=== PATIENT | female | born 2005 | race Caucasian/White ===

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

== ENCOUNTER 2025-04-26 08:13 | Emergency (ER) | payer OTHER, SELFPAY ==
--- OUTSIDE RECORDS SUMMARY | 2025-04-26 08:13 | XMS_ITS | Encounter Summary ---
Author Organization [facility] Address [address] [place] [address] Phone Care Team Providers Care Double End Tenoner Setter Name Role Phone Geena Ravi MD Primary Care Provider [phone] Reason for Visit * Reason Comments ED Admission Encounter Details Date Type Department Care Team (Late st Contact Info) Description 04/26/2025 8:13 AM EDT - Present Emergency [facility] - Patient Ping Social History Tobacco Use Types Packs/Day Years Used Date Smoking Tobacco: Never Assessed Alcohol Use Standard Drinks/Week Comments Never 0 (1 standard drink = 0.6 oz pur e alcohol) Hunger/Food Answer Date Recorded In the last 12 months, did y ou or your family ever eat less than you felt you should because there wasn't enough money for food? No 02/14/2024 Stable Housing Answer Date Recorded Are you worried that in the next 2 months you may not have stable housing? No 02/14/2024 Transportation Concerns Answer Date Rec orded In the last 12 months, have you or your family ever had to go without healthcare because you didn't have a way to get there? No 02/14/2024 Hazards in Home Answer Date Recorded Think about the place you li ve. Do you have problems with any of the following? Pests (mice or roaches), mold, no/not working smoke detectors, water leaks, no window guards. No 2023 Financing Utilities Answer Date Recorde d In the last 12 months, has t he electric, gas, oil, or water company threatened to shut off your services in your home? No 02/14/2024 Safety at Home Answer Date Recorded Are you or your family worried about feeling saf e in your home? No 02/14/2024 Outside Support Answer Date Recorded Do you feel that you need mo re support from other people or programs to help you care for yourself or your family? No 02/14/2024 Understanding Health Concerns Answer Da te Recorded Do you need help understandi ng your or your child's healthcare needs (diagnosis, medications, plan, etc.)? No 02/14/2024 Financing Health Concerns Answer Date R ecorded In the last 12 months, was t here a time when your child needed to see a doctor or get medications or supplies but could not because of cost? No 02/14/2024 Missing School or Work Answer Date Víctor rded Did you or your child miss s chool or work because of a health problem that could have been avoided? No 02/14/2024 Child Education Answer Date Recorded Do you have concerns about y our/your child's learning or behavior in school, preschool, or daycare? No 02/14/2024 Comments No Sex and Gender Information Value Date Recorded Sex Assigned at Female 02/14/2024 9:20 AM EDT Legal Sex Female 4:20 PM EDT Gender Identity Female 02/14/2024 9:20 AM EDT Sexual Orientation Straight 02/14/2024 9: 20 AM EDT documented as of this encounter Plan of Treatment Not on file documented as of this encounter Visit Diagnoses Not on filedocumented in this encounter Care Teams Double End Tenoner Setter Relationship Specialty [place] [address] [place], [place] [address] [address] PCP - General Pediatrics 07/19/22 documented as of this encounter
[2025-04-26 08:20] VITALS: BP 105/55; PULSE 80; RESP 18; TEMP 36.8; O2SAT 99; BMI 27.4
--- OUTSIDE RECORDS SUMMARY | 2025-04-26 08:43 | XMS_ITS | Clinical Summary ---
Author Organization [facility] Address [address] [place] [address] Phone Care Team Providers Care Aircraft Maintenance Instructor Name Role Phone Physician, Pcp Unknown Primary Care Provider Lyssa vailable Allergies Active Allergy Reactions Criticality Noted Date Comments Latex 02/21/2025 Other Reaction(s): Swelling of labia Encounters Date Type Department Care Team Description 02/21/2025 5:16 PM EDT - 02/21/2025 7:44 PM EDT Emergency [facility] [address] [place] [address] Lymphadenopathy (Primary Dx); Acute pharyngitis due to other specified organisms Discharge Disposition: Home or Self Care from Last 3 Months Social History Tobacco Use Types Packs/Day Years Used Date Smoking Tobacco: Never Assessed Comments Unknown Sex and Gender Information Value Date Recorded Sex Assigned at Not on file Legal Sex Female 7:05 AM EST Gender Identity Not on file Sexual Orientation Not on file Obstetrics History Growth Chart Information Age Height Weight Hdylns-[id number] th Percentile BMI Percentile Head Circum Head Circum Percentile Date 19 years 157.5 cm (5' 2 ) 63.5 kg (140 lb) 82.54%* 2024 * [facility] (Girls, 2-20 Years) Last Filed Vital Signs Vital Sign Reading Time Taken Comments Blood Pressure 123/81 02/21/2025 7:30 PM EDT Pulse 62 02/21/2025 7:30 PM EDT Temperature 36.8 C (98.2 F) 02/21/2025 7:30 PM EDT Respiratory Rate 18 02/21/2025 7:30 PM EDT Oxygen Saturation 100% 02/21/2025 7:30 PM EDT Inhaled Oxygen Concentration - - Weight 63.5 kg (140 lb) 02/21/2025 5:10 PM EDT Height 157.5 cm (5' 2 ) 02/21/2025 5:10 PM EDT Body Mass Index 25.61 02/21/2025 5:10 PM EDT Plan of Treatment Health Maintenance Due Date Last Done Comments Gonorrhea/Chlamydia Screening 2005 HIV Screening 09/05/2022 Hepatitis C Screening 09/05/2022 Social Influencers of Health Screening 09/05/2022 COVID-19 Vaccine ( season) 2024 03/23/2021, 02/27/2021 Depression Screening 10/03/2024 Annual Well Child Visit (3-21 years old) 02/13/2025 02/14/2024, 12/21/2022 Influenza Vaccine (#1) 2025 , 07/29/2022, 07/21/2021, Additional history exists DTaP,Tdap,and Td Vaccines (7 - Td or Tdap) 12/21/2027 12/20/2017, 11/14/2009, 03/13/2008, Additional history exists Hepatitis B Vaccines Completed 07/26/2006, 2005, 2005, Additional history exists HIB Vaccines Completed 11/14/2009, 12/02, 07/26/2006, Additional history exists IPV Vaccines Completed 11/14/2009, 03/2007, 04/25/2006, Additional history exists MMR Vaccines Completed 06/25/2011, 12/22/2006 Varicella Vaccines Completed 06/25/2011, 11/22/2006 Hepatitis A Vaccines Completed 12/20/2017, 11/29/19 08 HPV Vaccines Completed 07/21/2018, 07/04, 09/19/2015 Meningococcal ACWY Vaccine Completed 07/29/2022, Meningococcal B Vaccine Completed 02/14/2024, 12/21 Pneumococcal Vaccine: Pediatrics (0 to 5 Years) and At-Risk Patients (6 to 49 Years) Aged Out No longer eligible based on patient's age to complete this topic RSV Immunization Patients Under 20 months Aged Out No longer eligible based on patient's age to complete this topic Care Teams Aircraft Maintenance Instructor Relationship Specialty Start Date End Date Physician, Pcp Unknown PCP - General 02/21/25
--- OUTSIDE RECORDS SUMMARY | 2025-04-26 08:43 | XMS_ITS | Encounter Summary ---
Author Organization [facility] Address [address] [facility] [address] [place] [address] Care Team Providers Care Probation Counselor Name Role Phone Unavailable Primary Care Provider Unavailabl e Reason for Visit * Reason Onset Date Comments insurance posting 03/01/2024 Encounter Details Date Type Department Care Team (Late st Contact Info) Description 03/01/[address] [facility] [address], [place] [phone] Jessica Ramos DDS [address], [place] [phone] insurance posting Social History Tobacco Use Types Packs/Day Years Used Date Smoking Tobacco: Never Smokeless Tobacco: Never Alcohol Use Standard Drinks/Week Comments Defer 0 (1 standard drink = 0.6 oz pur e alcohol) Comments Unknown Sex and Gender Information Value Date Recorded Sex Assigned at Female 03/01/2024 9:55 AM EDT Legal Sex Female 9:52 AM EDT Gender Identity Female 03/01/2024 9:55 AM EDT Sexual Orientation Choose not to disclose 2023 9:55 AM EDT documented as of this encounter Miscellaneous Notes * Telephone Encounter - Nida Clark - 03/01/2024 9:58 AM EDT Unable to post insurance due to website not working to view history. Confirmation of elibility posted DR documented in this encounter Plan of Treatment Not on file documented as of this encounter Visit Diagnoses Not on filedocumented in this encounter
--- OUTSIDE RECORDS SUMMARY | 2025-04-26 08:43 | XMS_ITS | Data Portability ---
Author Organization [place] - [facility], Allergy Address [address] [facility] [address] [place] [address] Care Team Providers Care Process Artist Name Role Phone MEEKRISH Referring Provider WILMAR SORIANO Primary Care Provider Assessment Encounter Date Assessment Date Assessment LastModified by Organization Details LastModified Time 12/20/2024 12/20/2024 19yo female with history of epistaxis presents for evaluation of right epistaxis. Nasal examination today identified a prominent bleeding source on the anterior right septum. This site was cauterized with silver nitrate. Basic epistaxis precautions were discussed including avoidance of nose blowing, nose picking, straining, bending forward, exertion, heavy lifting, steamy showers, and sneezing with the mouth open for two weeks. Recommend local wound care with saline nasal spray 4-6 times daily, nasal saline gel at night, Afrin with episodes of bleeding and packing the nose with Bleed Cease (available OTC) if any additional bleeding. May use Ponaris Nasal Emollient 1/2 dropper twice daily as needed with dryness. Patient will return in 4 to 6 weeks for reevaluation. [email or web address] Not available 12/20/2024 17:28:32 Plan of Treatment Reminders Order Date Submit Date Provider Last Modified By Organization Details Last Modified Time Details Appointments None recorded . Lab None recorded . Referral None recorded . Procedures None recorded . Surgeries None recorded . Imaging None recorded . Medication Orders Mchenry Saline Gel nasal spray 025 12/21/19 [facility]/Pharmacy #[id number], [address] [facility], [place], [address], 03/20/202 5 13:13:20 Mchenry Saline nasal gel 025 12/21/19 25 [facility]/Pharmacy #[id number], [address] [place], [address], 5 13:13:20 Patient TargetsNo targets recorded. Patient InstructionsNo instructions recorded. Reason for Referral None Reported. Problems Name Problem SNOMED Code Status Onset Date Resolution Date Notes Provider Name and Address Organization Details Recorded Time Headache 89627628 Active 2019 Headache; Note: Date Diagnosed : 03/14/2020 8:45 AM (R51) Not Available [facility] 4 02:18:51 Palpitati ons 50717182 Active 2019 Palpitati ons; Note: Date Diagnosed : 03/14/2020 8:45 AM (R00.2) Not Available [facility] 4 02:18:51 Abnormal auditory perceptio n 27181636 Active 2019 Other abnormal auditory perceptio ns, bilateral ; Note: Date Diagnosed : 03/14/2020 8:45 AM (H93.293) Not Available [facility] 4 02:18:39 Dizziness and giddiness 488738388 Active 2019 Dizziness and giddiness ; Note: Date Diagnosed : 03/14/2020 8:45 AM (R42) Not Available [facility] 4 02:19:04 Bilateral temporoma ndibular joint pain 38923147290 869710 Active 2021 Arthralgi a of bilateral temporoma ndibular joint; Note: Date Diagnosed : 01/18/2022 1:49 PM (M26.623) Not Available [facility] 4 02:18:16 Bilateral earache 668179237 Active 2021 Otalgia, bilateral ; Note: Date Diagnosed : 01/18/2022 1:49 PM (H92.03) Not Available [facility] 4 02:18:36 Referred otalgia 72340729 Active 2021 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 - [facility] 09:16:23 Problem Notes None recorded. Procedures Surgical History Date Name Laterality Status Provider Name and Address Organization Details Recorded Time Epistaxis Simple Nasal Cautery Right completed JOSR OLIVEIRA PA-C [address] [facility],[place] [address], [place], [address], [facility] - [facility] 12/20/2024 17:27:53 Imaging Results None recorded. Procedure Notes None recorded. Medical Equipment None Reported. Allergies No known drug allergies Medications Name Sig Start Date Stop Date Status Note LastModified by Organization Details LastModified Time metronidazo le 500 mg tablet TAKE 1 TABLET BY MOUTH EVERY 12 HOURS FOR 7 DAYS 12/20 completed Not Available Not Available Not Available acetaminoph en 500 mg tablet TAKE 1 TABLET BY MOUTH EVERY 4 TO 6 HOURS NEEDED 12/20 completed Not Available Not Available Not Available amoxicillin 875 mg tablet TAKE 1 TABLET BY MOUTH TWICE A DAY 12/20 completed Not Available Not Available Not Available Mchenry Saline nasal gel Take 1 applicati on every day by nasal route at bedtime for 42 days, for nasal hydration . 2024 active Not Available Not Available Not Avai lable ibuprofen 600 mg tablet TAKE 1 TABLET BY MOUTH EVERY 6 TO 8 HOURS NEEDED 12/20 completed Not Available Not Available Not Available methylpredn isolone 4 mg tablets in a dose pack TAKE 6 TABLETS ON DAY 1 DIRECTED ON PACKAGE AND DECREASE BY 1 TAB EACH DAY FOR A TOTAL OF 6 DAYS 12/20 completed Not Available Not Available Not Available amoxicillin 875 mg-potassiu m clavulanate 125 mg tablet TAKE 1 TABLET BY MOUTH EVERY 12 HOURS 12/20 completed Not Available Not Available Not Available oxycodone 5 mg tablet TAKE 1 TABLET EVERY 6 HOURS NEEDED FOR BREAKTHRO UGH PAIN. 12/20 completed Not Available Not Available Not Available Mchenry Saline Gel nasal spray Take 2 sprays every 4-6 hours by nasal route for 42 days, for nasal hydration . 2024 active Not Available Not Available Not Avai lable chlorhexidi ne gluconate 0.12 % mouthwash RINSE MOUTH WITH 15ML (1 CAPFUL) FOR 30 SECONDS IN MORNING AND EVENING AFTER BRUSHING, THEN SPIT 12/20 completed Not Available Not Available Not Available Nexplanon 68 mg subdermal implant active Not Available Not Available Not Available Vitals Date Recorded Body height Body mass index (BMI) Body mass index (BMI) [Percentile] Per age and sex Body weight Provider Name and Address Organization Details Last Updated DateTime 12/20/2024 157.48 cm 24.7 kg/m2 78 % 44497.97 g Monique Rogers [place] - [facility] 12/20/2024 09:16:59 Social History None recorded. Functional Status None recorded. Mental Status None recorded. Family History Nothing Reported. Medical History No medical history recorded. Gynecological HistoryNo gynecological history recorded. Obstetrics History GPAL:G 0 P 0 0 0 0 Past Encounters Encounter ID Performer Location Encounter Start Date Encounter Closed Date Diagnosis/Indication Diagnosis SNOMED-CT Code Diagnosis ICD10 Code Diagnosis Note [id number] JOSR OLIVEIRA PA-C [facility] [address] [address] 12/20/2024 09:11:55 12/20/2024 09:57:22 Anterior epistaxis 831236732 R04.0 Health Concerns Section Related Observation LastModified by Organization Detai ls LastModified Time None Recorded Concern Status LastModified by Organization Details LastModified Time None Recorded Advance Directives Directive None Recorded Payers Insurance Date Sequence Insurance Name Policy Number Policy Nava Covered Member ID Nava Member ID Guarantor Name 12/20/2024 1 [facility] (MEDICAID REPLACEMENT - HMO) [employer] [id number] [employer] Notes Date Note Type Note Provider Name and Address Organization Details Recorded Time 12/20/2024 text/html ROS as noted in the HPI 19yo female presents for evaluation of right recurrent nosebleeds. This occurs 3-4 times daily. This restarted two months ago but occurs throughout the year. She pinches the nose to manage the bleeding. Episodes last 20 minutes. Starts spontaneously. Left cautery in 2021, beneficial. Associated dizziness after the nosebleed. Denies blood thinner or family history of bleeding disorder. VIVIAN LATANYA, MD [address] [place] [address], [phone], [place] - [facility] 12/25/2024 12:58:36 OBGyn Episode No OBEpisode recorded.
[2025-04-26 08:55] LABS: MANUAL DIFF FLAG NO
--- NOTE | 2025-04-26 08:55 | PC.NURSE ---
c/o intermittent upper abd pain/fullness after eating. feels better after vomiting. does not self-induce vomiting. no active vomiting in room. NAD.
[2025-04-26 08:56] LABS: Hematocrit 36.0 % (37.0-47.0); Hemoglobin 11.7 g/dl (12.0-16.0); Imm Gran Abs Auto 0.02 X10*3/uL (0.00-0.03); Imm Gran Pct Auto 0.3 % (0.0-0.4); Lymphocytes Absolute Auto 1.7 X10*3/uL (1.2-4.9); Mean Corpuscular HGB Conc 32.5 g/dl (31.0-35.0); Mean Corpuscular Hemoglobin 25.7 pg (27.0-33.0); Mean Corpuscular Volume 78.9 fL (80.0-98.0); NRBC Abs Auto 0.000 X10*3/uL (0.0-0.012); NRBC Pct Auto 0.0 /100WBC (0.0-0.2); Platelet Count 324 X10*3/uL (160-400); Red Blood Count 4.56 X10*6/uL (4.20-5.50); White Blood Count 7.1 X10*3/uL (4.8-10.8)
[2025-04-26 09:17] LABS: Alanine Aminotransferase 36 U/L (0-31); Albumin Level 4.4 g/dL (3.5-5.0); Alkaline Phosphatase 91 U/L (39-117); Anion Gap 12 (12-20); Aspartate Amino Transferase 33 U/L (5-31); Blood Urea Nitrogen 13 mg/dL (9-16); Calcium 8.9 mg/dL (8.4-10.2); Carbon Dioxide 23 mmol/L (22-29); Chloride 110 mmol/L (96-108); Creatinine Clr Calc Pharmacy 109.1; Estimated Glomerular Filt Rate > 60; Lipase 21 U/L (8-78); Potassium 4.1 mmol/L (3.3-5.1); Sodium 141 mmol/L (135-145); Total Protein 7.2 g/dL (6.5-8.0)
[2025-04-26 09:49] VITALS: BP 113/52; PULSE 65; RESP 16; TEMP 36.8; O2SAT 99
[2025-04-26 09:50] LABS: Appearance Urine Clear; Glucose Urine UA Negative (Negative); PH 7.0 (5.0-9.0); Specific Gravity - Urine 1.025 (1.005-1.025); UMIC TRIGGER UACC YES; UPreg QC Valid YES
--- NOTE | 2025-04-26 10:19 | ED.ABDPAIN ---
HPI - Abdominal Pain General Chief Complaint: Abdominal Pain Stated Complaint: Nausea Stomach Pain Time Seen by Provider: 04/26/25 09:03 Source: patient Mode of arrival: ambulatory Limitations: no limitations History of Present Illness ED Provider: bert cotto down filler HPI narrative: Patient is a 19-year-old female who presents emergency department for evaluation. She reports over the past month she has been experiencing pain in her epigastric region that typically worsens after eating. It has been intermittent in nature. Initially her mother had provided her with some constipation medication though she was not constipated. This did not alleviate her symptoms. She has taken Tums on occasion is unclear whether it has really been of benefit for her. She comes into emergency department today because her pain last night was more severe, she only took Tylenol yesterday which did not alleviate her symptoms. She has not yet seen her primary care provider for this. Denies fevers, chills, chest pain, nausea, vomiting, hematemesis, diarrhea, constipation, hematochezia, melena, dysuria, urinary frequency, urinary urgency, urinary hesitancy, hematuria. Related Data Previous Rx's ?Medication ?Instructions ?Recorded amoxicillin 875 mg-potassium 1 tab PO Q12H 7 days #14 tabs 07/03/21 clavulanate 125 mg tablet (Augmentin) ondansetron HCl 4 mg tablet 4 mg PO Q8H PRN nausea and 07/03/21 (Zofran) vomiting #7 tabs nitrofurantoin 100 mg PO Q12H 7 days #14 caps 06/11/23 monohydrate/macrocrystals 100 mg capsule (Macrobid) omeprazole 20 mg capsule,delayed 20 mg PO DAILY #14 caps 04/26/25 release sucralfate 1 gram tablet 1 g PO BID #30 tabs 04/26/25 Allergies Allergy/AdvReac Type Severity Reaction Status Date / Time guinea pigs Allergy Swelling Uncoded 04/26/25 08:22 Review of Systems Review of Systems Yes all other systems are reviewed and are negative PMFSH Past Medical History Attestation statement: The following information was validated with the patient. Source: old records reviewed Medical History Scoliosis No known health problems No known health problems Social History Social History Advance Directives: No Advance Directives Information Provided: Yes Do you have a plan to hurt others: No Plan Physical Exam ED Vital Signs: Vital Signs - 24 hr 04/26/25 08:20 04/26/25 09:49 Temperature 98.3 F 98.3 F Pulse Rate 80 65 Respiratory Rate 18 16 Blood Pressure 105/55 L 113/52 L Pulse Oximetry 99 99 Oxygen Delivery Method Room Air BMI result Body Mass Index 27.4 Appearance: Alert.?Oriented to person, place and time. No acute distress.?Normal affect.?? Neck: Normal inspection.? Neck supple.?? CVS: Heart sounds normal. Normal heart rate and rhythm.? Pulses normal.?? Respiratory: No respiratory distress.? Lung sounds clear to auscultation bilaterally?? Abdomen: Soft and non-tender. No rebound tenderness at McBurney's point. Negative psoas sign. Negative Rovsing sign. Negative Manjarrez sign. No CVAT. Normoactive bowel sounds. No pulsatile mass.?? Skin: Skin warm and dry.? Normal skin color.? Extremities: No lower extremity edema.? Neuro: Moves all extremities spontaneously. Sensation intact bilaterally. Ambulates with normal steady gait. Medical Decision Making Medical Decision Making MDM Narrative: Patient is a 19-year-old female with no reported past medical history who presents emergency department for evaluation of epigastric abdominal pain intermittent over the past month but worse as of last night as per HPI. Overall she is well-appearing, nontoxic, afebrile. She has a benign examination, no signs of systemic toxicity. Examination is not consistent has been as she has no peritoneal signs. She has no associated chest pain shortness of breath to suggest respiratory pathology such as. No clinical evidence of DVT or history of VTE/malignancy that would suggest pulmonary embolism. No risk factors for ACS and no associated chest pain. Her abdominal examination is benign I have a lower suspicion for acute abdominal etiology such as acute cholecystitis, choledocholithiasis and certainly is without fever jaundice that would suggest acute cholangitis. Possible she may have biliary colic secondary to cholelithiasis they her LFTs and lipase are unremarkable. Symptoms most concerning for GERD/gastritis, no recent hematemesis that would favor PUD. Denies excessive alcohol consumption or history of diabetes that would favor pancreatitis. Will trial GI cocktail department pending re-evaluation. CBC is without leukocytosis, mild microcytic anemia not meeting transfusion criteria, no thrombocytopenia. No significant electrolyte derangement, no JAMES. Minimally elevated AST/ALT at 33/36 with normal lipase. HCG is negative. Urinalysis without evidence of infection. Symptomatic improvement after receiving GI cocktail, feel she is stable for discharge home outpatient follow-up with primary care provider given strict return precautions. All questions answered. Differential Diagnosis Differential Diagnoses: The differential diagnosis associated with the presentation includes (See narrative above) Admission/Observation Consideration of admission/observation: Escalation of care including admission/observation considered (See narrative above ) Lab Data MDM Lab Attestation statement: I reviewed the patient's lab results. 04/26/25 08:46 04/26/25 08:46 Labs: Lab Results 04/26/25 04/26/25 Range/Units 08:46 09:39 WBC 7.1 (4.8-10.8) X10*3/uL RBC 4.56 (4.20-5.50) X10*6/uL Hgb 11.7 L (12.0-16.0) g/dl Hct 36.0 L (37.0-47.0) % MCV 78.9 L (80.0-98.0) fL MCH 25.7 L (27.0-33.0) pg MCHC 32.5 (31.0-35.0) g/dl RDW 15.4 (11.0-16.0) % Plt Count 324 (160-400) X10*3/uL MPV 10.0 (9.4-12.3) fL Immature Gran % (Auto) 0.3 (0.0-0.4) % Neut % (Auto) 62.2 (45-73) % Lymph % (Auto) 23.4 (20-40) % [place] % (Auto) 8.2 (2-11) % Eos % (Auto) 4.9 H (0-4) % Baso % (Auto) 1.0 (0-2) % Lymph # (Auto) 1.7 (1.2-4.9) X10*3/uL [place] # (Auto) 0.6 (0.1-1.2) X10*3/uL Eos # (Auto) 0.4 (0.0-0.4) X10*3/uL Baso # (Auto) 0.1 (0.0-0.2) X10*3/uL Abs Immat Gran (auto) 0.02 (0.00-0.03) X10*3/uL Absolute Neuts (auto) 4.4 (2.0-8.3) x10*3/uL Absolute Nucleated RBC 0.000 (0.0-0.012) X10*3/uL Nucleated RBC % (auto) 0.0 (0.0-0.2) /100WBC Sodium 141 (135-145) mmol/L Potassium 4.1 (3.3-5.1) mmol/L Chloride 110 H (96-108) mmol/L Carbon Dioxide 23 (22-29) mmol/L Anion Gap 12 (12-20) BUN 13 (9-16) mg/dL Creatinine 0.75 (0.5-1.4) mg/dL Estim Creat Clear Calc 109.1 Estimated GFR > 60 Random Glucose 88 (60-115) mg/dL Calcium 8.9 D (8.4-10.2) mg/dL Total Bilirubin 0.3 (0.0-1.0) mg/dL Direct Bilirubin 0.2 (0.0-0.5) mg/dL AST 33 H (5-31) U/L ALT 36 H (0-31) U/L Alkaline Phosphatase 91 (39-117) U/L Total Protein 7.2 (6.5-8.0) g/dL Albumin 4.4 (3.5-5.0) g/dL Lipase 21 (8-78) U/L Beta HCG, Quant < 2 mIU/mL Urine Color Yellow Urine Appearance Clear Urine pH 7.0 (5.0-9.0) Ur Specific [place] 1.025 (1.005-1.025) Urine Protein Negative (Neg-Trace) mg/dL Urine Glucose (UA) Negative (Negative) mg/dL Urine Ketones Negative (Negative) mg/dL Urine Blood Small (1+) H (Negative) Urine Nitrite Negative (Negative) Ur Leukocyte Esterase Negative (Negative) Urine RBC 0-2 (0-2) /HPF Urine WBC 0-5 (0-5) /HPF Ur Squamous Epith Cells 3-5 (0-2) /HPF Urine Bacteria None Seen (None Seen) Hyaline Casts 0-2 (0-2) /LPF Urine Test NEGATIVE (NEGATIVE) Independent Historian Clinical information obtained from an independent historian. History obtained from or confirmed by: Parent External Record Review External record reviewed: Outpatient record Prescription Management I considered prescription management with: Other (See narrative above) Medications Administered Discontinued Medications Generic Name Dose Route Start Last Admin Trade Name Freq PRN Reason Stop Dose Admin Al Hydroxide/Mg Hydroxide 30 ml 04/26/25 10:18 04/26/25 11:06 Magnesium Hydrox/Alum Hydrox 30 Ml Oral.Susp PO 04/26/25 10:19 30 ml ONCE ONE Administration Famotidine 20 mg 04/26/25 10:18 04/26/25 11:06 Famotidine 20 Mg Tablet PO 04/26/25 10:19 20 mg ONCE ONE Administration Lidocaine HCl 15 ml 04/26/25 10:18 04/26/25 11:06 Lidocaine Hcl Viscous 2 % 15 Ml Solution MUCOUS MEM 04/26/25 10:19 15 ml ONCE ONE Administration Discharge Plan Discharge Clinical Impression: Gastritis Patient Disposition: Home, Self-Care Instructions: Gastritis (ED) Additional Instructions: Avoid triggers such as fatty foods, spicy foods, tomatoes, onions, coffee, tea, chocolate, and alcohol. Remaining upright after meals for 1-2 hours. Avoid eating at least 3 hours before bedtime. Try sleeping on an incline if possible. Follow-up with your primary care doctor. Return back to emergency department any new or worsening symptoms or concerns Prescriptions: New omeprazole 20 mg capsule,delayed release(DR/EC) 20 mg PO DAILY Qty: 14 0RF sucralfate 1 gram tablet 1 g PO BID Qty: 30 0RF No Action amoxicillin-pot clavulanate [Augmentin] 875-125 mg tablet 1 tab PO Q12H 7 Days Qty: 14 0RF ondansetron HCl [Zofran] 4 mg tablet 4 mg PO Q8H PRN (Reason: nausea and vomiting) Qty: 7 0RF nitrofurantoin monohyd/m-cryst [Macrobid] 100 mg capsule 100 mg PO Q12H 7 Days Qty: 14 0RF Rx Instructions: must administer with a meal/food Referrals: Physician,None [Primary Care Provider, Medical] Print Language: Libyan
[2025-04-26] MEDS: Magnesium Hydrox/Alum Hydrox 30 ML ORAL.SUSP PO (11:06)
[2025-04-26] MEDS: Lidocaine HCl Viscous 2 % 15 ML SOLUTION MUCOUS MEM (11:06)
[2025-04-26 12:00] VITALS: BP 103/67; PULSE 78; RESP 15; TEMP 37.1; O2SAT 99
--- NOTE | 2025-04-26 12:12 | PC.NURSE ---
reports feeling a little better.
[2025-04-26 12:45] VITALS: BP 103/67; PULSE 78; RESP 15; TEMP 37.1; O2SAT 99
== END 2025-04-26 12:46 | disposition home or self-care (01) ==
PROVIDERS: Nurse Practitioner Family; Emergency Provider Emergency Medicine Emergency Medical Services
DX: K29.70 Gastritis, unspecified, without bleeding (principal); R10.9 Unspecified abdominal pain; R10.13 Epigastric pain
CPT/HCPCS: 36415; 80048; 80076; 81001; 81025; 83690; 84702; 85025; 99283

== ENCOUNTER 2025-05-07 11:27 | Outpatient (REF) | payer OTHER, SELFPAY ==
--- OUTSIDE RECORDS SUMMARY | 2025-05-08 12:12 | XMS_ITS | Encounter Summary ---
Author Organization [facility] Address [address] [place] [address] Phone Care Team Providers Care Lei Seller Name Role Phone Geena Ravi MD Primary Care Provider [phone] Reason for Visit * Reason Onset Date Comments ED Visits 05/02/2025 Encounter Details Date Type Department Care Team (Late st Contact Info) Description 05/02/2025 Telephone Pediatric [facility] Ad[facility] Medicine - [address] [place] [address] Myranda Lemus LPN [address] [facility] [address] [place] [address] ED Visits Social History Tobacco Use Types Packs/Day Years [...] encounter Miscellaneous Notes * Telephone Encounter - Lindsay Garcia RN - 05/02/2025 4:04 PM EDT No call back so called to preferred #, was Alex. Informed her per message from Dr Bradshaw She was not able to come in tomorrow as she works until 4 pm and we have no late appts. She is also still working on getting insurance reinstated. She told me that she just wants the Nexplanon out and will pay out of pocket for a visit if she hasto. I checked with Daylin in billing and she did not have an expected cost for the visit if Alex pays out of pocket. We booked an appt with for 05/06/25, later in the afternoon. Alex will continue to try and get her insurance back by then. I also informed her that I will forward a message to [facility] for any additional info prior to the appt. Alex asked for call to her mom 05/03 as she will be at work. Mom's cell, . Advised Alex that she is go back to the ER for any sxs prior to appt. * Telephone Encounter - Myranda Lemus LPN - 05/02/2025 1:21 PM EDT Call to mom No answer Left message for a return call * Telephone Encounter - Nedra Bradshaw MD - 05/02/2025 1:02 PM EDT I'm sorry to hear Alex is going through all this. I am not quite sure what to make of her symptoms. It looks like she has seen SM for the majority of her visits over the last couple years. I would recommend scheduling a consult visit with SM tomorrow and review ED precautions if symptoms recurin the interim. * Telephone Encounter - Myranda Lemus LPN - 05/02/2025 12:11 PM EDT To KAYLEIGH as SM out Patient has been seen in the ED x 3 Patient was dizzy, speech issues confusions numbness and tingling on left leg, migraine like headache, nausea vomiting and abdominal pain. ED did testing and labs and she was told everything was normal Patient did have the Nexplanon implant inserted on 12/21/24 by Many of these symptoms are listed for Nexplanon and some are under rare and report them to a provider Mom concerned for stroke Patient insurance has lasped and she is calling this afternoon to have it re- instated Mom to call billing office as well to see if she can be seen SM out of building sending to JK Please advise documented in this encounter Plan of Treatment Not on file documented as of this encounter Visit Diagnoses Not on filedocumented in this encounter Care Teams Lei Seller Relationship Specialty Start Date End Date Geena Ravi MD [address] [facility] [place] [address] PCP - General Pediatrics 07/19/22 documented as of this encounter
--- OUTSIDE RECORDS SUMMARY | 2025-05-08 12:13 | XMS_ITS | Encounter Summary ---
Author Organization [employer] Address [address] [facility] [address] [place] [address] Care Team Providers Care Technical Spec Name Role Phone Unavailable Primary Care Provider Unavailabl e Reason for Visit * Reason Onset Date Comments Appointment Request 05/07/2025 Patient need s a new patient appointment Encounter Details Date Type Department Care Team (Late st Contact Info) Description 05/07/2025 Telephone [facility] [address] [place], [place] [phone] Maribel Donaldson MD [address] [place], [place] [phone] Appointment Request (Patient needs a new patient appointment) Social History Tobacco Use Types Packs/Day Years [...] encounter Miscellaneous Notes * Telephone Encounter - Christin Walter - 05/08/2025 9:16 AM EDT Patient added to [facility] New Patient wait list as of 05/08/25. * Telephone Encounter - Yony Disla MA - 05/07/2025 4:19 PM EDT Patient needs a new patient appointment documented in this encounter Plan of Treatment Upcoming Encounters Date Type Department Care Team (Late st Contact Info) Description 06/13/2025 11:00 AM EDT Procedure Visit [facility] [address] [place] [address] Rosina Henley CNM [address] [place] [address] documented as of this encounter Visit Diagnoses Not on filedocumented in this encounter
--- OUTSIDE RECORDS SUMMARY | 2025-05-08 12:13 | XMS_ITS | Clinical Summary ---
Author Organization [facility] Address [address] [place] [address] Phone Care Team Providers Care Strategy Planning Consultant Name Role Phone Geena Ravi MD Primary Care Provider [phone] Allergies Active Allergy Reactions Criticality Noted Date Comments Latex 02/21/2025 Other Reaction(s): Swelling of labia Medications aluminum-magnesium hydroxide-simethic one (MAALOX MAX) 400-400-40 mg/5 mL suspension Take 10 mL by mouth 4 (four) times a day (before meals and nightly) for 10 days. 355 mL 5 05/10/20 25 Active sucralfate (CARAFATE) 1 gram tablet Take 1 tablet (1 g total) by mouth 4 (four) times a day. 120 each 5 04/30/20 26 Active famotidine (PEPCID) 20 mg tablet Take 1 tablet (20 mg total) by mouth 2 (two) times a day for 15 days. 30 tablet 5 05/15/20 25 Active ondansetron ODT (ZOFRAN-ODT) 4 mg disintegrating tablet Dissolve 1 tablet (4 mg total) on top of the tongue every 8 (eight) hours if needed for nausea or vomiting for up to 7 days. 20 tablet 5 05/07/20 25 Encounters Date Type Department Care Team Description 04/30/2025 7:15 PM EDT - 04/30/2025 9:18 PM EDT Emergency [facility] [address] [place] [address] Franco Clark MD Nausea and vomiting, unspecified vomiting type (Primary Dx); Chronic gastritis without bleeding, unspecified gastritis type Discharge Disposition: Home or Self Care 04/27/2025 11:45 PM EDT - 04/28/2025 2:58 AM EDT Emergency [facility] [address] [place] [id number] Micheline Iqbal MD Acute nonintractable headache, unspecified headache type (Primary Dx) Discharge Disposition: Home or Self Care 02/21/2025 5:16 PM EDT - 02/21/2025 7:44 PM EDT Emergency [facility] [address] [place] [id number] Lymphadenopathy (Primary Dx); Acute pharyngitis due to [...] History Growth Chart Information Age Height Weight Kzvlws-xzl-criz th Percentile BMI Percentile Head Circum Head Circum Percentile Date 19 years 157.5 cm (5' 2 ) 68 kg (150 lb) 88.67%* 2024 19 years 157.5 cm (5' 2 ) 68 kg (150 lb) 88.68%* 2024 19 years 157.5 cm (5' 2 ) 63.5 kg (140 lb) 82.54%* 2024 * [facility] (Girls, 2-20 Years) Last Filed Vital Signs Vital Sign Reading Time Taken Comments Blood Pressure 125/85 04/30/2025 8:30 PM EDT Pulse 93 04/30/2025 8:30 PM EDT Temperature 37.2 C (99 F) 04/30/2025 8:30 PM EDT Respiratory Rate 18 04/30/2025 8:30 PM EDT Oxygen Saturation 100% 04/30/2025 8:30 PM EDT Inhaled Oxygen Concentration - - Weight 68 kg (150 lb) 04/30/2025 5:40 PM EDT Height 157.5 cm (5' 2 ) 04/30/2025 5:40 PM EDT Body Mass Index 27.44 04/30/2025 5:40 PM EDT Plan of Treatment Health Maintenance [...] on patient's age to complete this topic Procedures Procedure Name Priority Date/Time Associated Diagnosis Comments US ABDOMEN LIMITED STAT 04/30/2025 7: 57 PM EDT POC , URINE DIAGNOSTIC STAT 04/30/2025 7:14 PM EDT CBC WITH AUTO DIFFERENTIAL STAT 04/30/2025 7:04 PM EDT LIPASE STAT 04/30/2025 7:04 PM EDT COMPREHENSIVE METABOLIC PANEL STAT 04/30/2025 7:04 PM EDT CBC AND DIFFERENTIAL STAT 04/30/2025 7:04 PM EDT SORIANO URINE CULTURE TUBE STAT 04/30/2025 6:58 PM EDT URINALYSIS WITH REFLEX MICROSCOPIC AND CULTURE STAT 04/30/2025 6:58 PM EDT URINALYSIS WITH REFLEX MICROSCOPIC AND CULTURE STAT 04/30/2025 6:58 PM EDT SORIANO URINE CULTURE TUBE STAT 04/28/2025 1:52 AM EDT URINALYSIS WITH REFLEX MICROSCOPIC AND CULTURE STAT 04/28/2025 1:52 AM EDT URINALYSIS WITH REFLEX MICROSCOPIC AND CULTURE STAT 04/28/2025 1:[address] HEAD WO CONTRAST STAT 04/28/2025 1 :28 AM EDT CBC WITH AUTO DIFFERENTIAL STAT 04/28/2025 12:16 AM EDT HCG, SERUM, QUALITATIVE STAT 04/28/2025 12:16 AM EDT MAGNESIUM STAT 04/28/2025 12:16 AM EDT COMPREHENSIVE METABOLIC PANEL STAT 04/28/2025 12:16 AM EDT CBC AND DIFFERENTIAL STAT 04/28/2025 12:16 AM EDT from Last 3 Months Results * US Abdomen Limited (04/30/2025 7:57 PM EDT) Anatomical Region Laterality Modality Body Ultrasound 04/30/2025 8:23 PM EDT Impressions 04/30/2025 8:23 PM EDT Impression: Unremarkable right upper quadrant ultrasound. This document has been electronically signed by: Phong Dasilva MD on 04/30/2025 20:23:04 Narrative 04/30/2025 8:23 PM EDT INDICATION: RUQ abdominal pain, no prior imaging US limited to right upper quadrant Comparison: None Findings: Liver is normal size and reveals homogeneous echotexture. No focal hepatic lesions. No intrahepatic ductal dilatation. Right lobe length measures 16.4 cm. Portal vein reveals hepatopetal flow. Common bile duct measures 3 mm. Gallbladder appears unremarkable. No sonographic Manjarrez's sign. Right kidney is normal texture. No hydronephrosis. Right renal length is 10.2 cm. Procedure Note Phong Dasilva MD - 04/30/2025 INDICATION: RUQ abdominal pain, no prior imaging US limited to right upper quadrant Comparison: None Findings: Liver is normal size and reveals homogeneous echotexture. No focal hepatic lesions. No intrahepatic ductal dilatation. Right lobe length measures 16.4 cm. Portal vein reveals hepatopetal flow. Common bile duct measures 3 mm. Gallbladder appears unremarkable. No sonographic Manjarrez's sign. Right kidney is normal texture. No hydronephrosis. Right renal length is 10.2 cm. IMPRESSION: Impression: Unremarkable right upper quadrant ultrasound. This document has been electronically signed by: Phong Dasilva MD on 04/30/2025 20:23:04 us Franco NICHOLSON US PROCEDURES Final Result * POC , urine manually resulted (04/30/2025 7:14 PM EDT) HCG, Ur POC Negative Negative POC hCG Int QC Pass? Yes Yes Urine Urine specimen obtained by clean catch procedure / Unknown 04/30/2025 7:14 PM EDT us Jasvir Mitchell MD POINT OF CARE TEST ENTER/ED IT ORDERABLES Final Result * (ABNORMAL) CBC auto differential (04/30/2025 7:04 PM EDT) Only the most recent of2 resultswithin the time period is included. WBC 9.2 4.8 - 10.8 K/mcL LAB HEMETOLOGY METHOD 04/30/2025 7:25 PM EDT [facility] RBC 5.00(H) 3.80 - 4.80 M/mcL LAB HEMETOLOGY METHOD [facility] Hemoglobin 12.6 11.5 - 16.0 g/dL LAB HEMETOLOGY METHOD 04/30/2025 7:25 PM [facility] Hematocrit 39.8 35.0 - 47.0 % LAB HEMETOLOGY METHOD 04/30/2025 7:25 PM [facility] MCV 80.1 79.0 - 98.0 FL LAB HEMETOLOGY METHOD 04/30/2025 7:25 PM [facility] MCH 25.4(L) 27.0 - 32.0 pcg LAB HEMETOLOGY METHOD 04/30/2025 7:25 PM [facility] MCHC 31.7(L) 32.0 - 37.0 g/dL LAB HEMETOLOGY METHOD 04/30/2025 7:25 PM [facility] RDW 15.4(H) 11.0 - 15.0 % LAB HEMETOLOGY METHOD 04/30/2025 7:25 PM [facility] Platelets 370 130 - 400 K/mcL LAB HEMETOLOGY METHOD 04/30/2025 7:25 PM [facility] MPV 9.7 7.0 - 11.0 FL LAB HEMETOLOGY METHOD 04/30/2025 7:25 PM [facility] NRBC 0.0 <1.0 % LAB HEMETOLOGY METHOD 04/30/2025 7:25 PM EDT [facility] NRBC Absolute 0.00 <0.10 K/mcL LAB HEMETOLOGY METHOD 04/30/2025 7:25 PM [facility] Neutrophils Relative 67.7 % LAB HEMETOLOGY METHOD 04/30/2025 7:25 PM [facility] Lymphocytes Relative 19.3 % LAB HEMETOLOGY METHOD 04/30/2025 7:25 PM [facility] Monocytes Relative 9.9 % LAB HEMETOLOGY METHOD 04/30/2025 7:25 PM [facility] Eosinophils Relative 2.3 % LAB HEMETOLOGY METHOD 04/30/2025 7:25 PM [facility] Basophils Relative 0.5 % LAB HEMETOLOGY METHOD 04/30/2025 7:25 PM [facility] Immature Granulocytes Relative 0.3 % LAB HEMETOLOGY METHOD 04/30/2025 7:25 PM [facility] Neutrophils Absolute 6.22 1.50 - 7.00 K/mcL LAB HEMETOLOGY METHOD 04/30/2025 7:25 PM [facility] Lymphocytes Absolute 1.77 1.00 - 5.00 K/mcL LAB HEMETOLOGY METHOD 04/30/2025 7:25 PM [facility] Monocytes Absolute 0.91 0.20 - 1.00 K/mcL LAB HEMETOLOGY METHOD 04/30/2025 7:25 PM [facility] Eosinophils Absolute 0.21 0.00 - 0.50 K/mcL LAB HEMETOLOGY METHOD 04/30/2025 7:25 PM [facility] Basophils Absolute 0.05 0.00 - 0.20 K/mcL LAB HEMETOLOGY METHOD 04/30/2025 7:25 PM EDT [facility] Immature Granulocytes Absolute 0.03 0.00 - 0.03 K/mcL LAB HEMETOLOGY METHOD 04/30/2025 7:25 PM EDT [facility] Blood Venous blood specimen / Unknown Venipuncture / Unknown 04/30/2025 7:04 PM EDT 04/30/2025 7:20 PM EDT Jasvir Mitchell MD LAB BLOOD ORDERABLES Final Result Performing Organization Address City/[facility]/ZIP Co de Phone Number [facility] [address] [place] [address], [place] [phone] * Lipase (04/30/2025 7:04 PM EDT) Lipase 33 13 - 75 unit/L LAB CHEMISTRY METHOD 04/30/2025 7:45 PM EDT [facility] Blood Venous blood specimen / Unknown Venipuncture / Unknown 04/30/2025 7:04 PM EDT 04/30/2025 7:20 PM EDT Jasvir Mitchell MD LAB BLOOD ORDERABLES Final Result Performing Organization Address [facility]/ZIP Co de Phone Number [facility] [address] [place] [address], [place] [phone] * Comprehensive metabolic panel (04/30/2025 7:04 PM EDT) Only the most recent of2 resultswithin the time period is included. Sodium 139 133 - 145 mmol/L LAB CHEMISTRY METHOD 04/30/2025 7:47 PM EDT [facility] Potassium 3.9 3.5 - 5.5 mmol/L LAB CHEMISTRY METHOD 04/30/2025 7:47 PM EDT [facility] Chloride 104 96 - 110 mmol/L LAB CHEMISTRY METHOD 04/30/2025 7:47 PM EDT [facility] CO2 26 21 - 32 mmol/L LAB CHEMISTRY METHOD 04/30/2025 7:47 PM [facility] Anion Gap 9 3 - 11 LAB CHEMISTRY METHOD 04/30/2025 7:47 PM [facility] Glucose 83 70 - 100 mg/dL LAB CHEMISTRY METHOD 04/30/2025 7:47 PM [facility] BUN 11 5 - 25 mg/dL LAB CHEMISTRY METHOD 04/30/2025 7:47 PM [facility] Creatinine 0.97 0.50 - 1.10 mg/dL LAB CHEMISTRY METHOD 04/30/2025 7:47 PM [facility] eGFR 87 >=60 mL/min/1. 73m2 LAB CHEMISTRY METHOD 04/30/2025 7:47 PM [facility] Comment:Calculation based on the Chronic Kidney Disease Epidemiology Collaboration (CKD-EPI) equation refit without adjustment for race. BUN/Creatinine Ratio 11.3 LAB CHEMISTRY METHOD 04/30/2025 7:47 PM [facility] Calcium 10.0 8.5 - 10.5 mg/dL LAB CHEMISTRY METHOD 04/30/2025 7:47 PM [facility] AST (SGOT) 21 10 - 42 unit/L LAB CHEMISTRY METHOD 04/30/2025 7:47 PM [facility] ALT (SGPT) 35 10 - 60 unit/L LAB CHEMISTRY METHOD 04/30/2025 7:47 PM [facility] Alkaline Phosphatase 99 42 - 121 unit/L LAB CHEMISTRY METHOD 04/30/2025 7:47 PM [facility] Total Protein 7.7 6.0 - 8.0 g/dL LAB CHEMISTRY METHOD 04/30/2025 7:47 PM [facility] Albumin 4.3 3.2 - 5.0 g/dL LAB CHEMISTRY METHOD 04/30/2025 7:47 PM [facility] Total Bilirubin 0.3 0.0 - 1.4 mg/dL LAB CHEMISTRY METHOD 04/30/2025 7:47 PM EDT [facility] Blood Venous blood specimen / Unknown Venipuncture / Unknown 04/30/2025 7:04 PM EDT 04/30/2025 7:20 PM EDT us Jasvir Mitchell MD LAB BLOOD ORDERABLES Final Result [facility] [address] [place] [address], [place] [phone] * (ABNORMAL) Urinalysis with reflex microscopic and culture (04/30/2025 6:58 PM EDT) Only the most recent of2 resultswithin the time period is included. Specific [place] Urine 1.014 1.003 - 1.030 LAB URINALYSIS - AUTOMATED METHOD 04/30/2025 7:28 PM [facility] pH, Urine 6.0 5.0 - 8.0 pH LAB URINALYSIS - AUTOMATED METHOD 04/30/2025 7:28 PM [facility] Leukocytes, Urine Negative Negative LAB URINALYSIS - AUTOMATED METHOD 04/30/2025 7:28 PM [facility] Nitrite, Urine Negative Negative LAB URINALYSIS - AUTOMATED METHOD 04/30/2025 7:28 PM [facility] Protein, Urine 30(A) <=Trace mg/dL LAB URINALYSIS - AUTOMATED METHOD 04/30/2025 7:28 PM [facility] Glucose, Urine Negative Negative mg/dL LAB URINALYSIS - AUTOMATED METHOD 04/30/2025 7:28 PM [facility] Ketones, Urine Negative Negative mg/dL LAB URINALYSIS - AUTOMATED METHOD 04/30/2025 7:28 PM [facility] Urobilinogen , Urine 0.2 0.2 - 1.0 mg/dL LAB URINALYSIS - AUTOMATED METHOD 04/30/2025 7:28 PM [facility] Bilirubin, Urine Negative Negative LAB URINALYSIS - AUTOMATED METHOD 04/30/2025 7:28 PM [facility] Blood, Urine Moderate(A) Negative LAB URINALYSIS - AUTOMATED METHOD 04/30/2025 7:28 PM [facility] RBC, Urine 3.7 0 - 4 /HPF LAB URINALYSIS - AUTOMATED METHOD 04/30/2025 7:28 PM [facility] WBC, Urine 0.8 0 - 4 /HPF LAB URINALYSIS - AUTOMATED METHOD 04/30/2025 7:28 PM [facility] Squamous Epithelial, Urine 36 0 - 60 /LPF LAB URINALYSIS - AUTOMATED METHOD 04/30/2025 7:28 PM [facility] Bacteria, Urine Negative Negative /HPF LAB URINALYSIS - AUTOMATED METHOD 04/30/2025 7:28 PM [facility] Hyaline Casts, Urine 0.4 0 - 3 /LPF LAB URINALYSIS - AUTOMATED METHOD 04/30/2025 7:28 PM [facility] Urine Urine specimen obtained by clean catch procedure / Unknown Non-blood Collection / Unknown 04/30/2025 6:58 PM EDT 04/30/2025 7:20 PM EDT us Jasvir Mitchell MD LAB URINE ORDERABLES Final Result [facility] [address] [place] [address], * Soriano urine culture tube (04/30/2025 6:58 PM EDT) Only the most recent of2 resultswithin the time period is included. Extra Tube Hold for add-ons. 04/30/2025 9:01 PM EDT [facility] Comment:Auto resulted. Urine Urine specimen obtained by clean catch procedure / Unknown Non-blood Collection / Unknown 04/30/2025 6:58 PM EDT 04/30/2025 7:20 PM EDT Jasvir Mitchell MD LAB URINE ORDERABLES Final Result [facility] [address] [place] [address], [place] [phone] * CT Head wo Contrast (04/28/2025 1:28 AM EDT) Anatomical Region Laterality Modality Head and Neck Computed Tomogra phy 04/28/2025 2:00 AM EDT Impressions 04/28/2025 2:00 AM EDT No acute intracranial findings. This document has been electronically signed by: Patricio Mars MD on 04/28/2025 02:00:41 Narrative 04/28/2025 2:00 AM EDT INDICATION: Cerebral hemorrhage suspected CT Head WO Contrast COMPARISON: None provided FINDINGS: No acute intracranial hemorrhage. No evidence of acute infarction. No mass-effect or midline shift. No hydrocephalus. Visualized paranasal sinuses are clear. The mastoid air cells are clear. The visible orbits are normal. No acute fracture. Unremarkable soft tissues. Procedure Note Patricio Mars MD - 04/28/2025 INDICATION: Cerebral hemorrhage suspected CT Head WO Contrast COMPARISON: None provided FINDINGS: No acute intracranial hemorrhage. No evidence of acute infarction. No mass-effect or midline shift. No hydrocephalus. Visualized paranasal sinuses are clear. The mastoid air cells are clear. The visible orbits are normal. No acute fracture. Unremarkable soft tissues. IMPRESSION: No acute intracranial findings. This document has been electronically signed by: Patricio Mars MD on 04/28/2025 02:00:41 Micheline Iqbal MD IMG CT PROCEDURES Final Result * hCG, serum, qualitative (04/28/2025 12:16 AM EDT) hCG Qual Negative Negative 04/28/2025 1:10 AM EDT [facility] Blood Venous blood specimen / Unknown Venipuncture / Unknown 04/28/2025 12:16 AM EDT 04/28/2025 12:47 AM EDT Micheline Iqbal MD LAB BLOOD ORDERABLES Final Res ult [facility] [address] [place] [address], [place] [phone] * Magnesium (04/28/2025 12:16 AM EDT) Pathologist [facility] Magnesium 2.0 1.9 - 2.6 mg/dL LAB CHEMISTRY METHOD 04/28/2025 1:16 AM EDT [facility] Blood Venous blood specimen / Unknown Venipuncture / Unknown 04/28/2025 12:16 AM EDT 04/28/2025 12:47 AM EDT Micheline Iqbal MD LAB BLOOD ORDERABLES Final Res ult Performing Organization Address City/[facility]/ZIP Co de Phone Number [facility] [address] [place] [address], [place] [phone] from Last 3 Months Care Teams Strategy Planning Consultant Relationship Specialty Start Date End Date Geena Ravi MD [address] [place] [id number] PCP - General Pediatrics 04/27/25
[2025-05-08 13:15] LABS: CT PCR NOT DETECTED (Not Detect.); NG PCR NOT DETECTED (Not Detect.)
== END 2025-05-07 11:28 | disposition home or self-care (01) ==
LOC: HO.HHCLNP 11:27
PROVIDERS: Visit Provider Family Medicine
DX: Z30.09 Encounter for other general counseling and advice on contraception (principal)
CPT/HCPCS: 87491; 87591

== ENCOUNTER 2025-07-03 16:04 | Outpatient (REF) | payer OTHER, SELFPAY ==
--- OUTSIDE RECORDS SUMMARY | 2025-07-03 16:34 | XMS_ITS | Encounter Summary ---
Author Organization [employer] Address [address] [facility] [address] [place] [address] Care Team Providers Care Sales Support Consultant Name Role Phone Maribel Donaldson MD Primary Care Provider [phone] Reason for Visit * Reason Onset Date Comments chart prep 07/03/2025 Encounter Details Date Type Department Care Team ([facility] st Contact Info) Description 07/03/2025 Telephone [facility] [address] [place], [place] [phone] Maribel Donaldson MD [address] [place], [place] [phone] chart prep Social History Tobacco Use Types Packs/Day Years Used Date Smoking Tobacco: Never Smokeless Tobacco: Never Alcohol Use Standard Drinks/Week Comments Defer 0 (1 standard drink = 0.6 oz pur e alcohol) Depression Answer Date Recorded Patient Health Questionnaire-9 Score 4 05/29/2025 Patient Health Questionnaire-9 Score 4 05/29/2025 Last PHQ-9: Questionnaire Data Not on file 0 05/29/2025 Housing Stability Answer Date Recorded What is your housing situation today? I have sissy richey 05/29/[address] you li ve. Do you have problems with any of the following? None of the above 05/29/2025 Food Insecurity Answer Date Recorded Within the past 12 months, y ou worried that your food would run out before you got money to buy more: Never True 05/29/2025 Within the past 12 months,th e food you bought just didn't last and you didn't have enough money to get more: Never True Transportation Answer Date Recorded In the past 12 months, has l ack of transportation kept you from medical appts, meetings, work or from getting things needed for daily living? No 05/29/2025 Utilities Answer Date Recorded In the past 12 months, has t he electric, gas, oil or water company threatened to shut off services in your home? No 05/29/2025 Depression Answer Date Recorded Patient Health Questionnaire-2 Score 1 05/29/2025 Internet Access Answer Date Recorded Internet Access Q1 No 05/29/2025 Internet Access Q2 Not on file 05/29/2025 Comments Unknown Sex and Gender Information Value Date Recorded Sex Assigned at Female 03/01/2024 9:55 AM EDT Legal Sex Female 9:52 AM EDT Gender Identity Female 03/01/2024 9:55 AM EDT Sexual Orientation Choose not to disclose 2023 9:55 AM EDT documented as of this encounter Miscellaneous Notes * Telephone Encounter - Shiva Mcguire MA - 07/03/2025 2:22 PM EDT Chart Prep Labs: not done *Patient contacted to remind about lab work that were order on 05/29/25. Has not been done. Patient forgot will get them done tomorrow Images: done Referrals: complete Vaccines due: Covid and Flu Screenings: HIV screening Overdue care gaps: Fluoride documented in this encounter Plan of Treatment Upcoming Encounters Date Type Department Care Team (Late st Contact Info) Description 07/04/2025 9:45 AM EDT Office Visit [facility] [address] [place] [address] Maribel Donaldson MD [address] [place] [address] documented as of this encounter Visit Diagnoses Not on filedocumented in this encounter Additional Health Concerns Assessment Noted Time PHQ-9 Depression Total Score: 4 05/29/20 12:06 PM EDT documented as of this encounter Care Teams Sales Support Consultant Relationship Specialty Start Date End Date Maribel Donaldson MD [address] [place] [id number] PCP - General Family Medicine 05/13/25 documented as of this encounter
--- OUTSIDE RECORDS SUMMARY | 2025-07-03 16:34 | XMS_ITS | Clinical Summary ---
Author Organization [employer] Address [address] [facility] [address] [place] [address] Care Team Providers Care Drier Tender Naphthalene Name Role Phone Maribel Donaldson MD Primary Care Provider [phone] Allergies Active Allergy Reactions Criticality Noted Date Comments Latex Swelling 02/21/2025 Other Reaction(s): Swelling of labia Medications minocycline 100 MG capsuleIndicati ons:Cystic acne vulgaris Take 1 capsule (100 mg) by mouth 2 times daily. 60 capsule 05/13/2025 06/12/20 Active Problems Problem Noted Date Diagnosed Date Other specified health status 05/29/2025 Overview (05/29/2025): -next comprehensive annual evaluation due after 05/29/26 -eye care facilitated by [facility] is in [facility] proxy filed 05/29/25 Assessment & Plan (06/06/2025 10:43 AM EDT): -next comprehensive annual evaluation due after 05/29/26 -eye care facilitated by [facility] is in [facility] proxy filed 05/29/25 Hx of scoliosis 05/29/2025 Overview (06/06/2025): Dx age 17, seen at [facility] with Dr. Starla Bob MD X rays done at [facility], scoliosis stable. PT referral placed and recommended follow up prn for stable scoliosis. Assessment & Plan (06/06/2025 10:43 AM EDT): Dx age 17, seen at [facility] with Dr. Starla Bob MD X rays done at [facility] scoliosis stable. PT referral placed and recommended follow up prn for stable scoliosis. Orders: Vitamin D, 25-Hydroxy, Total, Immunoassay; Future Chronic back pain 05/29/2025 Overview (06/06/2025): Likely musculoskeletal. Non-focal, normal motor exam without neurological deficits. No back pain red-flags: bowel/bladder incontinence, IVDU, urinary retention, saddle anesthesia, and significant motor deficits. -Recommend continued topicals and lidocaine patch prn. -Physical therapy referral placed 05/29/25 -she will request standing desk via medical records -notes from [facility] requested 05/29/25 see scoliosis dx Assessment & Plan (06/06/2025 10:43 AM EDT): Likely musculoskeletal. Non-focal, normal motor exam without neurological deficits. No back pain red-flags: bowel/bladder incontinence, IVDU, urinary retention, saddle anesthesia, and significant motor deficits. -Recommend continued topicals and lidocaine patch prn. -Physical therapy referral placed 05/29/25 -she will request standing desk via medical records -notes from [facility] requested 05/29/25 see scoliosis dx Family planning 05/29/2025 Overview (05/29/2025): Nextplanon removed 05/07/25 due continued bleeding. Has a history of migraines with aura. Bleeding more and daily on Slynd Has appointment for hormonal IUD, GC/chl ordered 05/29/25 Assessment & Plan (06/06/2025 10:43 AM EDT): Nextplanon removed 05/07/25 due continued bleeding. Has a history of migraines with aura. Bleeding more and daily on Slynd Has appointment for hormonal IUD, GC/chl ordered 05/29/25 Abnormal menses 05/29/2025 Assessment & Plan (06/06/2025 10:43 AM EDT): Orders: Basic Metabolic Panel; Future CBC auto differential; Future TSH W/Reflex to FT4; Future Encounters Date Type Department Care Team Description 07/03/2025 Telephone [facility] [address] [place] [phone] Maribel Donaldson MD chart prep 06/12/2025 Telephone [facility] [address] [place] [phone] Gail Wu MA 05/29/2025 11:30 AM EDT Office Visit [facility] [address] [place] [phone] Maribel Donaldson MD Chronic midline thoracic back pain (Primary Dx); Hx of scoliosis; Dietary counseling; Exercise counseling; Abnormal menses; Family planning; Routine screening for STI (sexually transmitted infection); Screening cholesterol level; Other specified health status 05/29/2025 Travel 05/13/2025 5:40 PM EDT [facility] [address] [phone] Ana Meade MD Cystic acne vulgaris (Primary Dx) 05/13/2025 Travel 05/07/2025 5:40 PM EDT [facility] [address] [phone] Maribel Donaldson MD Family planning (Primary Dx); Routine screening for STI (sexually transmitted infection); Nexplanon removal 05/07/2025 Telephone [facility] [address] [place] [phone] Maribel Donaldson MD Appointment Request (Patient needs a new patient appointment) 05/07/2025 Travel from Last 3 Months Immunizations Immunization Administration Dates Next Due DTaP 11/14/2009, 8,07/26/2006,04/25,01/07/2006 HPV 9-Valent 07/21/2018,07/30/2016,09/19/2015 Hep A, ped/adol, 2 dose 12/20/2017,11/29/2007 Hep B, Adolescent or Pediatric 07/26/2006,2005,2005 Hep B, Unspecified 2005 HiB, unspecified 11/14/2009, 0,12/22/2006,12/22,07/26/2006,07/26/2006,04/25/2006 ,04/25/2006,01/07/2006,01/07/2006 IPV 11/14/2009, 7,04/25/2006,01/07 Influenza injectable quadriv alent IIV4 with preservative 07/21/2021,10/16/2020,07/12/2019,10/17,07/25/2012 Influenza injectable quadriv alent preservative free 07/29/2022 Influenza, seasonal, injecta ble, preservative free 06/13/2024 MMR 06/25/2011,12/22/2006 Meningococcal B, Recombinant 02/14/2024,12/22/19 Meningococcal MCV4O 07/29/2022 Meningococcal MCV4P [id number]-135 07/19/2017 Tdap 12/20/2017 Varicella 06/25/2011,11/22/2006 Social History Tobacco Use Types Packs/Day Years Used Date Smoking Tobacco: Never Smokeless Tobacco: Never Tobacco Cessation:Counseling Given: Not Answered Alcohol Use Standard Drinks/Week Comments Defer 0 (1 standard drink = 0.6 oz pur e alcohol) Depression Answer Date Recorded Patient Health Questionnaire-9 Score 4 05/29/2025 Patient Health Questionnaire-9 Score 4 05/29/2025 Last PHQ-9: Questionnaire Data Not on file 0 05/29/2025 Housing Stability Answer Date Recorded What is your housing situation today? I have [employer] [place] 05/29/[address] you [...] Q2 Not on file 05/29/2025 Comments Unknown Intention Date Recorded No desire to become (finding) 0 05/29/2025 Sex and Gender Information Value Date Recorded Sex Assigned at Female 03/01/2024 9:55 AM EDT Legal Sex Female 9:52 AM EDT Gender Identity Female 03/01/2024 9:55 AM EDT Sexual Orientation Choose not to disclose 2023 9:55 AM EDT Last Filed Vital Signs Vital Sign Reading Time Taken Comments Blood Pressure 106/64 05/29/2025 11:42 AM EDT Pulse 83 05/29/2025 11:42 AM EDT Temperature 35.6 C (96.1 F) 05/29/2025 11:42 AM EDT Respiratory Rate 20 05/29/2025 11:42 AM EDT Oxygen Saturation 99% 05/07/2025 4:17 PM EDT Inhaled Oxygen Concentration - - Weight 70 kg (154 lb 6.4 oz) 05/29/2025 11:42 AM EDT Height 157.5 cm (5' 2 ) 05/29/2025 11:42 AM EDT Body Mass Index 28.24 05/29/2025 11:42 AM EDT Plan of Treatment Upcoming Encounters Date Type Department Care Team (Late st Contact Info) Description 07/04/2025 9:45 AM EDT Office Visit [facility] [address] [place] [address] Maribel Donaldson MD [address] [place] [address] Health Maintenance Due Date Last Done Comments Dental Oral Exam 2005 Dental Prophylaxis 2005 Dental X-Ray: Bitewings 2005 HIV Screening 2005 Fluoride Varnish 07/02/2006 Hepatitis C Screening 2023 COVID-19 Vaccine ( season) 2025 03/23/2021, 02/27/2021 Influenza Vaccine (#1) 2025 , 07/29/2022, 07/21/2021, Additional history exists Chlamydia and Gonorrhea Screening 05/07/2026 05/07/2025, 12/05/2024, 02/14/2024 Alcohol/Substance Use Screening 05/29/2026 05/29/2025 Depression Screening 05/29/2026 05/29/2025, 05/29/20 25 Disability Screening 05/29/2026 05/29/2025 Family Planning (PISQ) 05/29/2026 05/29/2025 SDOH Screening 05/29/2026 05/29/2025 Tobacco Screening 05/29/2026 05/29/2025 Dental X-Ray: Full Mouth 03/02/2027 03/01/2024 DTaP/Tdap/Td Vaccines (7 - Td or Tdap) 12/21/2027 12/20/2017, 11/14/2009, 03/13/2008, Additional history exists Zoster Vaccines (1 of 2) 2055 RSV Patients and Patients Aged 60 years or older (1 - 1-dose 75+ series) 2080 Hepatitis B Vaccines Completed 07/26/2006, 2005, 2005, Additional history exists HIB Vaccines Completed 11/14/2009, 11/03, 12/22/2006, Additional history exists IPV Vaccines Completed 11/14/2009, 03/2007, 04/25/2006, Additional history exists MMR Vaccines Completed 06/25/2011, 12/22/2006 Varicella Vaccines Completed 06/25/2011, 11/22/2006 Hepatitis A Vaccines Completed 12/20/2017, 11/29/19 08 HPV Vaccines Completed 07/21/2018, 07/04, 09/19/2015 Meningococcal Vaccine Completed 07/29/2022, 017 Meningococcal B Vaccine Completed 02/14/2024, 12/21 Pneumococcal Vaccine: Pediatrics (0 to 5 Years) and At-Risk Patients (6 to 49) Years Aged Out No longer eligible based on patient's age to complete this topic RSV under 20 months Aged Out No longe r eligible based on patient's age to complete this topic Rotavirus Vaccines Aged Out No longer eligible based on patient's age to complete this topic Procedures Procedure Name Priority Date/Time Associated Diagnosis Comments CHLAMYDIA/N. GONORRHOEAE RNA, TMA, UROGENITAL Routine 05/07/2025 6:12 PM EDT Family planning Routine screening for STI (sexually transmitted infection) [place] REMOVAL NON-BIODEGRADABLE DRUG DELIVERY IMPLANT Routine 05/07/2025 6:07 PM EDT Family planning Routine screening for STI (sexually transmitted infection) Nexplanon removal PANORAMIC RADIOGRAPHIC IMAGE Routine 03/01/2024 11:30 AM EDT Impacted tooth from Last 3 Months or Most Recently Relevant to Health Maintenance Results * Chlamydia/N. Gonorrhoeae RNA, TMA, Vagina (05/07/2025 6:12 PM EDT) CT PCR NOT DETECTED Not Detect. [facility] Comment:A not detected test result does not exclude the possibilityof infection because test results can be affected byimproper specimen collection, concurrent antibiotic therapy,or the number of organisms in the specimen which may bebelow the sensitivity of the test. As with many diagnostictests, results from the Xpert CT/NG assay should beinterpreted in conjunction with other laboratory andclinical data available to the clinician.Xpert CT/NG performance has not been evaluated in patientsless than 14 years of age. The assay should not be used forthe evaluationof suspected sexual abuse or for other medico-legalindications. Additional testing is recommended in anycircumstance when false positive or false negative resultscould lead to adverse medical, social or psychologicalconsequences. NG PCR NOT DETECTED Not Detect. [facility] Comment:A not detected test result does not exclude the possibilityof infection because test results can be affected byimproper specimen collection, concurrent antibiotic therapy,or the number of organisms in the specimen which may bebelow the sensitivity of the test. As with many diagnostictests, results from the Xpert CT/NG assay should beinterpreted in conjunction with other laboratory andclinical data available to the clinician.Xpert CT/NG performance has not been evaluated in patientsless than 14 years of age. The assay should not be used forthe evaluationof suspected sexual abuse or for other medico-legalindications. Additional testing is recommended in anycircumstance when false positive or false negative resultscould lead to adverse medical, social or psychologicalconsequences. Swab Vaginal structure / Unknown 05/07/2025 6:12 PM EDT 05/08/2025 11:28 AM EDT Maribel Donaldson MD LAB MICROBIOLOGY - GENERAL ORDERABLES Final Result [facility] [address] [place] [phone] * [place] REMOVAL NON-BIODEGRADABLE DRUG DELIVERY IMPLANT (05/07/2025 6:07 PM EDT) Narrative Maribel Donaldson MD - 05/07/2025 6:07 PM EDT Maribel Donaldson MD 05/07/2025 6:19 PM Insertion/Removal of Contraceptive Capsule Date/Time: 05/07/2025 6:07 PM Performed by: Maribel Donaldson MD Authorized by: Maribel Donaldson MD Consent: Consent obtained: Verbal Consent given by: Patient Procedural risks and benefits discussed: Yes Patient questions answered: yes Patient agrees, verbalizes understanding, and wants to proceed: yes Instructions and paperwork completed: yes Indication: Indication: presence of non-biodegradable drug delivery implant Pre-procedure: Pre-procedure timeout performed: yes Prepped with comment: Betadine in sterile fashion Local anesthetic: Lidocaine without epinephrine Procedure: Procedure: Removal Small stab incision was made in arm: yes Left/right: Left Maribel Donaldson MD IN CLINIC/BEDSIDE ORDERABL ES Final Result from Last 3 Months Insurance [facility] [facility] ST[employer] CHILD Advance Directives Documents on File Type Date Recorded Patient Carpet Cleaner Expl anation Advance Directives and Living Will 05/30/2025 Health Care Proxy 05/29/25 Care Teams Drier Tender Naphthalene Relationship Specialty Start Date End Date Maribel Donaldson MD [address] [place] [phone] PCP - General Family Medicine 05/13/25
--- OUTSIDE RECORDS SUMMARY | 2025-07-03 16:34 | XMS_ITS | Encounter Summary ---
Author Organization [employer] Address [address] [facility] [address] [place] [address] Care Team Providers Care Membership Director Name Role Phone Maribel Donaldson MD Primary Care Provider [phone]- [phone] Reason for Visit * Reason Onset Date Comments insurance posting 03/01/2024 Encounter Details Date Type Department Care Team (Late Contact Info) Description 03/01/2024 Telephone [facility] [address] [place] [phone] Jessica Ramos DDS [address] [place] [phone] insurance posting Social History Tobacco Use Types [...] Encounters Date Type Department Care Team (Late Contact Info) Description 07/04/2025 9:45 AM EDT Office Visit [facility] [address] [place] [phone] Maribel Donaldson MD [address] [place] [phone] documented as of this encounter Visit Diagnoses Not on filedocumented in this encounter Care Teams Membership Director Relationship Specialty Start Date End Date Maribel Donaldson MD [address] [place] [phone] PCP - General Family Medicine 05/13/25 documented as of this encounter
--- OUTSIDE RECORDS SUMMARY | 2025-07-03 16:34 | XMS_ITS | Clinical Summary ---
Author Organization [facility] Address [address] [place] [address] Phone Care Team Providers Care Gutter Hanger Name Role Phone Geena Ravi MD Primary Care Provider [phone] Allergies Active Allergy Reactions Criticality Noted Date Comments Latex 02/21/2025 Other Reaction(s): Swelling of labia Medications sucralfate (CARAFATE) 1 gram tablet Take 1 tablet (1 g total) by mouth 4 (four) times a day. 120 each 04/30/2025 Active Active Problems Problem Noted Date Diagnosed Date Anterior epistaxis 12/20/2024 Jaw pain 02/14/2024 Eczema 08/03/2022 Bilateral temporomandibular joint pain 2 Overview (05/12/2025): Arthralgia of bilateral temporomandibular joint; Note: Date Diagnosed: 01/18/2022 1:49 PM (M26.623) Otalgia of both ears 01/18/2022 Overview (05/12/2025): Otalgia, bilateral; Note: Date Diagnosed: 01/18/2022 1:49 PM (H92.03) Referred otalgia 01/18/2022 Overview (05/12/2025): Otalgia secondary to TMJ; Note: Date Diagnosed: 01/18/2022 1:48 PM (388.72) Abnormal auditory perception 03/14/2020 Overview (05/12/2025): Other abnormal auditory perceptions, bilateral; Note: Date Diagnosed: 03/14/2020 8:45 AM (H93.293) Dizziness and giddiness 03/14/2020 Overview (05/12/2025): Dizziness and giddiness; Note: Date Diagnosed: 03/14/2020 8:45 AM (R42) Headache 03/14/2020 Overview (05/12/2025): Headache; Note: Date Diagnosed: 03/14/2020 8:45 AM (R51) Palpitations 03/14/2020 Overview (05/12/2025): Palpitations; Note: Date Diagnosed: 03/14/2020 8:45 AM (R00.2) Encounters Date Type Department Care Team Description 04/30/2025 7:15 PM EDT - 04/30/2025 9:18 PM EDT Emergency [facility] [address] [place] [phone] Franco Clark MD Nausea and vomiting, unspecified vomiting type (Primary Dx); Chronic gastritis without bleeding, unspecified gastritis type Discharge Disposition: Home or Self Care 04/27/2025 11:45 PM EDT - 04/28/2025 2:58 AM EDT [facility] [address] [place] [phone] Micheline Iqbal MD Acute nonintractable headache, unspecified headache type (Primary Dx) Discharge Disposition: Home or Self Care from Last 3 Months Immunizations Immunization Administration Dates Next Due DTaP (Infanrix) 6wks to less than 7yo ,03/13/2008,07/26/2006,04/25,01/07/2006 HPV 9-valent (Gardisil) 9yo to less than 46yo 07/21/2018,07/30/2016,09/19/2015 Hep B, Unspecified 2005 Hepatitis A Pediatric (Havri x; Vaqta) 12mo to less than 19yo 12/20/2017,11/29/2007 Hepatitis B Pediatric (Enger ix B; Recombivax HB) to less than 20 yo 07/26/2006,2005,2005 HiB 11/14/2009, 7,07/26/2006,04/25,01/07/2006 IPV Inactivated polio (Ipol) 6wks and older 11/14/2009,06/08/2007,04/25/2006,01/07 Influenza Quadrivalent, 0.5m l, preservative free (Fluarix; FluLaval; Fluzone) ages 6mo and older (Afluria) 3yo and older 07/29/2022 Influenza Quadrivalent, with preservative (Fluzone; Afluria) 6mo and older 07/21/2021,10/16/2020,07/12/2019,10/17,07/25/2012 Influenza trivalent, 0.5mL, preservative free (Fluarix; FluLaval; Fluzone) ages 6mo and older (Afluria) 3 years and older 06/13/2024 MMR, measles mumps and rubel la Live (Priorix; M-M-R II) 12mo and older 06/25/2011,12/22/2006 Meningococcal B, Recombinant (Trumenba) 16yo to less than 24yo 02/14/2024,12/21/2022 Meningococcal Conjugate (Men veo) MenACWY 11yo to less than 19 yo 07/29/2022 Meningococcal MCV4P 07/19/2017 Tdap Tetanus diptheria acell ular pertussis (Boostrix; Adacel) 7yo and older 12/20/2017 Varicella live (Varivax) 12m o and older 06/25/2011,11/22/2006 Social History Tobacco Use Types Packs/Day Years Used Date Smoking Tobacco: Never Assessed Comments Unknown Sex and Gender Information Value Date Recorded Sex Assigned at Not on file Legal Sex Female 7:05 AM EST Gender Identity Not on file Sexual Orientation Not on file Obstetrics History Growth Chart Information Age Height Weight [id number] th Percentile BMI Percentile Head Circum Head Circum Percentile Date 19 years 157.5 cm (5' 2 ) 68 kg (150 lb) 88.67%* 2024 19 years 157.5 cm (5' 2 ) 68 kg (150 lb) 88.68%* 2024 19 years 157.5 cm (5' 2 ) 63.5 kg (140 lb) 82.54%* 2024 * [facility] (Girls, 2-20 Years) Last Filed Vital [...] 09/05/2022 Social Influencers of Health Screening 09/05/2022 Depression Screening 10/03/2024 Annual Well Child Visit (3-21 years old) 02/13/2025 02/14/2024, 12/21/2022 COVID-19 Vaccine ( season) 2025 03/23/2021, 02/27/2021 Influenza Vaccine (#1) 2025 , 07/29/2022, 07/21/2021, Additional history exists DTaP,Tdap,and Td Vaccines (7 - Td or Tdap) 12/21/2027 12/20/2017, 11/14/2009, 03/13/2008, Additional history exists RSV Immunization Adult Patients (1 - 1-dose 75+ series) 2080 Hepatitis B Vaccines Completed 07/26/2006, 2005, 2005, Additional history exists HIB Vaccines Completed 11/14/2009, 12/02, 07/26/2006, Additional history exists IPV Vaccines Completed 11/14/2009, 0 03/2007, 04/25/2006, Additional history exists MMR Vaccines [...] Dasilva MD on 04/30/2025 20:23:04 us Franco Clark MD IMG US PROCEDURES Final Result * POC , urine manually resulted (04/30/2025 7:14 PM EDT) Pathologist [facility] HCG, Ur POC Negative Negative POC hCG Int QC Pass? Yes Yes Urine Urine specimen obtained by clean catch procedure / Unknown 04/30/2025 7:14 PM EDT us Jasvir Mitchell MD POINT OF CARE TEST ENTER/ED IT ORDERABLES Final Result * (ABNORMAL) CBC auto differential (04/30/2025 7:04 PM EDT) Only the most recent of2 resultswithin the time period is included. [facility] WBC 9.2 4.8 - 10.8 K/mcL LAB HEMETOLOGY METHOD 04/30/2025 7:25 PM EDT [facility] RBC 5.00(H) 3.80 - 4.80 M/mcL LAB HEMETOLOGY METHOD 04/30/2025 7:25 PM EDT [facility] Hemoglobin 12.6 11.5 - 16.0 g/dL LAB HEMETOLOGY METHOD 04/30/2025 7:25 PM EDT [facility] Hematocrit 39.8 35.0 - 47.0 % LAB HEMETOLOGY METHOD 04/30/2025 7:25 PM EDT [facility] MCV 80.1 79.0 - 98.0 FL LAB HEMETOLOGY METHOD 04/30/2025 7:25 PM EDT [facility] MCH 25.4(L) 27.0 - 32.0 pcg LAB HEMETOLOGY METHOD 04/30/2025 7:25 PM EDT [facility] MCHC 31.7(L) 32.0 - 37.0 g/dL LAB HEMETOLOGY METHOD [facility] RDW 15.4(H) 11.0 - 15.0 % LAB HEMETOLOGY METHOD 04/30/2025 7:25 PM EDT [facility] Platelets 370 130 - 400 K/mcL LAB HEMETOLOGY METHOD 04/30[facility]2025 7[facility] MPV 9.7 7.0 - 11.0 FL LAB HEMETOLOGY METHOD 04/30/2025 7:[facility] NRBC 0.0 <1.0 % LAB HEMETOLOGY METHOD 04/30/2025 7:25 PM EDT [facility] NRBC Absolute 0.00 <0.10 K/mcL LAB HEMETOLOGY METHOD 04/30/2025 7:[facility] Neutrophils Relative 67.7 % LAB HEMETOLOGY METHOD 04/30/2025 7:[facility] Lymphocytes Relative 19.3 % LAB HEMETOLOGY METHOD 04/30/2025 7:25 PM EDT [facility] Monocytes Relative 9.9 % LAB HEMETOLOGY METHOD 04/30/2025 7:[facility] Eosinophils Relative 2.3 % LAB HEMETOLOGY METHOD 04/30/2025 7:[facility] Basophils Relative 0.5 % LAB HEMETOLOGY METHOD 04/30/2025 7:[facility] Immature Granulocytes Relative 0.3 % LAB HEMETOLOGY METHOD 04/30/2025 7:25 PM EDT [facility] Neutrophils Absolute 6.22 1.50 - 7.00 K/mcL LAB HEMETOLOGY METHOD 04/30/2025 7:25 PM EDT [facility] Lymphocytes Absolute 1.77 1.00 - 5.00 K/mcL LAB HEMETOLOGY METHOD 04/30/2025 7:25 PM EDT [facility] Monocytes Absolute 0.91 0.20 - 1.00 K/mcL LAB HEMETOLOGY METHOD 04/30/2025 7:25 PM EDT [facility] Eosinophils Absolute 0.21 0.00 - 0.50 K/[facility] LAB HEMETOLOGY METHOD 04/30/2025 7:25 PM EDT [facility] Basophils Absolute 0.05 0.00 - 0.20 K/mcL LAB HEMETOLOGY METHOD 04/30/2025 7:25 PM EDT [facility] Immature Granulocytes Absolute 0.03 0.00 - 0.03 K/mcL LAB HEMETOLOGY METHOD 04/30/2025 7:25 PM EDT [facility] Blood Venous blood specimen / Unknown Venipuncture / Unknown 04/30/2025 7:04 PM EDT 04/30/2025 7:20 PM EDT us Jasvir Mitchell MD LAB BLOOD ORDERABLES Final Result [facility] [address] [place] [address], * Lipase (04/30/2025 7:04 PM EDT) Lipase 33 13 - 75 unit/L LAB CHEMISTRY METHOD 04/30/2025 7:45 PM EDT [facility] Blood Venous blood specimen / Unknown Venipuncture / Unknown 04/30/2025 7:04 PM EDT 04/30/2025 7:20 PM EDT us Jasvir Mitchell MD LAB BLOOD ORDERABLES Final Result [facility] [address] [place] [address], * Comprehensive metabolic panel (04/30/2025 7:04 PM EDT) Only the most recent of2 resultswithin the time period is included. Sodium 139 133 - 145 mmol/L LAB CHEMISTRY METHOD 04/30/2025 7:[address] [facility] Potassium 3.9 3.5 - 5.5 mmol/L LAB CHEMISTRY METHOD 04/30/2025 7:[address] [facility] Chloride 104 96 - 110 mmol/L LAB CHEMISTRY METHOD 04/30/2025 7:[address] [facility] CO2 26 21 - 32 mmol/L LAB CHEMISTRY METHOD 04/30/2025 7:[address] [facility] Anion Gap 9 3 - 11 LAB CHEMISTRY METHOD 04/30/2025 7:[address] [facility] Glucose 83 70 - 100 mg/dL LAB CHEMISTRY METHOD 04/30/2025 7:[address] [facility] BUN 11 5 - 25 mg/dL LAB CHEMISTRY METHOD 04/30/2025 7:[address] [facility] Creatinine 0.97 0.50 - 1.10 mg/dL LAB CHEMISTRY METHOD 04/30/2025 7:[address] [facility] eGFR 87 >=60 mL/min/1. 73m2 LAB CHEMISTRY METHOD 04/30/2025 7:[address] [facility] Comment:Calculation based on the Chronic Kidney Disease Epidemiology Collaboration (CKD-EPI) equation refit without adjustment for race. BUN/Creatinine Ratio 11.3 LAB CHEMISTRY METHOD 04/30/2025 7:[address] [facility] Calcium 10.0 8.5 - 10.5 mg/dL LAB CHEMISTRY METHOD 04/30/2025 7:47 PM EDT [facility] AST (SGOT) 21 10 - 42 unit/L LAB CHEMISTRY METHOD 04/30/2025 7:47 PM T [facility] ALT (SGPT) 35 10 - 60 unit/L LAB CHEMISTRY METHOD 04/30/2025 7:47 PM EDT [facility] Alkaline Phosphatase 99 42 - 121 unit/L LAB CHEMISTRY METHOD 04/30/2025 7:47 PM EDT [facility] Total Protein 7.7 6.0 - 8.0 g/dL LAB CHEMISTRY METHOD 04/30/2025 7:[address] [facility] Albumin 4.3 3.2 - 5.0 g/dL LAB CHEMISTRY METHOD 04/30/2025 7:[address] [facility] Total Bilirubin 0.3 0.0 - 1.4 mg/dL LAB CHEMISTRY METHOD 04/30/2025 7:47 PM T [facility] Blood Venous blood specimen / Unknown Venipuncture / Unknown 04/30/2025 7:04 PM EDT 04/30/2025 7:20 PM EDT us Jasvir Mitchell MD LAB BLOOD ORDERABLES Final Result [facility] [address] [place] [address], * (ABNORMAL) Urinalysis with reflex microscopic and culture (04/30/2025 6:58 PM EDT) Only the most recent of2 resultswithin the time period is included. Specific [place] Urine 1.014 1.003 - 1.030 LAB URINALYSIS - AUTOMATED METHOD 04/30/2025 7:28 PM EDT [facility] pH, Urine 6.0 5.0 - 8.0 pH LAB URINALYSIS - AUTOMATED METHOD 04/30/2025 7:[address] [facility] Leukocytes, Urine Negative Negative LAB URINALYSIS - AUTOMATED METHOD 04/30/2025 7:[address] [facility] Nitrite, Urine Negative Negative LAB URINALYSIS - AUTOMATED METHOD 04/30/2025 7:[address] [facility] Protein, Urine 30(A) <=Trace mg/dL LAB URINALYSIS - AUTOMATED METHOD 04/30/2025 7:[address] [facility] Glucose, Urine Negative Negative mg/dL LAB URINALYSIS - AUTOMATED METHOD 04/30/2025 7:[address] [facility] Ketones, Urine Negative Negative mg/dL LAB URINALYSIS - AUTOMATED METHOD 04/30/2025 7:[address] [facility] Urobilinogen , Urine 0.2 0.2 - 1.0 mg/dL LAB URINALYSIS - AUTOMATED METHOD 04/30/2025 7:[address] [facility] Bilirubin, Urine Negative Negative LAB URINALYSIS - AUTOMATED METHOD 04/30/2025 7:[address] [facility] Blood, Urine Moderate(A) Negative LAB URINALYSIS - AUTOMATED METHOD 04/30/2025 7:[address] [facility] RBC, Urine 3.7 0 - 4 /HPF LAB URINALYSIS - AUTOMATED METHOD 04/30/2025 7:[address] [facility] WBC, Urine 0.8 0 - 4 /HPF LAB URINALYSIS - AUTOMATED METHOD 04/30/2025 7:[address] [facility] Squamous Epithelial, Urine 36 0 - 60 /LPF LAB URINALYSIS - AUTOMATED METHOD 04/30/2025 7:[address] [facility] Bacteria, Urine Negative Negative /HPF LAB URINALYSIS - AUTOMATED METHOD 04/30/2025 7:[address] [facility] Hyaline Casts, Urine 0.4 0 - 3 /LPF LAB URINALYSIS - AUTOMATED METHOD 04/30/2025 7:28 PM EDT [facility] Urine Urine specimen obtained by clean catch procedure / Unknown Non-blood Collection / Unknown 04/30/2025 6:58 PM EDT 04/30/2025 7:20 PM EDT Jasvir Mitchell MD LAB URINE ORDERABLES Final Result Performing Organization Address [facility]/ZIP Co de Phone Number [facility] [address] [place] [address], [place] [phone] * Soriano urine culture tube (04/30/2025 6:58 PM EDT) Only the most recent of2 resultswithin the time period is included. Extra Tube Hold for add-ons. 04/30/2025 9:01 PM EDT [facility] Comment:Auto resulted. Urine Urine specimen obtained by clean catch procedure / Unknown Non-blood Collection / Unknown 04/30/2025 6:58 PM EDT 04/30/2025 7:20 PM EDT Jasvir Mitchell MD LAB URINE ORDERABLES Final Result Performing Organization Address [facility] Co de Phone Number [facility] [address] [place] [address], [place] [phone] * CT Head wo Contrast (04/28/2025 1:28 [...] fracture. Unremarkable soft tissues. Procedure Note Patricio Masr MD - 04/28/2025 INDICATION: Cerebral hemorrhage suspected [...] Qual Negative Negative 04/28/2025 1:10 AM EDT [facility] Blood Venous blood specimen / Unknown Venipuncture / Unknown 04/28/2025 12:16 AM EDT 04/28/2025 12:47 AM EDT Micheline Iqbal MD LAB BLOOD ORDERABLES Final Res ult [facility] [address] [place] [address], * Magnesium (04/28/2025 12:16 AM EDT) Magnesium 2.0 1.9 - 2.6 mg/dL LAB CHEMISTRY METHOD 04/28/2025 1:16 AM EDT [facility] Blood Venous blood specimen / Unknown Venipuncture / Unknown 04/28/2025 12:16 AM EDT 04/28/2025 12:47 AM EDT us Micheline Iqbal MD LAB BLOOD ORDERABLES Final Res ult [facility] [address] [place] [address], from Last 3 Months Insurance MEDICAID - [place] Care Teams Gutter Hanger Relationship Specialty Start Date End Date Geena Ravi MD [address] [place] [address] PCP - General Pediatrics 04/27/25
--- OUTSIDE RECORDS SUMMARY | 2025-07-03 16:34 | XMS_ITS | Clinical Summary ---
Author Organization [facility] Address [address] [place] [address] Phone Care Team Providers Care Gastroenterology Teacher Name Role Phone Geena Ravi MD Primary Care Provider [phone] Allergies No known active allergies Medications Etonogestrel (Nexplanon) 68 MG implantIndication s:Encounter for initial prescription of Nexplanon Inject 1 Units under the skin continuousl y. 1 each 12/07/2024 Active Active Problems Problem Noted Date Diagnosed Date Jaw pain 02/14/2024 Eczema 08/03/2022 Assessment & Plan (02/14/2024 9:16 AM EDT): Controlled at this time. No ointments/lotions at this time. Resolved Problems Problem Noted Date Diagnosed Date Resolved Date Weight loss, unintentional 02/13/2024 0 02/14/2024 Overview (02/13/2024): Weight loss: weight loss of 13lbs in 2yrs During schl yr, intake of 1meal/day+/1snacks. Reports would like to gain weight as she feels she is too skinny, Labs ordered 03/2023. Suspect generally poor intake contributing to losses over last 2 yrs. Needs to have set schedule of intake and attempt 3 meals/day. Prealbumin, CBCd, Celianc screen, Vit D essentially nl (mild dec hgb). Prior labs noted normal TFTs. Denies GI distress. Can consider Nutrtion referral at recheck if ongoing decline Assessment & Plan (02/14/2024 9:17 AM EDT): Great weight gain since 2022. Weight 02/14/24 : 131 lb 12.8 oz (59.8 kg) (63%, Z= 0.33)* 03/29/23 : 119 lb (54 kg) (43%, Z= -0.19)* 02/26/23 : 119 lb 12.8 oz (54.3 kg) (45%, Z= -0.13)* * Growth percentiles are based on CDC (Girls, 2-20 Years) data.] Vitamin D deficiency 05/17/2023 024 Overview (05/17/2023): Dx'd 01/2023- started on supplementation Assessment & Plan (02/14/2024 9:17 AM EDT): No supplementation at this time. Last vitamin D in 2022 was within normal range. Encounters Date Type Department Care Team Description 05/07/2025 Telephone [facility] - [address] [address] Bea Brunner LPN nexplanon removal concern 05/02/2025 Telephone [facility] - [address] [place] [address] Myranda Lemus LPN ED Visits 04/28/2025 Telephone [facility] - [address] [phone] Geena Ravi MD Discharge Follow-Up - ED 04/26/2025 8:13 AM EDT - 04/26/2025 12:46 PM EDT Emergency [facility] - Patient Ping from Last 3 Months Immunizations Immunization Administration Dates Next Due DTaP 11/14/2009, 8,07/26/2006,04/25,01/07/2006 HPV Vaccine 9 Valent 07/21/2018,07/30/2016,09/19 Hep A, ped/adol 12/20/2017,11/29/2007 Hep B 2005 Hep B, ped/adol 07/26/2006,2005,2005 HiB 11/14/2009, 7,07/26/2006,04/25,01/07/2006 IPV 11/14/2009, 7,04/25/2006,01/07 Influenza, injectable, quadrivalent 07/03,10/16/2020,07/12/2019,10/17,07/25/2012 Influenza, injectable, quadr ivalent, preservative free 07/29/2022 Influenza, injectable, triva lent, preservative free 06/13/2024 MMR 06/25/2011,12/22/2006 Meningococcal B Trumenba 02/14/2024,12/21/2022 Meningococcal Conj (Menactra) MCV4P 07/19/2017 Meningococcal Conj (Menveo) MCV4O 07/29/2022 Tdap 12/20/2017 Varicella 06/25/2011,11/22/2006 Social History Tobacco [...] Orientation Straight 02/14/2024 9: 20 AM EDT Last Filed Vital Signs Vital Sign Reading Time Taken Comments Blood Pressure 112/64 12/21/2024 9:19 AM EDT Pulse 74 12/21/2024 9:19 AM EDT Temperature 36.6 C (97.8 F) 12/21/2024 9:19 AM EDT Respiratory Rate 18 12/21/2024 9:19 AM EDT Oxygen Saturation 99% 12/21/2024 9:19 AM EDT Inhaled Oxygen Concentration - - Weight 60.3 kg (133 lb) 12/21/2024 9:19 AM EDT Height 159.5 cm (5' 2.8 ) 12/21/2024 9:19 AM EDT Body Mass Index 23.71 12/21/2024 9:19 AM EDT Plan of Treatment Health Maintenance Due Date Last Done Comments Hepatitis B Vaccines (3 of 3 - 3-dose series) 09/20/2006 07/26/2006, 2005, 2005, Additional history exists HIV Screening 2020 Hepatitis C Screening 2023 Influenza Vaccines (#1) 2025 06/13/20 24, 07/29/2022, 07/21/2021, Additional history exists COVID-19 Vaccine (3 - season) 2025 03/23/2021, 02/27/2021 DTaP,Tdap,and Td Vaccines (7 - Td or Tdap) 12/21/2027 12/20/2017, 11/14/2009, 03/13/2008, Additional history exists HIB Vaccines Completed 11/14/2009, 12/02, 07/26/2006, Additional history exists IPV Vaccines Completed 11/14/2009, 03/2007, 04/25/2006, Additional history exists MMR Vaccines Completed 06/25/2011, 12/22/2006 Varicella Vaccines Completed 06/25/2011, 11/22/2006 Hepatitis A Vaccines Completed 12/20/2017, 11/29/19 08 HPV Vaccines Completed 07/21/2018, 07/04, 09/19/2015 Meningococcal Vaccine Completed 07/29/2022, 017 Men B Vaccine Completed 02/14/2024, 12/21/2022 Chlamydia and Gonorrhea Screening Completed 12/05/2024, 03/26/2024, 02/14/2024 Pneumococcal Vaccine Aged Out No long er eligible based on patient's age to complete this topic Procedures * Due to [place] Impulsonic law, this organization might not be sharing sensitive test results. Procedure Name Priority Date/Time Associated Diagnosis Comments CHLAMYDIA AND GONORRHEA, AMPLIFIED Routine 12/05/2024 4:23 PM EST Encounter for initial prescription of Nexplanon from Last 3 Months or Most Recently Relevant to Health Maintenance Results * Due to [place] Impul[employer]ic law, this organization might not be sharing sensitive test results. * Chlamydia and Gonorrhoea, Amplified (12/05/2024 4:23 PM EST) C trach TUNG Negative Negative [facility] N gonorrhoeae TUNG Negative Negative [facility] Urine (Urine) 12/05/2024 4:2 3 PM EST 12/05/2024 Comment:Urine URINE Narrative [facility] - 12/06/2024 4:06 PM EST Performed at: 01 - [facility] [address], [address], [place] [id number] Insurance Special Agent: Remberto Waters MD, Phone: [phone] us Rob [facility] MICROBIOLOGY - GENERAL ORD ERABLES Final Result [facility] [address] [place] [address] from Last 3 Months or Most Recently Relevant to Health Maintenance Care Teams Gastroenterology Teacher Relationship Specialty Start Date End Date Geena Ravi MD [address] [place] [address] ERLIN Merino [address] PCP - General Pediatrics 07/19/22
[2025-07-03 18:06] LABS: MANUAL DIFF FLAG NO
[2025-07-03 18:08] LABS: Hematocrit 37.8 % (37.0-47.0); Hemoglobin 12.1 g/dl (12.0-16.0); Imm Gran Abs Auto 0.02 X10*3/uL (0.00-0.03); Imm Gran Pct Auto 0.2 % (0.0-0.4); Lymphocytes Absolute Auto 1.9 X10*3/uL (1.2-4.9); Mean Corpuscular HGB Conc 32.0 g/dl (31.0-35.0); Mean Corpuscular Hemoglobin 26.4 pg (27.0-33.0); Mean Corpuscular Volume 82.4 fL (80.0-98.0); NRBC Abs Auto 0.000 X10*3/uL (0.0-0.012); NRBC Pct Auto 0.0 /100WBC (0.0-0.2); Platelet Count 400 X10*3/uL (160-400); Red Blood Count 4.59 X10*6/uL (4.20-5.50); White Blood Count 8.3 X10*3/uL (4.8-10.8)
[2025-07-03 18:27] LABS: Alanine Aminotransferase 42 U/L (0-31); Albumin Level 4.6 g/dL (3.5-5.0); Alkaline Phosphatase 101 U/L (39-117); Anion Gap 11 (12-20); Aspartate Amino Transferase 46 U/L (5-31); Blood Urea Nitrogen 13 mg/dL (9-16); Calcium 9.3 mg/dL (8.4-10.2); Carbon Dioxide 28 mmol/L (22-29); Chloride 107 mmol/L (96-108); Cholesterol 156 mg/dL (<200); Estimated Glomerular Filt Rate > 60; HDL Cholesterol 50 mg/dL (>40); Magnesium 1.9 mg/dL (1.6-2.6); Potassium 4.0 mmol/L (3.3-5.1); Sodium 142 mmol/L (135-145); Total Protein 7.7 g/dL (6.5-8.0); Triglycerides 76 mg/dL (<150)
[2025-07-04 04:28] LABS: Syphilis Screen Nonreactive (Nonreactive)
[2025-07-04 05:15] LABS: HIV Num 1 0.09 S/CO (0.00-0.99); ~HepC Num1 0.18 S/CO (0.00-0.79); ~Hepatitis C Antibody Nonreactive (Nonreactive)
== END 2025-07-03 16:05 | disposition home or self-care (01) ==
LOC: HO.HHCL 16:04
PROVIDERS: PCP Family Medicine; Visit Provider Family Medicine
DX: Z13.220 Encounter for screening for lipoid disorders (principal); Z87.39 Personal history of other diseases of the musculoskeletal system and connective tissue; Z11.8 Encounter for screening for other infectious and parasitic diseases; Z20.2 Contact with and (suspected) exposure to infections with a predominantly sexual mode of transmission; Z11.59 Encounter for screening for other viral diseases; Z11.4 Encounter for screening for human immunodeficiency virus [HIV]; I10 Essential (primary) hypertension; N92.6 Irregular menstruation, unspecified
CPT/HCPCS: 36415; 80048; 80061; 80076; 82306; 83735; 84443; 85025; 86780; 86803; 87389

== ENCOUNTER 2025-07-04 18:22 | Outpatient (REF) | payer OTHER, SELFPAY ==
--- OUTSIDE RECORDS SUMMARY | 2025-07-04 09:45 | XMS_ITS | Encounter Summary ---
Author Organization [employer] Address [address] [place] [address] Care Team Providers Care Coal Crusher Operator Name Role Phone Maribel Donaldson MD Primary Care Provider [phone] Reason for Visit * Reason Comments Follow-up Encounter Details Date Type Department Care Team ([facility] st Contact Info) Description 07/04/2025 9:45 AM EDT Office Visit [facility] [address] [place], [place] [phone] Maribel Donaldson MD [address], [place] [phone] Cystic acne (Primary Dx); Family planning; Encounter for immunization; Vitamin D deficiency; Transaminitis Social History Tobacco Use Types Packs/Day Years Used Date Smoking Tobacco: Never Passive Smoke Exposure: Never Smokeless Tobacco: Never Tobacco Cessation:Counseling Given: [...] Date Recorded No desire to become (finding) 1 Sex and Gender Information Value Date Recorded Sex Assigned at Female 03/01/2024 9:55 AM EDT Legal Sex Female 9:52 AM EDT Gender Identity Female 03/01/2024 9:55 AM EDT Sexual Orientation Choose not to disclose 2023 9:55 AM EDT documented as of this encounter Last Filed Vital Signs Vital Sign Reading Time Taken Comments Blood Pressure 115/72 07/04/2025 9:41 AM EDT Pulse 80 07/04/2025 9:41 AM EDT Temperature 37.1 C (98.7 F) 07/04/2025 9:41 AM EDT Respiratory Rate 17 07/04/2025 9:41 AM EDT Oxygen Saturation 98% 07/04/2025 9:41 AM EDT Inhaled Oxygen Concentration - - Weight 70.3 kg (155 lb) 07/04/2025 9:41 AM EDT Height 157.5 cm (5' 2 ) 07/04/2025 9:41 AM EDT Body Mass Index 28.35 07/04/2025 9:41 AM EDT documented in this encounter Progress Notes * Maribel Donaldson MD - 07/04/2025 9:45 AM EDT Lucas Johnson is a 19 y.o. female who presents to the office today to discuss acne Here to discuss acne. Has history of migraine with aura so OCPs contraindicated. Has tried doxycycline for > 1 year but it was causing GI upset. Tried minocycline but side effects were too strong.Started using triamcinolone for her eczema which has helped discussed not good for mcfp use. At visit 05/2025 she stated she was interested in IUD for abnormmal menstural bleeding and contraception. Does not want to coninue Slynd due to reported heavy daily bleeding. Has hx of migraine with aura. Had issues with prolonged heavy bleeding with Nextplanon (removed 05/07/25). LMP 06/22/25. Last unprotected intercourse 3 days ago. Social History Tobacco: denied Drugs: none Alcohol: No Sexuality: One male partner Suicide/Depression: The patient denies any present symptoms of depression or anxiety. Review of Systems Current Medications[1] Allergies[2] Medical History[3] Surgical History[4] Family History[5] Objective Visit Vitals BP 115/72 (BP Location: Left arm, Patient Position: Sitting, BP Cuff Size: Adult) Pulse 80 Temp 98.7 ??F (37.1 ??C) (Oral) Resp 17 Ht 5' 2 (1.575 m) Wt 155 lb (70.3 kg) SpO2 98% BMI 28.35 kg/m?? Smoking Status Never BSA 1.75 m?? Physical Exam Musculoskeletal: Comments: Right thoracic and left lumbar curve with no significant rib displacement Skin: Comments: Papules on cheeks and chin L>R. NO cystic lesions at this time. 19 y.o. female physical exam. Assessment & Plan Cystic acne Has seen our Derm, canceled outside Derm and declines currently as acne doing well. Side effects with doxycycline, minocycline, has migraine with aura and did not tolerate OCPs. Discussed Retin A topica or benzoyl peroxide. She would like to try benzoyl peroxide. Orders: benzoyl peroxide 5 % gel; Apply topically 2 times daily. Family planning Go woman. Desires hormonal IUD for control of menses and prevention. Last unprotected sex3 days ago. -Check HCG -plan B given (07/04/25) -return 2 weeks for HCG test -apt given for IUD (check GC, Chl today) -advise no unprotected intercourse until IUD placed. She agrees with plan. Orders: Fluoride Varnish Application- Pediatrics levonorgestrel (Plan B) 1.5 MG tablet; Take 0.5 tablets (0.75 mg) by mouth every 12 (twelve) hours for 1 day. Chlamydia/N. Gonorrhoeae RNA, TMA, Vagina POCT Urine Encounter for immunization Orders: FLU VACCINE TRIVALENT [id number] (Fluarix) 19 yrs + Vitamin D deficiency Lab Results Component Value Date [id number] 26.6 (L) 07/03/2025 Orders: cholecalciferol (Vitamin D-3) 50 MCG (1999 UT) capsule; Take 1 capsule (50 mcg) by mouth Once per day. Transaminitis Denies hepatotoxic agents. Recheck labs below in 1 month. Orders: Hepatitis Panel, General; Future Ferritin; Future ADAL Screen,IFA, with Reflex to Titer and Pattern; Future Hepatic Function Panel; Future Follow up in about 1 year (around 07/04/2026) for phsical. [1] Current Outpatient Medications: benzoyl peroxide 5 % gel, Apply topically 2 times daily., Disp: 60 g, Rfl: 2 cholecalciferol (Vitamin D-3) 50 MCG (1999 UT) capsule, Take 1 capsule (50 mcg) by mouth Once per day., Disp: 90 capsule, Rfl: 3 levonorgestrel (Plan B) 1.5 MG tablet, Take 0.5 tablets (0.75 mg) by mouth every 12 (twelve) hours for 1 day., Disp: 1 tablet, Rfl: 0 [2] Allergies Allergen Reactions Latex Swelling Other Reaction(s): Swelling of labia [3] History reviewed. No pertinent past medical history. [4] Past Surgical History: Procedure Laterality Date WISDOM TOOTH EXTRACTION [5] Family History Family history unknown: Yes * Liz Ulloa MA - 07/04/2025 9:45 AM EDTAssociated Order(s): Fluoride Varnish Application- Pediatrics Post-Procedure Diagnose(s): Family planning Patient ID: Alex Flor is a 19 y.o. female. Fluoride Varnish Application- Pediatrics Date/Time: 07/04/2025 9:42 AM Performed by: Maribel Donaldson MD Authorized by: Maribel Donaldson MD Procedure Documentation: Child positioned for varnish application: Yes Plaques and food debris removed from teeth with gauze: Yes Teeth were dried with gauze: Yes 5% Sodium Fluoride Varnish was applied to upper and bottom teeth, covering both outter and inner portion: Yes Dose of 5% Sodium Fluoride Varnish used?: 0.4 mL documented in this encounter Miscellaneous Notes * Assessment & Plan Note - Maribel Donaldson MD - 07/04/2025 9:45 AM EDT Associated Problem(s): Family planning Go woman. Desires hormonal IUD for control of menses and prevention. Last unprotected sex3 days ago. -Check HCG -plan B given (07/04/25) -return 2 weeks for HCG test -apt given for IUD (check GC, Chl today) -advise no unprotected intercourse until IUD placed. She agrees with plan. Orders: Fluoride Varnish Application- Pediatrics levonorgestrel (Plan B) 1.5 MG tablet; Take 0.5 tablets (0.75 mg) by mouth every 12 (twelve) hours for 1 day. Chlamydia/N. Gonorrhoeae RNA, TMA, Vagina POCT Urine documented in this encounter Plan of Treatment Upcoming Encounters Date Type Department Care Team (Late st Contact Info) Description 07/18/2025 1:15 PM EDT Procedure Visit [facility] [address] [place] [address] Rosina Henley CNM [address] [place] [address] Scheduled Orders Name Type Priority Associated Diagnoses Orde r Schedule Chlamydia/N. Gonorrhoeae RNA, TMA, Vagina Microbiology Routine Family planning Ordered: 07/04/2025 Hepatitis Panel, General Lab Routine Transaminitis Expected: 07/04/2025, Expires: 07/04/2026 Ferritin Lab Routine Transaminitis Expected: 07/04/2025, Expires: 07/04/2026 ADAL Screen,IFA, with Reflex to Titer and Pattern Lab Routine Transaminitis Expected: 07/04/2025 (Approximate), Expires: 07/04/2026 Hepatic Function Panel Lab Routine Transaminitis Expected: 07/04/2025 (Approximate), Expires: 07/04/2026 documented as of this encounter Procedures Procedure Name Priority Date/Time Associated Diagnosis Comments POCT , URINE Routine 07/04/2025 10:31 AM EDT Family planning CO APPLICATION TOPICAL FLUORIDE VARNISH BY [facility]/QHP Routine 07/04/2025 9:42 AM EDT Family planning documented in this encounter Results * POCT Urine (07/04/2025 10:31 AM EDT) Preg Test, Ur Negative Negative, Indeterminate, None Detected, Invalid, Specimen unsatisfactory for evaluation, Weakly Positive, 2+ QC Media Lot # [id number] Lot# Expiration Date [id number] QC TEST [id number] Urine 07/04/2025 10:3 1 AM EDT Maribel Donaldson MD POINT OF CARE TEST ENTER/E DIT ORDERABLES Final Result * CO APPLICATION TOPICAL FLUORIDE VARNISH BY [facility]/Q (07/04/2025 9:42 AM EDT) Narrative Liz Ulloa MA - 07/04/2025 9:42 AM EDT Liz Ulloa MA 07/04/2025 11:18 AM Fluoride Varnish Application- Pediatrics Date/Time: 07/04/2025 9:42 AM Performed by: Maribel Donaldson MD Authorized by: Maribel Donaldson MD Procedure Documentation: Child positioned for varnish application: Yes Plaques and food debris removed from teeth with gauze: Yes Teeth were dried with gauze: Yes 5% Sodium Fluoride Varnish was applied to upper and bottom teeth, covering both outter and inner portion: Yes Dose of 5% Sodium Fluoride Varnish used?: 0.4 mL Maribel Donaldson MD IN CLINIC/BEDSIDE ORDERABL ES Final Result documented in this encounter Visit Diagnoses Diagnosis Cystic acne- Primary Other acne Family planning Other general counseling and advice for contraceptive management Encounter for immunization Vitamin D deficiency Transaminitis Nonspecific elevation of levels of transaminase or lactic acid dehydrogenase (LDH) documented in this encounter Additional Health Concerns Assessment Noted Time PHQ-9 Depression Total Score: 4 05/29/20 12:06 PM EDT documented as of this encounter Care Teams Coal Crusher Operator Relationship Specialty Start Date End Date Maribel Donaldson MD [address] [place] [address] PCP - General Family Medicine 05/13/25 documented as of this encounter
--- OUTSIDE RECORDS SUMMARY | 2025-07-04 18:25 | XMS_ITS | Encounter Summary ---
Author Organization [employer] Address [address] [place] [address] Care Team Providers Care Bariatric Coordinator Name Role Phone Maribel Donaldson MD Primary Care Provider [phone]- [phone] Reason for Visit * Reason Onset Date Comments insurance posting 03/01/2024 Encounter Details Date Type Department Care Team (Late Contact Info) Description 03/01/2024 Telephone [facility] [address] [place] [address] Jessica Ramos DDS [address] [place] [address] insurance posting Social History Tobacco Use Types [...] Department Care Team (Late Contact Info) Description 07/18/2025 1:15 PM EDT Procedure Visit [facility] [address] [place] [address] Rosina Henley CNM [address] [place] [address] documented as of this encounter Visit Diagnoses Not on filedocumented in this encounter Care Teams Bariatric Coordinator Relationship Specialty Start Date End Date Maribel Donaldson MD [address] [place] [address] PCP - General Family Medicine 05/13/25 documented as of this encounter
--- OUTSIDE RECORDS SUMMARY | 2025-07-04 18:25 | XMS_ITS | Clinical Summary ---
Author Organization [employer] Address [address] [place] [address] Care Team Providers Care Grinding Machine Operator Portable Name Role Phone Maribel Donaldson MD Primary Care Provider [phone] Allergies Active Allergy Reactions Criticality Noted Date Comments Latex Swelling 02/21/2025 Other Reaction(s): Swelling of labia Medications benzoyl peroxide 5 % gelIndications: Cystic acne Apply topically 2 times daily. 60 g 2 5 07/04/20 26 Active levonorgestrel (Plan B) 1.5 MG tabletIndicatio ns:Family planning Take 0.5 tablets (0.75 mg) by mouth every 12 (twelve) hours for 1 day. 1 tablet 5 07/05/20 25 Active cholecalciferol (Vitamin D-3) 50 MCG (2000 UT) capsuleIndicati ons:Vitamin D deficiency Take 1 capsule (50 mcg) by mouth Once per day. 90 capsule 3 5 Active minocycline 100 MG capsuleIndicati ons:Cystic acne vulgaris Take 1 capsule (100 mg) by mouth 2 times daily. 60 capsule 5 06/12/20 25 Active Problems Problem Noted Date Diagnosed Date Other specified health status 05/29/2025 Overview (05/29/2025): -next comprehensive annual evaluation due after 05/29/26 -eye care facilitated by [facility] is in [facility] proxy filed 05/29/25 Assessment & Plan (06/06/2025 10:43 AM EDT): -next comprehensive annual evaluation due after 05/29/26 -eye care facilitated by [facility] is in [facility] proxy filed 05/29/25 Hx of scoliosis 05/29/2025 Overview (06/06/2025): Dx age 17, seen at [facility] with Dr. Starla Bob MD X rays done at [facility], scoliosis stable. PT referral placed and recommended follow up prn for stable scoliosis. Assessment & Plan (06/06/2025 10:43 AM EDT): Dx age 17, seen at [facility] with Dr. Starla Bob MD X rays done at [facility], scoliosis stable. PT referral placed and recommended [...] standing desk via medical records -notes from [facility] requested 05/29/25 see scoliosis dx Assessment & Plan (06/06/2025 10:43 AM EDT): Likely musculoskeletal. Non-focal, normal motor exam without neurological deficits. No back pain red-flags: bowel/bladder incontinence, IVDU, urinary retention, saddle anesthesia, and significant motor deficits. -Recommend continued topicals and lidocaine patch prn. -Physical therapy referral placed 05/29/25 -she will request standing desk via medical records -notes from [facility] requested 05/29/25 see scoliosis dx Family planning 05/29/2025 Overview (05/29/2025): Nextplanon removed 05/07/25 due continued bleeding. Has a history of migraines with aura. Bleeding more and daily on Slynd Has appointment for hormonal IUD, GC/chl ordered 05/29/25 Assessment & Plan (07/04/2025 11:18 AM EDT): Go woman. Desires hormonal IUD for control of menses and prevention. Last unprotected sex 3 days ago. -Check HCG -plan B given [...] Chlamydia/N. Gonorrhoeae RNA, TMA, Vagina POCT Urine Assessment & Plan (06/06/2025 10:43 AM EDT): [...] Encounters Date Type Department Care Team Description 07/04/2025 9:45 AM EDT Office Visit [facility] MEDICINE [address] [place] [phone] Maribel Donaldson MD Cystic acne (Primary Dx); Family planning; Encounter for immunization; Vitamin D deficiency; Transaminitis 07/04/2025 Travel 07/03/2025 Telephone [facility] MEDICINE [address] [place] [address] [phone] Maribel Donaldson MD chart prep 06/12/2025 Telephone [facility] WALK-IN CENTER [address] [place] [phone] Gail Wu MA 05/29/2025 11:30 AM EDT Office Visit [facility] MEDICINE [address] [place] [phone] Maribel Donaldson MD Chronic midline thoracic back pain (Primary Dx); Hx of scoliosis; Dietary counseling; Exercise counseling; Abnormal menses; Family planning; Routine screening for STI (sexually transmitted infection); Screening cholesterol level; Other specified health status 05/29/2025 Travel 05/13/2025 5:40 PM EDT Office Visit [facility] WALK[facility] [address] [place] [phone] Ana Meade MD Cystic acne vulgaris (Primary Dx) 05/13/2025 Travel 05/07/2025 5:40 PM EDT Office Visit [facility] WALK[facility] [address] [place] [address] [phone] Maribel Donaldson MD Family planning (Primary Dx); Routine screening for STI (sexually transmitted infection); Nexplanon removal 05/07/2025 Telephone [facility] [address] [place] [address] [phone] Maribel Donaldson MD Appointment Request (Patient needs [...] 07/29/2022 Influenza, seasonal, injecta ble, preservative free 07/04/2025,06/13/2024 MMR 06/25/2011,12/22/2006 Meningococcal B, Recombinant 02/14/2024,12/22/19 Meningococcal [...] Mass Index 28.35 07/04/2025 9:41 AM EDT Plan of Treatment Upcoming Encounters Date Type Department Care Team (Late st Contact Info) Description 07/18/2025 1:15 PM EDT Procedure Visit [facility] MEDICINE [address] [place] [address] Rosina Henley, CN [address] [place] [address] Health Maintenance Due Date Last Done Comments Dental Oral Exam 2005 Dental Prophylaxis 2005 Dental X-Ray: Bitewings 2005 Fluoride Varnish 01/02/2026 07/04/2025 Chlamydia and Gonorrhea Screening 05/07/2026 05/07/2025, 12/05/2024, 02/14/2024 Alcohol/Substance Use Screening 05/29/2026 05/29/2025 Depression Screening 05/29/2026 05/29/2025, 05/29/20 Disability Screening 05/29/2026 05/29/2025 SDOH Screening 05/29/2026 05/29/2025 COVID-19 Vaccine ( season) 2026 03/23/2021, 02/27/2021 Postponed from 06/03/2025 (Patient Refused) Family Planning (PISQ) 07/04/2026 07/04/2025 Tobacco Screening 07/04/2026 07/04/2025 Dental X-Ray: Full Mouth 03/02/2027 03/01/2024 DTaP/Tdap/Td [...] 017 Meningococcal B Vaccine Completed 02/14/2024, 12/21 HIV Screening Completed 07/03/2025 Hepatitis C Screening Completed 07/03/2025 Influenza Vaccine Completed 07/04/2025, , 07/29/2022, Additional history exists Pneumococcal Vaccine: Pediatrics (0 to 5 Years) [...] Routine 07/04/2025 10:31 AM EDT Family planning [place] APPLICATION TOPICAL FLUORIDE VARNISH BY PHS/QHP Routine 07/04/2025 9:42 AM EDT Family planning TSH W/REFLEX TO FT4 Routine 07/03/2025 4 :08 PM EDT Abnormal menses SYPHILIS SCREEN Routine 07/03/2025 4:08 PM EDT Routine screening for STI (sexually transmitted infection) HIV 1/2 ANTIGEN/ANTIBODY, FOURTH GENERATION W/RFL Routine 07/03/2025 4:08 PM EDT Routine screening for STI (sexually transmitted infection) HEPATITIS C AB W/REFL TO HCV RNA, QN, PCR Routine 07/03/2025 4:08 PM EDT Routine screening for STI (sexually transmitted infection) VITAMIN D,25-OH,TOTAL,IA Routine 07/03/2025 4:08 PM EDT Hx of scoliosis CBC WITH AUTO DIFFERENTIAL Routine 07/03/2025 4:08 PM EDT Abnormal menses BASIC METABOLIC PANEL Routine 07/03/2025 4:08 PM EDT Abnormal menses LIPID PANEL, STANDARD Routine 07/03/2025 4:08 PM EDT Screening cholesterol level MAGNESIUM Routine 07/03/2025 4:08 PM EDT Screening cholesterol level HEPATIC FUNCTION PANEL Routine 07/03/2025 4:08 PM EDT Screening cholesterol level CHLAMYDIA/N. GONORRHOEAE RNA, TMA, UROGENITAL Routine 05/07/2025 6:12 PM EDT Family planning Routine screening for STI (sexually transmitted infection) [place] REMOVAL NON-BIODEGRADABLE DRUG DELIVERY IMPLANT Routine 05/07/2025 6:07 PM EDT Family planning Routine screening for STI (sexually transmitted infection) Nexplanon removal PANORAMIC RADIOGRAPHIC IMAGE Routine 03/01/2024 11:30 AM EDT Impacted tooth from Last 3 Months or Most Recently Relevant to Health Maintenance Results * POCT Urine (07/04/2025 10:31 AM EDT) Preg Test, Ur Negative Negative, Indeterminate, None Detected, Invalid, Specimen unsatisfactory for evaluation, Weakly Positive, 2+ QC Media Lot # [id number] Lot# Expiration Date , QC TEST ,[id number] Urine 07/04/2025 10:3 1 AM EDT Maribel Donaldson MD POINT OF CARE TEST ENTER/E DIT ORDERABLES Final Result * [place] APPLICATION TOPICAL FLUORIDE VARNISH BY PHS/QHP (07/04/2025 9:42 AM EDT) Narrative Liz Ulloa [...] MD IN CLINIC/BEDSIDE ORDERABL ES Final Result * Syphilis Screen (07/03/2025 4:08 PM EDT) Syphilis Screen Nonreactive Nonreactive [facility] Blood Venous blood specimen / Unknown 07/03/2025 4:08 PM EDT 07/03/2025 6:03 PM EDT Maribel Donaldson MD LAB BLOOD ORDERABLES Final Result [facility] [address] [place] [phone] * (ABNORMAL) Vitamin D, 25-Hydroxy, Total, Immunoassay (07/03/2025 4:08 PM EDT) Vitamin D 25-OH Total 26.6(L) >30 ng/mL [facility] Comment: Health Based Reference Values*< 20 ng/mL [id number] ng/mL Insufficient> 30 ng/mL Sufficient*Constance BOWEN. N Engl J Med. 2007;357:266-280There is no well-established upper level of normal vitamin Dlevels. Some laboratories use 50 ng/mL as an upper limit ofnormal. However, toxicity is patient-dependent and may occurat any level. Careful correlation with the patient'spresentation is necessary and, if there is concern forvitamin D toxicity, treatment should be consideredirrespective of the serum level.Care must be taken in interpreting Vitamin D results fromdifferent laboratories and methodologies. Published datademonstrated that results from patients undergoinghemodialysis may show a negative bias when tested withvarious automated 25-OH vitamin D assays when compared toLC-MS/MS.When testing samples from patients whose predominant form ofVitamin D is Vitamin D2, such as patients receiving VitaminD2 supplementation, results that are subtherapeutic shouldbe confirmed with another method such as LC-MS/MS. Blood 07/03/2025 4:08 PM EDT 07/03/2025 6:03 PM EDT us Maribel Donaldson MD LAB BLOOD ORDERABLES Final Result Performing Organization Address [facility]/ZIP Co de Phone Number [facility] [address] [place] [phone] * TSH W/Reflex to FT4 (07/03/2025 4:08 PM EDT) TSH reflex Free T4 1.00 0.32 - 4.0 uIU/mL [facility] Blood Venous blood specimen / Unknown 07/03/2025 4:08 PM EDT 07/03/2025 6:03 PM EDT Maribel Donaldson MD LAB BLOOD ORDERABLES Final Result [facility] [address] [place] [phone] [phone] * (ABNORMAL) CBC auto differential (07/03/2025 4:08 PM EDT) White Blood Count 8.3 4.8 - 10.8 X10*3/uL [facility] Red Blood Count 4.59 4.20 - 5.50 X10*6/uL [facility] Hemoglobin 12.1 12.0 - 16.0 g/dl [facility] Hematocrit 37.8 37.0 - 47.0 % [facility] Mean Corpuscular Volume 82.4 80.0 - 98.0 fL [facility] Mean Corpuscular Hemoglobin 26.4(L) 27.0 - 33.0 pg [facility] Mean Corpuscular HGB Conc 32.0 31.0 - 35.0 g/dl [facility] Red Cell Distribution Width 14.9 11.0 - 16.0 % [facility] Platelet Count 400 160 - 400 X10*3/uL [facility] Mean Platelet Volume 10.9 9.4 - 12.3 fL [facility] Neutrophils Percent Auto 61.9 45 - 73 % [facility] Imm Gran Pct Auto 0.2 0.0 - 0.4 % [facility] Lymphocytes Percent Auto 23.4 20 - 40 % [facility] Monocytes Percent Auto 8.2 2 - 11 % [facility] Eosinophils Percent Auto 5.5(H) 0 - 4 % [facility] Basophils Percent Auto 0.8 0 - 2 % [facility] NRBC Pct Auto 0.0 0.0 - 0.2 /100WBC [facility] Neutrophils Absolute Auto 5.1 2.0 - 8.3 x10*3/uL [facility] Imm Gran Abs Auto 0.02 0.00 - 0.03 X10*3/uL [facility] Lymphocytes Absolute Auto 1.9 1.2 - 4.9 X10*3/uL [facility] Monocytes Absolute Auto 0.7 0.1 - 1.2 X10*3/uL [facility] Eosinophils Absolute Auto 0.5(H) 0.0 - 0.4 X10*3/uL [facility] Basophils Absolute Auto 0.1 0.0 - 0.2 X10*3/uL [facility] NRBC Abs Auto 0.000 0.0 - 0.012 X10*3/uL [facility] Blood Venous blood specimen / Unknown 07/03/2025 4:08 PM EDT 07/03/2025 6:03 PM EDT Maribel Donaldson MD LAB BLOOD ORDERABLES Final Result Performing Organization Address [facility]/ZIP Co de Phone Number [facility] [address] [place] [phone] * Hepatitis C Antibody with Reflex to HCV, RNA, Quantitative, Real-Time PCR (07/03/2025 4:08 PM EDT) Pathologist [facility] Hepatitis C Antibody Nonreactive Nonreactive [facility] Comment:Antibodies to HCV no t detected; does not exclude early acuteHCV infection. Blood Venous blood specimen / Unknown 07/03/2025 4:08 PM EDT 07/03/2025 6:03 PM EDT Maribel Donaldson MD LAB BLOOD ORDERABLES Final Result Performing Organization Address [facility] Co de Phone Number [facility] [address] [place] [phone] * HIV-1/2 Antigen and Antibodies, Fourth Generation, with Reflexes (07/03/2025 4:08 PM EDT) Pathologist [facility] HIV AB/AG Nonreactive Nonreactive [facility] Comment:HIV-1 p24 Ag and/or HIV-1/HIV-2 Ab not detected.A test result that is nonreactive does not exclude thepossibility of exposure to or infection with HIV-1 and/orHIV-2. Nonreactive results in this assay for individualswith prior exposure to HIV-1 and/or HIV-2 may be due toantigen and antibody levels that are below the limit ofdetection of this assay.The Ambrx HIV Ag/Ab Combo assay result andsupplemental assay results should be interpreted inconjunction with the patient's clinical presentation,history and other laboratory results. If the results areinconsistent with clinical evidence, additional testing issuggested to confirm the result. Blood Venous blood specimen / Unknown 07/03/2025 4:08 PM EDT 07/03/2025 6:03 PM EDT Maribel Donaldson MD LAB BLOOD ORDERABLES Final Result Performing Organization Address [facility]/ZIP Co de Phone Number [facility] [address] [place] [phone] * Magnesium (07/03/2025 4:08 PM EDT) Magnesium 1.9 1.6 - 2.6 mg/dL [facility] Blood Venous blood specimen / Unknown 07/03/2025 4:08 PM EDT 07/03/2025 6:03 PM EDT Maribel Donaldson MD LAB BLOOD ORDERABLES Final Result Performing Organization Address [facility] Co de Phone Number [facility] [address] [place] [phone] * (ABNORMAL) Hepatic Function Panel (07/03/2025 4:08 PM EDT) Bilirubin, Total 0.2 0.0 - 1.0 mg/dL [facility] Bilirubin, Direct <0.2 0.0 - 0.5 mg/dL [facility] Aspartate Amino Transferase 46(H) 5 - 31 U/L [facility] Alanine Aminotransferase 42(H) 0 - 31 U/L [facility] Total Protein 7.7 6.5 - 8.0 g/dL [facility] Albumin Level 4.6 3.5 - 5.0 g/dL [facility] Alkaline Phosphatase 101 39 - 117 U/L [facility] Blood Venous blood specimen / Unknown 07/03/2025 4:08 PM EDT 07/03/2025 6:03 PM EDT Maribel Donaldson MD LAB BLOOD ORDERABLES Final Result Performing Organization Address City/[facility]/ZIP Co de Phone Number [facility] [address] [place] [phone] * Lipid Panel, Standard (07/03/2025 4:08 PM EDT) Triglycerides 76 <150 mg/dL [facility] Comment:Desirable Triglyceri de: less than 90 mg/dLBorderline High Triglyceride: 90-129 mg/dLHigh Triglyceride: greater than 130 mg/dL Cholesterol 156 <200 mg/dL [facility] Comment:Desirable Cholestero l: less than 170 mg/dLBorderline High Cholesterol: 170-199 mg/dLHigh Cholesterol: greater than 200 mg/dL LDL Cholesterol Calculated 91 <100 mg/dL [facility] Comment:Desirable LDL: less than 110 mg/dLBorderline LDL: 110-129 mg/dLHigh LDL: greater than or equal to 130 mg/dL HDL Cholesterol 50 >40 mg/dL [facility] Comment:Desirable HDL: great er than 45 mg/dLBorderline HDL: 40-45 mg/dLLow HDL: less than 40 mg/dL Note: This HDL assay may give artificially low results in patients with liver disease. Blood Venous blood specimen / Unknown 07/03/2025 4:08 PM EDT 07/03/2025 6:03 PM EDT Maribel Donaldson MD LAB BLOOD ORDERABLES Final Result Performing Organization Address City/[facility]/ZIP Co de Phone Number [facility] [address] [place] [phone] * (ABNORMAL) Basic Metabolic Panel (07/03/2025 4:08 PM EDT) Sodium 142 135 - 145 mmol/L [facility] Potassium 4.0 3.3 - 5.1 mmol/L [facility] Chloride 107 96 - 108 mmol/L [facility] Carbon Dioxide 28 22 - 29 mmol/L [facility] Anion Gap 11(L) 12 - 20 [facility] Urea Nitrogen (BUN) 13 9 - 16 mg/dL [facility] Creatinine, Serum 0.95 0.5 - 1.4 mg/dL [facility] Estimated Glomerular Filt Rate >60 [facility] Comment:Chronic Kidney Disea se: Estimated GFR < 60 mL/min/[id number] Kidney Disease: Estimated GFR < 15 mL/min/1.73m2 Glucose 84 60 - 115 mg/dL [facility] Calcium 9.3 8.4 - 10.2 mg/dL [facility] Blood Venous blood specimen / Unknown 07/03/2025 4:08 PM EDT 07/03/2025 6:03 PM EDT us Maribel Donaldson MD LAB BLOOD ORDERABLES Final Result [facility] [address] [place] [phone] * Chlamydia/N. Gonorrhoeae RNA, TMA, Vagina (05/07/2025 6:12 PM EDT) CT PCR NOT DETECTED Not Detect. [facility] Comment:A not detected test result [...] psychologicalconsequences. NG PCR NOT DETECTED Not Detect. [facility] Comment:A not detected test result [...] 6:12 PM EDT 05/08/2025 11:28 AM EDT us Maribel Donaldson MD LAB MICROBIOLOGY - GENERAL ORDERABLES Final Result [facility] [address] [place] [phone] * [place] REMOVAL NON-BIODEGRADABLE DRUG DELIVERY IMPLANT (05/07/2025 6:07 [...] from Last 3 Months Insurance HSN PARTIAL Advance Directives Documents on File Type Date Recorded Patient Machine Shop Supervisor Expl anation Advance Directives and Living Will 05/30/2025 Health Care Proxy 05/29/25 Care Teams Grinding Machine Operator Portable Relationship Specialty Start Date End Date Maribel Donaldson MD [address] [place] [phone] PCP - General Family Medicine 05/13/25
--- OUTSIDE RECORDS SUMMARY | 2025-07-04 18:25 | XMS_ITS | Clinical Summary ---
Author Organization [facility] Address [address] [place] [address] Phone Care Team Providers Care Pot Operator Name Role Phone Geena Ravi MD Primary Care Provider [phone] Allergies Active Allergy Reactions Criticality Noted Date Comments Latex 02/21/2025 Other Reaction(s): Swelling of labia Medications sucralfate (CARAFATE) 1 gram tablet Take 1 tablet (1 g total) by mouth 4 (four) times a day. 120 each 04/30/2025 Active Active Problems Problem Noted Date Diagnosed Date Anterior epistaxis 12/20/2024 Jaw pain 02/14/2024 Eczema 08/03/2022 Bilateral temporomandibular joint pain Overview (05/12/2025): Arthralgia of bilateral temporomandibular joint; [...] EDT - 04/30/2025 9:18 PM EDT Emergency [facility] Emergency [address] [place] [phone] Franco Clark MD Nausea and vomiting, unspecified vomiting type (Primary Dx); Chronic gastritis without bleeding, unspecified gastritis type Discharge Disposition: Home or Self Care 04/27/2025 11:45 PM EDT - 04/28/2025 2:58 AM EDT [facility] Emergency [address] [place] [phone] Micheline Iqbal MD Acute nonintractable headache, unspecified [...] History Growth Chart Information Age Height Weight Mwurcq-roi-upzz th Percentile BMI Percentile Head Circum Head Circum Percentile Date 19 years 157.5 cm (5' 2 ) 68 kg (150 lb) 88.67%* 2024 19 years 157.5 cm (5' 2 ) 68 kg (150 lb) 88.68%* 2024 19 years 157.5 cm (5' 2 ) 63.5 kg (140 lb) 82.54%* 2024 * [facility] (Girls, 2-20 Years) Last Filed Vital Signs [...] of2 resultswithin the time period is included. [facility] WBC 9.2 4.8 - 10.8 K/mcL LAB HEMETOLOGY METHOD 04/30/2025 7:25 PM EDT [facility] RBC 5.00(H) 3.80 - 4.80 M/mcL LAB HEMETOLOGY METHOD 04/30/2025 7:25 PM EDT [facility] Hemoglobin 12.6 11.5 - 16.0 g/dL LAB HEMETOLOGY METHOD 04/30/2025 7:25 PM EDT [facility] Hematocrit 39.8 35.0 - 47.0 % LAB HEMETOLOGY METHOD 04/30/2025 7:25 PM EDT [facility] MCV 80.1 79.0 - 98.0 FL LAB HEMETOLOGY METHOD 04/30/2025 7:25 PM EDT [facility] MCH 25.4(L) 27.0 - 32.0 pcg LAB HEMETOLOGY METHOD 04/30/2025 7:25 PM EDT [facility] MCHC 31.7(L) 32.0 - 37.0 g/dL LAB H[facility]OLOG[facility] RDW 15.4(H) 11.0 - 15.0 % LAB HEMETOLOGY METHOD 04/30/2025 7:25 PM EDT [facility] Platelets 370 130 - 400 K/mcL LAB HEMETOLOGY [facility] MPV 9.7 7.0 - 11.0 FL LAB HEMETOLOGY METHOD 04/30[facility]25 7[facility] NRBC 0.0 <1.0 % LAB HEMETOLOGY METHOD 04/30/2025 7:25 PM EDT [facility] NRBC Absolute 0.00 <0.10 K/mcL LAB HEMETOLOGY METHOD 04/30[facility]2025 7[facility] Neutrophils Relative 67.7 % LAB HEMETOLOGY METHOD [facility] Lymphocytes Relative 19.3 % LAB HEMETOLOGY METHOD 04/30/2025 7:25 PM EDT [facility] Monocytes Relative 9.9 % LAB HEMETOLOGY METHOD [facility]/30[facility] Eosinophils Relative 2.3 % LAB HEMETOLOGY METHOD 04/30[facility]25 7[facility] Basophils Relative 0.5 % LAB HEMETOLOGY METHOD 04/30[facility]2025 7[facility] Immature Granulocytes Relative 0.3 % LAB HEMETOLOGY METHOD 04/30/2025 7:25 PM EDT [facility] Neutrophils Absolute 6.22 1.50 - 7.00 K/mcL LAB HEMETOLOGY METHOD 04/30/2025 7:25 PM EDT [facility] Lymphocytes Absolute 1.77 1.00 - 5.00 K/mcL LAB HEMETOLOGY METHOD 04/30/2025 7:25 PM EDT [facility] Monocytes Absolute 0.91 0.20 - 1.00 K/mcL LAB HEMETOLOGY METHOD 04/30/2025 7:25 PM EDT [facility] Eosinophils Absolute 0.21 0.00 - 0.50 K/[facility] LAB HEMETOLOGY METHOD 04/30/2025 7:25 PM EDT [facility] Basophils Absolute 0.05 0.00 - 0.20 K/mcL LAB HEMETOLOGY METHOD 04/30/2025 7:25 PM EDT [facility] Immature Granulocytes Absolute 0.03 0.00 - 0.03 K/mcL LAB HEMETOLOGY METHOD 04/30/2025 7:25 PM EDT [facility] Blood Venous blood specimen / Unknown Venipuncture / Unknown 04/30/2025 7:04 PM EDT 04/30/2025 7:20 PM EDT us Jasvir Mitchell MD LAB BLOOD ORDERABLES Final Result [facility] [address] [place] [address], * Lipase (04/30/2025 7:04 PM EDT) Lipase 33 13 - 75 unit/L LAB CHEMISTRY METHOD 04/30/2025 7:45 PM EDT [facility] Blood Venous blood specimen / Unknown Venipuncture / Unknown 04/30/2025 7:04 PM EDT 04/30/2025 7:20 PM EDT us Jasvir Mitchell MD LAB BLOOD ORDERABLES Final Result [facility] [address] [place] [address], * Comprehensive metabolic panel (04/30/2025 7:04 PM EDT) Only the most recent of2 resultswithin the time period is included. Sodium 139 133 - 145 mmol/L LAB CHEMISTRY METHOD 04/30/2025 7:47 PM [facility] Potassium 3.9 3.5 - 5.5 mmol/L LAB CHEMISTRY METHOD 04/30/2025 7:47 PM [facility] Chloride 104 96 - 110 mmol/L LAB CHEMISTRY METHOD 04/30/2025 7:47 PM [facility] CO2 26 21 - 32 [...] LAB CHEMISTRY METHOD 04/30/2025 7:47 PM EDT [facility] AST (SGOT) 21 10 - 42 unit/L LAB CHEMISTRY METHOD 04/30/2025 7:47 PM T [facility] ALT (SGPT) 35 10 - 60 unit/L LAB CHEMISTRY METHOD 04/30/2025 7:47 PM EDT [facility] Alkaline Phosphatase 99 42 - 121 unit/L LAB CHEMISTRY METHOD 04/30/2025 7:47 PM EDT [facility] Total Protein 7.7 6.0 - 8.0 g/dL LAB CHEMISTRY METHOD 04/30/2025 7:47 PM [facility] Albumin 4.3 3.2 - 5.0 g/dL LAB CHEMISTRY METHOD 04/30/2025 7:47 PM [facility] Total Bilirubin 0.3 0.0 - 1.4 mg/dL LAB CHEMISTRY METHOD 04/30/2025 7:47 PM T [facility] Blood Venous blood specimen / Unknown Venipuncture / Unknown 04/30/2025 7:04 PM EDT 04/30/2025 7:20 PM EDT us Jasvir Mitchell MD LAB BLOOD ORDERABLES Final Result [facility] [address] [place] [address], * (ABNORMAL) Urinalysis with reflex microscopic and culture (04/30/2025 6:58 PM EDT) Only the most recent of2 resultswithin the time period is included. Specific [place] Urine 1.014 1.003 - 1.030 LAB URINALYSIS - AUTOMATED METHOD 04/30/2025 7:28 PM EDT [facility] pH, Urine 6.0 5.0 - [...] - AUTOMATED METHOD 04/30/2025 7:28 PM EDT [facility] Urine Urine specimen obtained by clean catch procedure / Unknown Non-blood Collection / Unknown 04/30/2025 6:58 PM EDT 04/30/2025 7:20 PM EDT Jasvir Mitchell MD LAB URINE ORDERABLES Final Result Performing Organization Address [facility]/ZIP Co de Phone Number [facility] [address] [place] [address], [place] [phone] * Sor[place] urine culture tube (04/30/2025 6:58 PM EDT) Only the most recent of2 resultswithin the time period is included. Extra Tube Hold for add-ons. 04/30/2025 9:01 PM EDT [facility] Comment:Auto resulted. Urine Urine specimen obtained by clean catch procedure / Unknown Non-blood Collection / Unknown 04/30/2025 6:58 PM EDT 04/30/2025 7:20 PM EDT Jasvir Mitchell MD LAB URINE ORDERABLES Final Result Performing Organization Address [facility] Co de Phone Number [facility] [address] [place] [address], [place] [phone] * CT Head wo Contrast (04/28/2025 1:28 [...] Qual Negative Negative 04/28/2025 1:10 AM EDT [facility] Blood Venous blood specimen / Unknown Venipuncture / Unknown 04/28/2025 12:16 AM EDT 04/28/2025 12:47 AM EDT Micheline Iqbal MD LAB BLOOD ORDERABLES Final Res ult [facility] [address] [place] [address], * Magnesium (04/28/2025 12:16 AM EDT) Magnesium 2.0 1.9 - 2.6 mg/dL LAB CHEMISTRY METHOD 04/28/2025 1:16 AM EDT [facility] Blood Venous blood specimen / Unknown Venipuncture / Unknown 04/28/2025 12:16 AM EDT 04/28/2025 12:47 AM EDT us Micheline Iqbal MD LAB BLOOD ORDERABLES Final Res ult [facility] [address] [place] [address], from Last 3 Months Insurance MEDICAID - [place] Care Teams Pot Operator Relationship Specialty Start Date End Date Geena Ravi MD [address] [place] [address] PCP - General Pediatrics 04/27/25
--- OUTSIDE RECORDS SUMMARY | 2025-07-04 18:25 | XMS_ITS | Clinical Summary ---
Author Organization [facility] Address [address] [place] [address] Phone Care Team Providers Care Group Insurance Special Agent Name Role Phone Geena Ravi MD Primary Care Provider Allergies No known active allergies Medications Etonogestrel [...] 05/07/2025 Telephone [facility] - [address] [address] Bea Brunner LPN nexplanon removal concern 05/02/2025 Telephone [facility] - [address] [place] [address] Myranda Lemus LPN ED Visits 04/28/2025 Telephone [facility] - [address] [address] Geena Ravi MD Discharge Follow-Up - ED 04/26/2025 8:13 AM EDT - 04/26/2025 12:46 PM EDT Emergency [facility] - Patient Ping from Last 3 [...] complete this topic Procedures * Due to [place] Mo[employer] law, this organization might not be sharing sensitive test results. Procedure Name Priority Date/Time Associated Diagnosis Comments CHLAMYDIA AND GONORRHEA, AMPLIFIED Routine 12/05/2024 4:23 PM EST Encounter for initial prescription of Nexplanon from Last 3 Months or Most Recently Relevant to Health Maintenance Results * Due to [place] [employer] law, this organization might not be sharing sensitive test results. * Chlamydia and Gonorrhoea, Amplified (12/05/2024 4:23 PM EST) C trach TUNG Negative Negative [facility] N gonorrhoeae TUNG Negative Negative [facility] Urine (Urine) 12/05/2024 4:2 3 PM EST 12/05/2024 Comment:Urine URINE Narrative [facility] - 12/06/2024 4:06 PM EST Performed at: 01 - [facility] [address], [address], [place] [id number] Procurement Representative: Remberto Waters MD, Phone: [phone] us Rob [facility] MICROBIOLOGY - GENERAL ORD ERABLES Final Result [facility] [address] [place] [address] from Last 3 Months or Most Recently Relevant to Health Maintenance Care Teams Group Insurance Special Agent Relationship Specialty Start Date End Date Geena Ravi MD [address] [place] [address] E[place]IN Merino [id number] PCP - General Pediatrics 07/19/22
--- OUTSIDE RECORDS SUMMARY | 2025-07-04 18:25 | XMS_ITS | Encounter Summary ---
Author Organization [employer] Address [address] [facility] [address] [place] [address] Care Team Providers Care Launch Commander [employer] Name Role Phone Maribel Donaldson MD Primary Care Provider [phone] Reason for Visit * Reason Onset Date Comments chart prep 07/03/2025 Encounter Details Date Type Department Care Team ([facility] st Contact Info) Description 07/03/2025 Telephone [facility] [address] [place], [place] [phone] Maribel Donaldson MD [address] [place], [place] [phone] chart prep Social History Tobacco Use Types [...] Upcoming Encounters Date Type Department Care Team ([facility] st Contact Info) Description 07/18/2025 1:15 PM EDT Procedure Visit [facility] [address] [place] [address] Rosina Henley CNM [address] [place] [address] documented as of this encounter Visit Diagnoses Not on filedocumented in this encounter Additional Health Concerns Assessment Noted Time PHQ-9 Depression Total Score: 4 05/29/20 12:06 PM EDT documented as of this encounter Care Teams Launch Commander [employer] Relationship Specialty Start Date End Date Maribel Donaldson MD [address] [place] [address] PCP - General Family Medicine 05/13/25 documented as of this encounter
--- OUTSIDE RECORDS SUMMARY | 2025-07-04 18:25 | XMS_ITS | Encounter Summary ---
Author Organization [employer] [facility] Address [address] [facility] [address] [place] [address] Care Team Providers Care Diving Coach Name Role Phone Maribel Donaldson MD Primary Care Provider [phone] Encounter Details Date Type Department Care Team (Latest Contact Info) Description 07/04/2025 Travel Social History Tobacco Use Types Packs/Day Years Used Date Smoking Tobacco: Never Passive Smoke Exposure: Never Smokeless Tobacco: Never Alcohol Use Standard [...] as of this encounter Plan of Treatment Upcoming Encounters Date Type Department Care Team (Late st Contact Info) Description 07/18/2025 1:15 PM EDT Procedure Visit [facility] MEDICINE [address] [place] [address] Rosina Henley CNM [address] [place] [address] documented as of this encounter Visit Diagnoses Not on filedocumented in this encounter Additional Health Concerns Assessment Noted Time PHQ-9 Depression Total Score: 4 05/29/20 25 12:06 PM EDT documented as of this encounter Care Teams Diving Coach Relationship Specialty Start Date End Date Maribel Donaldson MD [address] [place] [address] PCP - General Family Medicine 05/13/25 documented as of this encounter
[2025-07-05 09:08] LABS: CT PCR NOT DETECTED (Not Detect.); NG PCR NOT DETECTED (Not Detect.)
== END 2025-07-04 18:23 | disposition home or self-care (01) ==
LOC: HO.LNP 18:22
PROVIDERS: Visit Provider Family Medicine
DX: Z30.09 Encounter for other general counseling and advice on contraception (principal); Z20.2 Contact with and (suspected) exposure to infections with a predominantly sexual mode of transmission
CPT/HCPCS: 87491; 87591

== ENCOUNTER 2025-07-18 18:25 | Outpatient (REF) | payer OTHER, SELFPAY ==
--- OUTSIDE RECORDS SUMMARY | 2025-07-18 13:15 | XMS_ITS | Encounter Summary ---
Author Organization [employer] Address [address] [facility] [address] [place] [address] Care Team Providers Care Blasting Machine Operator Name Role Phone Maribel Donaldson MD Primary Care Provider [phone]- [phone] Encounter Details Date Type Department Care Team (Latest Contact Info) Description 07/18/2025 1:15 PM EDT Procedure Visit [facility] MEDICINE [address] [place], [place] [phone] Rosina Henley CN [address] [place], [place] [phone] Encounter for initial insertion of intrauterine contraceptive device (Primary Dx); Family planning; Vaginal discharge; Urinary symptom or sign Social History Tobacco Use Types Packs/Day Years [...] Sign Reading Time Taken Comments Blood Pressure 120/58 07/18/2025 1:19 PM EDT Pulse 86 07/18/2025 1:19 PM EDT Temperature 36.1 C (96.9 F) 07/18/2025 1:19 PM EDT Respiratory Rate 20 07/18/2025 1:19 PM EDT Oxygen Saturation 99% 07/18/2025 1:19 PM EDT Inhaled Oxygen Concentration - - Weight 72.2 kg (159 lb 3.2 oz) 07/18/2025 1:19 P M EDT Height 157.5 cm (5' 2 ) 07/18/2025 1:19 PM EDT Body Mass Index 29.12 07/18/2025 1:19 PM EDT documented in this encounter Progress Notes * Rosina Henley CNM - 07/18/2025 1:15 PM EDTAssociated Order(s): IUD Management Subjective Patient ID: Alex Flor is a 19 y.o. female who presents for IUD Gonorrhea/Chlamydia neg 07/2025. No new partners. LMP 06/22. Notes some vaginal discharge recently. test negative today. Sexually active without a condom 3 days ago. Denies any other sex without a method since last menses. Reviewed IUD types. She would like ParaGard today. Does not want irregular bleeding or worsening acne. Review of Systems Genitourinary: Positive for vaginal discharge. Negative for decreased urine volume, dyspareunia, dysuria, pelvic pain, urgency, vaginal bleeding and vaginal pain. Objective BP 120/58 (BP Location: Left arm, Patient Position: Sitting, BP Cuff Size: Adult) Pulse 86 Temp96.9 ??F (36.1 ??C) (Temporal) Resp 20 Ht 5' 2 (1.575 m) Wt 159 lb 3.2 oz (72.2 kg) LMP 06/22/2025 (Exact Date) SpO2 99% BMI 29.12 kg/m?? Physical Exam [facility] Supervisor present: declines microarray analyst. Constitutional: Appearance: Normal appearance. Genitourinary: General: Normal vulva. Labia: Right: No rash, tenderness, lesion or injury. Left: No rash, tenderness, lesion or injury. Vagina: Normal. No signs of injury and foreign body. No vaginal discharge, erythema, tenderness, bleeding or lesions. Cervix: No cervical motion tenderness, discharge, friability, lesion, erythema, cervical bleeding or eversion. Uterus: Normal. Not enlarged and not tender. Adnexa: Right adnexa normal and left adnexa normal. Right: No mass, tenderness or fullness. Left: No mass, tenderness or fullness. Neurological: Mental Status: She is alert. Psychiatric: Mood and Affect: Mood normal. Behavior: Behavior normal. Assessment/Plan Diagnoses and all orders for this visit: Encounter for initial insertion of intrauterine contraceptive device Reviewed normal side effects and danger signs. Report heavy bleeding, fever, chills or abdominal pain. Reviewed how to check IUD strings. Report if change in string length, strings not palpable or ifplastic is felt. Do not pull on strings. Remove/replace IUD by 12 y from insertion. May remove any time before then if desired. Reviewed recent data showing increased risk of ParaGard fracture, particularly when in place for 6 years or longer. Aelx aviles. ParaGard is effective immediately, but advised backup method until followup visit as precaution. Family planning - POCT , urine manually resulted - ibuprofen tablet 400 mg Vaginal discharge - Bacterial Vaginosis, Yeast and Trich; Future - POCT fern test, vaginal fluid manually resulted Negative wet mount today. Will send bacterial vaginosis swab and treat positive results. Urinary symptom or sign - POCT urinalysis dipstick manually resulted (CPT 00314) Negative UA today. IUD Management Performed by: Rosina Henley CNM Authorized by: Rosina Henley CNM Procedure: IUD insertion Consent obtained by patient, parent, or legal power of insurance attorney - including discussion of procedurerisks and benefits, patient questions answered, and patient education provided: yes risk: reasonably certain the patient is not Pre-Medications: Ibuprofen 400mg Date/Time of Insertion: 07/18/2025 1:45 PM Immediately prior to procedure a time out was called: yes Pelvic exam performed: yes Speculum placed in vagina: yes Cervix cleaned and prepped: yes Tenaculum/Allis/Ring Forceps applied to cervix: yes (anterior lip) Anesthesia used: yes Local anesthesia: Topical Local anesthetic: Lidocaine Anesthetic strength (%): 2 Volume (mL): 3 Uterus sound depth (cm): 7 Cervix manually dilated: no IUD inserted without complications: yes OSM: copper Strings trimmed to (cm): 3 Patient tolerated procedure well: yes Estimated blood loss (mL): 10 Intended removal date: 10 years Insertion comments: Tolerated well. Bleeding from tenaculum sites controlled with scopettes. documented in this encounter Plan of Treatment Upcoming Encounters Date Type Department Care Team (Late st Contact Info) Description 08/15/2025 11:30 AM EST Office Visit [facility] [address] [place] [address] Rosina Henley CNM [address] [place] [address] Scheduled Orders Name Type Priority Associated Diagnoses Orde r Schedule Bacterial Vaginosis, Yeast and Trich Microbiology Routine Vaginal discharge Expected: 07/18/2025 (Approximate), Expires: 07/18/2026 documented as of this encounter Procedures Procedure Name Priority Date/Time Associated Diagnosis Comments POCT WET MOUNT/VERO Routine 07/18/2025 3: 52 PM EDT Vaginal discharge POCT , URINE Routine 07/18/2025 1:33 PM EDT Family planning POCT URINALYSIS DIPSTICK Routine 07/18/2025 1:33 PM EDT Urinary symptom or sign IUD MANAGEMENT Routine 07/18/2025 1:15 PM EDT Encounter for initial insertion of intrauterine contraceptive device documented in this encounter Results * POCT fern test, vaginal fluid manually resulted (07/18/2025 3:52 PM EDT) VERO Prep Negative Comment:pH 4.5, neg whiff, n eg clue, neg trich, neg yeast, neg wbc Vaginal Fluid Vaginal structure / Unknown 07/18/2025 3:52 PM EDT Rosina Henley [facility] POINT OF CARE TEST ENTER/ EDIT ORDERABLES Final Result * POCT urinalysis dipstick manually resulted (CPT 18521) (07/18/2025 1:33 PM EDT) Color, UA Yellow Clarity, UA Clear Glucose, UA Negative Bilirubin, UA Negative Ketones, UA Negative Spec Grav, UA 1.020 Blood, UA Negative Negative, None Detected pH, UA 7.0 Protein, UA Negative Urobilinogen, UA 0.2 Leukocytes, UA Negative Negative, Rare, Trace Nitrite, UA Negative Negative, None Detected QC Media Lot # [id number] Lot# Expiration Date 6,026 Urine (Urine, Random) 07/18/2025 1:33 PM EDT Rosina Henley [facility] POINT OF CARE TEST ENTER/ EDIT ORDERABLES Final Result * POCT , urine manually resulted (07/18/2025 1:33 PM EDT) Preg Test, Ur Negative Negative, Indeterminate, None Detected, Invalid, Specimen unsatisfactory for evaluation, Weakly Positive, 2+ QC Media Lot # [id number] Lot# Expiration Date [id number] Urine 07/18/2025 1:33 PM EDT Rosina Henley CNM POINT OF CARE TEST ENTER/ EDIT ORDERABLES Final Result * IUD Management (07/18/2025 1:15 PM EDT) Narrative Rosina Henley CNM - 07/18/2025 1:15 PM EDT Rosina Henley CNM 07/18/2025 3:53 PM IUD Management Performed by: Rosina Henley CNM Authorized by: Rosina Henley CNM Procedure: IUD insertion Consent obtained by patient, parent, or legal power of insurance attorney - including discussion of procedure risks and benefits, patient questions answered, and patient education provided: yes risk: reasonably certain the patient is not Pre-Medications: Ibuprofen 400mg Date/Time of Insertion: 07/18/2025 1:45 PM Immediately prior to procedure a time out was called: yes Pelvic exam performed: yes Speculum placed in vagina: yes Cervix cleaned and prepped: yes Tenaculum/Allis/Ring Forceps applied to cervix: yes (anterior lip) Anesthesia used: yes Local anesthesia: Topical Local anesthetic: Lidocaine Anesthetic strength (%): 2 Volume (mL): 3 Uterus sound depth (cm): 7 Cervix manually dilated: no IUD inserted without complications: yes OSM: copper Strings trimmed to (cm): 3 Patient tolerated procedure well: yes Estimated blood loss (mL): 10 Intended removal date: 10 years Insertion comments: Tolerated well. Bleeding from tenaculum sites controlled with scopettes. Rosina Henley CNM IN CLINIC/BEDSIDE ORDERAB LES Final Result documented in this encounter Visit Diagnoses Diagnosis Encounter for initial insertion of intrauterine contraceptive device- Primary Family planning Other general counseling and advice for contraceptive management Vaginal discharge Leukorrhea, not specified as infective Urinary symptom or sign documented in this encounter Administered Medications Active Administered Medications - up to 3 most recent administrations Medication Order MAR Action Action Date Dose Rate Site lidocaine 2 % gel Topical, As needed, mild pain, Starting on Naz 07/18/25 at 1340Indications:Encounter for initial insertion of intrauterine contraceptive device Given 07/18/2025 1:40 PM EDT Inactive Administered Medications - up to 3 most recent administrations Medication Order MAR Action Action Date Dose Rate Site copper (Paragard) IUD Intrauterine, Once PRN Procedure, Starting on Naz 07/18/25 at 1315, For 1 doseIndications:Encounter for initial insertion of intrauterine contraceptive device Given 07/18/2025 1:15 PM EDT ibuprofen tablet 400 mg 400 mg, Oral, Once, On Naz 07/18/25 at 1515, For 1 doseIndications:Family planning Given 07/18/2025 1:30 PM EDT 400 mg documented in this encounter Additional Health Concerns Assessment Noted Time PHQ-9 Depression Total Score: 4 05/29/20 25 12:06 PM EDT documented as of this encounter Care Teams Blasting Machine Operator Relationship Specialty Start Date End Date Maribel Donaldson MD [address] [place] [id number] PCP - General Family Medicine 05/13/25 documented as of this encounter
--- OUTSIDE RECORDS SUMMARY | 2025-07-18 19:53 | XMS_ITS | Data Portability ---
Author Organization [place] [facility], Allergy Address [address] [facility] [address] [place] [address] Care Team Providers Care Ranger Aide Name Role Phone MEEKRISH Referring Provider [phone] WILMAR SORIANO Primary Care Provider Assessment Encounter [...] . Imaging None recorded . Medication Orders [place] Saline Gel nasal spray 025 12/21/19 25 [facility][id number], [address] [facility], [place], [address], 03/20/202 5 13:13:20 [place] Saline nasal gel 025 12/21/19 25 [facility] #[id number], [address] [place], [address], 5 13:13:20 Patient TargetsNo targets recorded. Patient InstructionsNo instructions recorded. Reason for Referral None Reported. Problems Name Problem SNOMED Code Status Onset Date Resolution Date Notes Provider Name and Address Organization Details Recorded Time Headache 74400168 Active 2019 Headache; Note: Date Diagnosed : 03/14/2020 8:45 AM (R51) Not Available [facility] 4 02:18:51 Palpitati ons 65645845 Active 2019 Palpitati ons; Note: Date Diagnosed : 03/14/2020 8:45 AM (R00.2) Not Available [facility] 4 02:18:51 Abnormal auditory perceptio n 76154688 Active 2019 Other abnormal auditory perceptio ns, bilateral ; Note: Date Diagnosed : 03/14/2020 8:45 AM (H93.293) Not Available [facility] 4 02:18:39 Dizziness and giddiness 530185279 Active 2019 Dizziness and giddiness ; Note: Date Diagnosed : 03/14/2020 8:45 AM (R42) Not Available [facility] 4 02:19:04 Bilateral temporoma ndibular joint pain 68645808983 243650 Active 2021 Arthralgi a of bilateral temporoma ndibular joint; Note: Date Diagnosed : 01/18/2022 1:49 PM (M26.623) Not Available [facility] 4 02:18:16 Bilateral earache 302441808 Active 2021 Otalgia, bilateral ; Note: Date Diagnosed : 01/18/2022 1:49 PM (H92.03) Not Available [facility] 4 02:18:36 Referred otalgia 93439789 Active 2021 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 Procedures Surgical History Date Name Laterality Status Provider Name and Address Organization Details Recorded Time Epistaxis Simple Nasal Cautery Right completed JOSR OLIVEIRA PA-C [address] [facility],[place] [address], [place], [address], [facility] - [facility] 12/20/2024 17:27:53 Imaging Results None recorded. [...] completed Not Available Not Available Not Available [place] Saline nasal gel Take 1 applicati on [...] completed Not Available Not Available Not Available [place] Saline Gel nasal spray Take 2 sprays [...] 12/20/2024 157.48 cm 24.7 kg/m2 78 % 52494.97 g Moinque Rogers [place] [facility] 12/20/2024 09:16:59 Social History None recorded. Functional Status None recorded. Mental Status None recorded. Family History Nothing Reported. Medical History No medical history recorded. Gynecological HistoryNo gynecological history recorded. Obstetrics History GPAL:G 0 P 0 0 0 0 Past Encounters Encounter ID Performer Location Encounter Start Date Encounter Closed Date Diagnosis/Indication Diagnosis SNOMED-CT Code Diagnosis ICD10 Code Diagnosis IMO Codes Diagnosis Note [id number] JOSR OLIVEIRA PA-C [facility] [address] [address] 12/20/2024 09:11:55 12/20/2024 09:57:22 Anterior epistaxis 851561175 R04.0 Health Concerns Section Related Observation LastModified by Organization Detai ls LastModified Time None Recorded Concern Status LastModified by Organization Details LastModified Time None Recorded Advance Directives Directive None Recorded Payers Insurance Date Sequence Insurance Name Policy Number Policy Nava Covered Member ID Nava Member ID Guarantor Name 12/20/2024 1 [facility] (MEDICAID REPLACEMENT - HMO) CHILDACO [employer] Flor [id number] [employer] Notes Date Note Type [...] or family history of bleeding disorder. VIVIAN PELAEZ MD [address] [place] [address], [place], [address], [place] [facility] 12/25/2024 12:58:36 OBGyn Episode No OBEpisode recorded.
--- OUTSIDE RECORDS SUMMARY | 2025-07-18 19:53 | XMS_ITS | Encounter Summary ---
Author Organization [employer] Address [address] [facility] 7t [place] [address] Care Team Providers Care Sleep Tech Name Role Phone Maribel Donaldson MD Primary Care Provider [phone]- [phone] Reason for Visit * Reason Onset Date Comments Insurance 07/18/2025 Encounter Details Date Type Department Care Team ([facility] st Contact Info) Description 07/18/2025 Telephone [facility] [address] [place], [place] [phone] Rosina Henley, [facility] [address] [place], [place] [phone] Insurance Social History Tobacco Use Types Packs/Day Years [...] encounter Miscellaneous Notes * Telephone Encounter - Hayde Singh - 07/18/2025 12:26 PM EDT Patient only has HSN Partial, aware HSN will not cover any referral. documented in this encounter Plan of Treatment Upcoming Encounters Date Type Department Care Team (Late st Contact Info) Description 08/15/2025 11:30 AM EST Office Visit [facility] [address] [place] [address] Rosina Henley CNM [address] [place] [address] documented as of this encounter Visit Diagnoses Not on filedocumented in this encounter Additional Health Concerns Assessment Noted Time PHQ-9 Depression Total Score: 4 05/29/20 12:06 PM EDT documented as of this encounter Care Teams Sleep Tech Relationship Specialty Start Date End Date Maribel Donaldson MD [address] [place] [address] PCP - General Family Medicine 05/13/25 documented as of this encounter
--- OUTSIDE RECORDS SUMMARY | 2025-07-18 19:53 | XMS_ITS | Clinical Summary ---
Author Organization [facility] Address [address] [place] [address] Phone Care Team Providers Care Property Accountant Name Role Phone Geena Ravi MD Primary Care Provider [phone] Allergies No known active allergies Medications Etonogestrel [...] 05/07/2025 Telephone [facility] [address] [address] Bea Brunner LPN nexplanon removal concern 05/02/2025 Telephone [facility] - [address] [place] [address] Myranda Lemus LPN ED Visits 04/28/2025 Telephone [facility] - [address] [address] Geena Ravi MD Discharge Follow-Up - ED 04/26/2025 8:13 AM EDT - 04/26/2025 12:46 PM EDT Emergency [facility] - Patient Ping from Last 3 [...] HIV Screening 2020 Hepatitis C Screening 2023 COVID-19 Vaccine ( season) 2025 03/23/2021, 02/27/2021 DTaP,Tdap,and Td Vaccines [...] and Gonorrhea Screening Completed 12/05/2024, 03/26/2024, 02/14/2024 Influenza Vaccines Completed 07/04/2025, 0 06/13/2024, 07/29/2022, Additional history exists Pneumococcal Vaccine Aged Out No long er eligible based on patient's age to complete this topic Procedures * Due to [place] law, this organization might not be sharing sensitive test results. Procedure Name Priority Date/Time Associated Diagnosis Comments CHLAMYDIA AND GONORRHEA, AMPLIFIED Routine 12/05/2024 4:23 PM EST Encounter for initial prescription of Nexplanon from Last 3 Months or Most Recently Relevant to Health Maintenance Results * Due to [place] law, this organization might not be sharing sensitive test results. * Chlamydia and Gonorrhoea, Amplified (12/05/2024 4:23 PM EST) C trach TUNG Negative Negative [facility] N gonorrhoeae TUNG Negative Negative [facility] Urine (Urine) 12/05/2024 4:2 3 PM EST 12/05/2024 Comment:Urine URINE Narrative [facility] - 12/06/2024 4:06 PM EST Performed at: 01 - [facility] [address], [address], [place] [id number] [employer] Folder And Feeder: Remberto Waters MD, Phone: [phone] us Rob [facility] MICROBIOLOGY - GENERAL ORD ERABLES Final Result [facility] [address] [place] [address] from Last 3 Months or Most Recently Relevant to Health Maintenance Care Teams Property Accountant Relationship Specialty [place] [address] [place] [address] ERLIN Merino [address] PCP - General Pediatrics 07/19/22
--- OUTSIDE RECORDS SUMMARY | 2025-07-18 19:53 | XMS_ITS | Encounter Summary ---
Author Organization [employer] Address [address] [facility] 7t [place] [address] Care Team Providers Care Graduate Recruiter Name Role Phone Maribel Donaldson MD Primary Care Provider [phone]- [phone] Encounter Details Date Type Department Care Team (Latest Contact Info) Description 07/18/2025 Travel Social History Tobacco Use Types Packs/Day [...] Description 08/15/2025 11:30 AM EST Office Visit [facility] MEDICINE [address] [place] [address] Rosina Henley CNM [address] [place] [address] documented as of this encounter Visit Diagnoses Not on filedocumented in this encounter Additional Health Concerns Assessment Noted Time PHQ-9 Depression Total Score: 4 05/29/20 25 12:06 PM EDT documented as of this encounter Care Teams Graduate Recruiter Relationship Specialty Start Date End Date Maribel Donaldson MD [address] [place] [address] PCP - General Family Medicine 05/13/25 documented as of this encounter
--- OUTSIDE RECORDS SUMMARY | 2025-07-18 19:53 | XMS_ITS | Encounter Summary ---
Author Organization [employer] Address [address] [facility] 7[address] [place] [address] Care Team Providers Care Coreroom Foundry Laborer Name Role Phone Maribel Donaldson MD Primary Care Provider [phone]- [phone] Reason for Visit * Reason Onset Date Comments chart prep 07/17/2025 Encounter Details Date Type Department Care Team ([facility] st Contact Info) Description 07/17/2025 Telephone [facility] MEDICINE [address] [place], [place] [phone] Rosina Henley, [facility] [address] [place], [place] [phone] chart prep Social History Tobacco Use Types [...] encounter Miscellaneous Notes * Telephone Encounter - Chiqui Kaminski [place] - 07/17/2025 3:18 PM EDT Chart Prep Labs: not applicable Images: not applicable Screenings: Not Applicable Vaccines due: Not Applicable Referrals: Not Applicable Overdue care gaps: LMP documented in this encounter Plan of Treatment Upcoming Encounters Date Type Department Care Team (Late st Contact Info) Description 08/15/2025 11:30 AM EST Office Visit [facility] MEDICINE [address] [place] [address] Rosina Henley CNM [address] [place] [address] documented as of this encounter Visit Diagnoses Not on filedocumented in this encounter Additional Health Concerns Assessment Noted Time PHQ-9 Depression Total Score: 4 05/29/20 12:06 PM EDT documented as of this encounter Care Teams Coreroom Foundry Laborer Relationship Specialty Start Date End Date Maribel Donaldson MD [address] [place] [address] PCP - General Family Medicine 05/13/25 documented as of this encounter
--- OUTSIDE RECORDS SUMMARY | 2025-07-18 19:53 | XMS_ITS | Clinical Summary ---
Author Organization [facility] Address [address] [place] [address] Phone Care Team Providers Care Loaf Counter Name Role Phone Geena Ravi MD Primary Care Provider Allergies Active Allergy Reactions Criticality Noted Date [...] EDT - 04/30/2025 9:18 PM EDT Emergency [facility] Emergency [address] [place] [address] Franco Clark MD Nausea and vomiting, unspecified vomiting type (Primary Dx); Chronic gastritis without bleeding, unspecified gastritis type Discharge Disposition: Home or Self Care 04/27/2025 11:45 PM EDT - 04/28/2025 2:58 AM EDT [facility] Emergency [address] [place] [address] Micheline Iqbal MD Acute nonintractable headache, unspecified [...] History Growth Chart Information Age Height Weight Piphjw-ajr-yzya th Percentile BMI Percentile Head Circum Head Circum Percentile Date 19 years 157.5 cm (5' 2 ) 68 kg (150 lb) 88.67%* 2024 19 years 157.5 cm (5' 2 ) 68 kg (150 lb) 88.68%* 2024 19 years 157.5 cm (5' 2 ) 63.5 kg (140 lb) 82.54%* 2024 * [facility] (Girls, 2-20 Years) Last Filed Vital Signs [...] manually resulted (04/30/2025 7:14 PM EDT) Pathologist [facility] [place] HCG, Ur POC Negative Negative POC hCG Int QC Pass? Yes Yes Urine Urine specimen obtained by clean catch procedure / Unknown 04/30/2025 7:14 PM EDT us Jasvir Mitchell MD POINT OF CARE TEST ENTER/ED IT ORDERABLES Final Result * (ABNORMAL) CBC auto differential (04/30/2025 7:04 PM EDT) Only the most recent of2 resultswithin the time period is included. [facility] WBC 9.2 4.8 - 10.8 K/mcL LAB [...] g/dL LAB HEMETOLOGY [facility] RDW 15.4(H) 11.0 - 15.0 % LAB HEMETOLOGY METHOD 04/30/2025 7:25 PM EDT [facility] Platelets 370 130 - 400 K/mcL LAB HEMETOLOGY METHOD 04/30/2025 7:25 [facility] MPV 9.7 7.0 - 11.0 FL LAB HEMETOLOGY METHOD 04/30/2025 7:25 [facility] NRBC 0.0 <1.0 % LAB HEMETOLOGY METHOD 04/30/2025 7:25 PM EDT [facility] NRBC Absolute 0.00 <0.10 K/mcL LAB HEMETOLOGY METHOD 04/30/2025 7:25 [facility] Neutrophils Relative 67.7 % LAB HEMETOLOGY METHOD 04/30/2025 7:25 [facility] Lymphocytes Relative 19.3 % LAB HEMETOLOGY METHOD 04/30/2025 7:25 PM EDT [facility] Monocytes Relative 9.9 % LAB HEMETOLOGY METHOD 04/30/2025 7:25 [facility] Eosinophils Relative 2.3 % LAB HEMETOLOGY METHOD 04/30/2025 7:25 [facility] Basophils Relative 0.5 % LAB HEMETOLOGY METHOD 04/30/2025 7:25 [facility] Immature Granulocytes Relative 0.3 % [...] LAB Eosinophils Absolute 0.21 0.00 - 0.50 K/[facility] LAB HEMETOLOGY METHOD 04/30/2025 7:25 PM [...] Mitchell MD LAB BLOOD ORDERABLES Final Result [facility] [address] [place] [address], * Lipase (04/30/2025 7:04 PM EDT) Lipase 33 13 - 75 unit/L LAB CHEMISTRY METHOD 04/30/2025 7:45 PM EDT [facility] Blood Venous blood specimen / Unknown Venipuncture / Unknown 04/30/2025 7:04 PM EDT 04/30/2025 7:20 PM EDT us Jasvir Mitchell MD LAB BLOOD ORDERABLES Final Result [facility] [address] [place] [address], * Comprehensive metabolic panel (04/30/2025 7:04 PM EDT) Only the most recent of2 resultswithin the time period is included. Sodium 139 133 - 145 mmol/L LAB CHEMISTRY METHOD 04/30/2025 7:47 PM [facility] Potassium 3.9 3.5 - 5.5 mmol/L LAB CHEMISTRY METHOD 04/30/2025 7:47 PM [facility] Chloride 104 96 - 110 mmol/L LAB CHEMISTRY METHOD 04/30/2025 7:47 PM [facility] CO2 26 21 - 32 mmol/L LAB CHEMISTRY METHOD 04/30/2025 7:47 PM [facility] Anion Gap 9 3 - 11 LAB CHEMISTRY METHOD 04/30/2025 7:47 PM [facility] Glucose 83 70 - 100 mg/dL LAB CHEMISTRY METHOD 04/30/2025 7:47 PM [facility] BUN 11 5 - 25 mg/dL LAB CHEMISTRY METHOD 04/30/2025 7:47 PM [facility] Creatinine 0.97 0.50 - 1.10 mg/dL LAB CHEMISTRY METHOD 04/30/2025 7:47 PM [facility] eGFR 87 >=60 mL/min/1. 73m2 LAB CHEMISTRY METHOD 04/30/2025 7:47 PM [facility] Comment:Calculation based on the Chronic Kidney Disease Epidemiology Collaboration (CKD-EPI) equation refit without adjustment for race. BUN/Creatinine Ratio 11.3 LAB CHEMISTRY METHOD 04/30/2025 7:47 PM [facility] Calcium 10.0 8.5 - 10.5 mg/dL [...] g/dL LAB CHEMISTRY METHOD 04/30/2025 7:47 PM [facility] Albumin 4.3 3.2 - 5.0 g/dL LAB CHEMISTRY METHOD 04/30/2025 7:47 PM [facility] Total Bilirubin 0.3 0.0 - 1.4 mg/dL LAB CHEMISTRY METHOD 04/30/2025 7:47 PM T [facility] Blood Venous blood specimen / Unknown Venipuncture / Unknown 04/30/2025 7:04 PM EDT 04/30/2025 7:20 PM EDT us Jasvir Mitchell MD LAB BLOOD ORDERABLES Final Result [facility] [address] [place] [address], * (ABNORMAL) Urinalysis with reflex microscopic and culture (04/30/2025 6:58 PM EDT) Only the most recent of2 resultswithin the time period is included. Specific [place] Urine 1.014 1.003 - 1.030 LAB URINALYSIS - AUTOMATED METHOD 04/30/2025 7:28 PM EDT [facility] pH, Urine 6.0 5.0 - 8.0 pH LAB URINALYSIS - AUTOMATED METHOD 04/30/2025 7:28 PM [facility] Leukocytes, Urine Negative Negative LAB URINALYSIS - AUTOMATED METHOD 04/30/2025 7:28 PM [facility] Nitrite, Urine Negative Negative LAB URINALYSIS - AUTOMATED METHOD 04/30/2025 7:28 PM [facility] Protein, Urine 30(A) <=Trace mg/dL LAB URINALYSIS - AUTOMATED METHOD 04/30/2025 7:28 PM [facility] Glucose, Urine Negative Negative mg/dL LAB URINALYSIS - AUTOMATED METHOD 04/30/2025 7:28 PM [facility] Ketones, Urine Negative Negative mg/dL LAB URINALYSIS - AUTOMATED METHOD 04/30/2025 7:28 PM [facility] Urobilinogen , Urine 0.2 0.2 - 1.0 mg/dL LAB URINALYSIS - AUTOMATED METHOD 04/30/2025 7:28 PM [facility] Bilirubin, Urine Negative Negative LAB URINALYSIS - AUTOMATED METHOD 04/30/2025 7:28 PM [facility] Blood, Urine Moderate(A) Negative LAB URINALYSIS - AUTOMATED METHOD 04/30/2025 7:28 PM [facility] RBC, Urine 3.7 0 - 4 /HPF LAB URINALYSIS - AUTOMATED METHOD 04/30/2025 7:28 PM [facility] WBC, Urine 0.8 0 - 4 /HPF LAB URINALYSIS - AUTOMATED METHOD 04/30/2025 7:28 PM [facility] Squamous Epithelial, Urine 36 0 - 60 /LPF LAB URINALYSIS - AUTOMATED METHOD 04/30/2025 7:28 PM [facility] Bacteria, Urine Negative Negative /HPF LAB URINALYSIS - AUTOMATED METHOD 04/30/2025 7:28 PM [facility] Hyaline Casts, Urine 0.4 0 - 3 /LPF LAB URINALYSIS - AUTOMATED METHOD 04/30/2025 7:28 PM EDT [facility] Urine Urine specimen obtained by clean catch procedure / Unknown Non-blood Collection / Unknown 04/30/2025 6:58 PM EDT 04/30/2025 7:20 PM EDT Jasvir Mitchell MD LAB URINE ORDERABLES Final Result Performing Organization Address [facility]/ZIP Co de Phone Number [facility] [address] [place] [address], [place] [phone] * Soriano urine culture tube (04/30/2025 6:58 [...] URINE ORDERABLES Final Result Performing Organization Address [facility] Co de Phone Number [facility] [address] [place] [address], [place] [phone] * CT Head wo Contrast (04/28/2025 1:28 [...] Res ult [facility] [address] [place] [address], * Magnesium (04/28/2025 12:16 AM EDT) Magnesium 2.0 1.9 - 2.6 mg/dL LAB CHEMISTRY METHOD 04/28/2025 1:16 AM EDT [facility] Blood Venous blood specimen / Unknown Venipuncture / Unknown 04/28/2025 12:16 AM EDT 04/28/2025 12:47 AM EDT us Micheline Iqbal MD LAB BLOOD ORDERABLES Final Res ult [facility] [address] [place] [address], from Last 3 Months Insurance MEDICAID - [place] Care Teams Loaf Counter Relationship Specialty Start Date End Date Geena Ravi MD [address] [place] [address] PCP - General Pediatrics 04/27/25
--- OUTSIDE RECORDS SUMMARY | 2025-07-18 19:53 | XMS_ITS | Encounter Summary ---
Author Organization [employer] Address [address] [facility] 7 [place] [address] Care Team Providers Care Imager Name Role Phone Maribel Donaldson MD Primary Care Provider [phone]- [phone] Reason for Visit * Reason Onset Date Comments insurance posting 03/01/2024 Encounter Details Date Type Department Care Team (Late Contact Info) Description 03/01/2024 Telephone [facility] ADULT DENTAL [address] [place] [address] Jessica Ramos DDS [address] [place] [address] insurance posting Social History Tobacco Use Types [...] Department Care Team (Late Contact Info) Description 08/15/2025 11:30 AM EST Office Visit [facility] MEDICINE [address] [place] [address] Rosina Henley CNM [address] [place], [place] [phone] documented as of this encounter Visit Diagnoses Not on filedocumented in this encounter Care Teams Imager Relationship Specialty Start Date End Date Maribel Donaldson MD [address] [place] [address] PCP - General Family Medicine 05/13/25 documented as of this encounter
--- OUTSIDE RECORDS SUMMARY | 2025-07-18 19:54 | XMS_ITS | Clinical Summary ---
Author Organization [email or web address] Address [address] [facility] [address] [place] [address] Care Team Providers Care Plastic Printer Name Role Phone Maribel Donaldson MD Primary Care Provider [phone] Allergies Active Allergy Reactions Criticality Noted Date Comments Latex Swelling 02/21/2025 Other Reaction(s): Swelling of labia Medications benzoyl peroxide 5 % gelIndications: Cystic acne Apply topically 2 times daily. 60 g 2 5 07/04/20 26 Active cholecalciferol (Vitamin D-3) 50 MCG (1999 UT) capsuleIndicati ons:Vitamin D deficiency Take 1 capsule (50 mcg) by mouth Once per day. 90 capsule 3 5 Active levonorgestrel (Plan B) 1.5 MG tabletIndicatio ns:Family planning Take 0.5 tablets (0.75 mg) by mouth every 12 (twelve) hours for 1 day. 1 tablet 5 07/05/20 25 Hospital, Clinic, or Other Facility Administered Medication Ordered Dose Route Frequency Start Date End Date Status lidocaine 2 % gelIndications:Encoun ter for initial insertion of intrauterine contraceptive device TOP As needed 07/18/2025 Acti ve ibuprofen tablet 400 mgIndications:Family planning 400 mg PO Once 07/18/2025 07/18/2025 Ended copper (Paragard) IUDIndications:Encoun ter for initial insertion of intrauterine contraceptive device IU Once PRN Procedure 07/18/2025 07/18/2025 Ended Active Problems Problem Noted Date Diagnosed Date Other specified health status 05/29/2025 Overview (05/29/2025): -next comprehensive annual evaluation due after 05/29/26 -eye care facilitated by [facility] -dental home is in [facility] proxy filed 05/29/25 Assessment & Plan (06/06/2025 10:43 AM EDT): -next comprehensive annual evaluation due after 05/29/26 -eye care facilitated by [facility] -dental home is in [facility] proxy filed 05/29/25 Hx of scoliosis 05/29/2025 Overview (06/06/2025): Dx age 17, seen at [facility] with Dr. Starla Bob MD X rays done at [facility], scoliosis stable. PT referral placed and recommended follow up prn for stable scoliosis. Assessment & Plan (06/06/2025 10:43 AM EDT): Dx age 17, seen at [facility] with Dr. Starla Bob MD X rays done at [facility], scoliosis stable. PT referral placed and [...] standing desk via medical records -notes from [facility] requested 05/29/25 see scoliosis dx Assessment & Plan (06/06/2025 10:43 AM EDT): Likely musculoskeletal. Non-focal, normal motor exam without neurological deficits. No back pain red-flags: bowel/bladder incontinence, IVDU, urinary retention, saddle anesthesia, and significant motor deficits. -Recommend continued topicals and lidocaine patch prn. -Physical therapy referral placed 05/29/25 -she will request standing desk via medical records -notes from [facility] requested 05/29/25 see scoliosis dx Family [...] Encounters Date Type Department Care Team Description 07/18/2025 1:15 PM EDT Procedure Visit [address] [address] Rosina Henley CNM Encounter for initial insertion of intrauterine contraceptive device (Primary Dx); Family planning; Vaginal discharge; Urinary symptom or sign 07/18/[address] [address] Rosina Henley CNM Insurance 07/18/2025 Travel 07/17/[address] [address] Rosina Henley CNM chart prep 07/04/2025 9:45 AM EDT Office Visit [address] [address] Maribel Donaldson MD Cystic acne (Primary Dx); Family planning; Encounter for immunization; Vitamin D deficiency; Transaminitis 07/04/2025 Travel 07/03/[address] [address] Maribel Donaldson MD chart prep 06/12/2025 Telephone [facility] WALK-IN [address] 05/29/2025 11:30 AM EDT Office Visit [address] [address] Maribel Donaldson MD Chronic midline thoracic back pain (Primary Dx); Hx of scoliosis; Dietary counseling; Exercise counseling; Abnormal menses; Family planning; Routine screening for STI (sexually transmitted infection); Screening cholesterol level; Other specified health status 05/29/2025 Travel 05/13/2025 5:40 PM EDT Office Visit [facility] [address] [address] Ana Maede MD Cystic acne vulgaris (Primary Dx) 05/13/2025 Travel 05/07/2025 5:40 PM EDT Office Visit [facility] [address] [address] Maribel Donaldson MD Family planning (Primary Dx); Routine screening for STI (sexually transmitted infection); Nexplanon removal 05/07/2025 Telephone [facility] [address] [address] Maribel Donaldson MD Appointment Request (Patient needs [...] Mass Index 29.12 07/18/2025 1:19 PM EDT Plan of Treatment Upcoming Encounters Date Type Department Care Team (Late st Contact Info) Description 08/15/2025 11:30 AM EST Office Visit [facility] MEDICINE [address], [place] [phone] Rosina Henley CNM [address] [place] [address] Health Maintenance Due Date Last Done Comments Dental Oral Exam 2005 Dental Prophylaxis 2005 Dental X-Ray: Bitewings 2005 Fluoride Varnish 01/02/2026 07/04/2025 Alcohol/Substance Use Screening 05/29/2026 05/29/2025 Depression Screening 05/29/2026 05/29/2025, 05/29/20 25 Disability Screening 05/29/2026 05/29/2025 SDOH Screening 05/29/2026 05/29/2025 COVID-19 Vaccine ( season) 2026 03/23/2021, 02/27/2021 Postponed from 06/03/2025 (Patient Refused) Chlamydia and Gonorrhea Screening 07/04/2026 07/04/2025, 05/07/2025, 12/05/2024, Additional history exists Family Planning (PISQ) 07/18/2026 07/18/2025 Tobacco Screening 07/18/2026 07/18/2025 Dental X-Ray: Full Mouth 03/02/2027 03/01/2024 DTaP/Tdap/Td [...] 11/22/2006 Hepatitis A Vaccines Completed 12/20/2017, 11/29/19 HPV Vaccines Completed 07/21/2018, 07/04, 09/19/2015 Meningococcal [...] 3: 52 PM EDT Vaginal discharge POCT URINALYSIS DIPSTICK Routine 07/18/2025 1:33 PM EDT Urinary symptom or sign POCT , URINE Routine 07/18/2025 1:33 PM EDT Family planning IUD MANAGEMENT Routine 07/18/2025 1:15 PM EDT Encounter for initial insertion of intrauterine contraceptive device POCT , URINE Routine 07/04/2025 10:31 AM EDT Family planning CHLAMYDIA/N. GONORRHOEAE RNA, TMA, UROGENITAL Routine 07/04/2025 10:28 AM EDT Family planning [place] APPLICATION TOPICAL FLUORIDE VARNISH BY [facility] Routine [...] Routine screening for STI (sexually transmitted infection) [place] REMOVAL NON-BIODEGRADABLE DRUG DELIVERY IMPLANT Routine 05/07/2025 6:07 PM EDT Family planning Routine screening for STI (sexually transmitted infection) Nexplanon removal PANORAMIC RADIOGRAPHIC IMAGE Routine 03/01/2024 11:30 AM EDT Impacted tooth from Last 3 Months or Most Recently Relevant to Health Maintenance Results * POCT fern test, vaginal fluid manually resulted (07/18/2025 3:52 PM EDT) VERO Prep Negative Comment:pH 4.5, neg whiff, n eg clue, neg trich, neg yeast, neg wbc Vaginal Fluid Vaginal structure / Unknown 07/18/2025 3:52 PM EDT Rosina Henley CNM POINT OF CARE TEST ENTER/ EDIT ORDERABLES Final Result * POCT , urine manually resulted (07/18/2025 1:33 PM EDT) Only the most recent of2 resultswithin the time period is included. Preg Test, Ur Negative Negative, Indeterminate, None Detected, Invalid, Specimen unsatisfactory for evaluation, Weakly Positive, 2+ QC Media Lot # [id number] Lot# Expiration Date [id number] Urine 07/18/2025 1:33 PM EDT Rosina SMITH POINT OF CARE TEST ENTER/ EDIT ORDERABLES Final Result * POCT urinalysis dipstick manually resulted (CPT 33597) (07/18/2025 1:33 PM EDT) Color, UA Yellow Clarity, UA Clear Glucose, UA Negative Bilirubin, UA Negative Ketones, UA Negative Spec Grav, UA 1.020 Blood, UA Negative Negative, None Detected pH, UA 7.0 Protein, UA Negative Urobilinogen, UA 0.2 Leukocytes, UA Negative Negative, Rare, Trace Nitrite, UA Negative Negative, None Detected QC Media Lot # [id number] Lot# Expiration Date [id number] Urine (Urine, Random) 07/18/2025 1:33 PM EDT Rosina Henley CNM POINT OF CARE TEST ENTER/ EDIT ORDERABLES Final Result * IUD Management (07/18/2025 1:15 PM EDT) Narrative Rosina Henley CNM - 07/18/2025 1:15 PM EDT Rosina Henley CNM 07/18/2025 3:53 PM IUD Management Performed by: Rosina Henley CNM Authorized by: Rosina Henley CNM Procedure: IUD insertion Consent obtained by patient, parent, or legal power of business attorney - including discussion of procedure risks [...] CNM IN CLINIC/BEDSIDE ORDERAB LES Final Result * Chlamydia/N. Gonorrhoeae RNA, TMA, Vagina (07/04/2025 10:28 AM EDT) Only the most recent of2 resultswithin the time period is included. CT PCR NOT DETECTED Not Detect. [facility] Comment:A not detected test result does [...] psychologicalconsequences. NG PCR NOT DETECTED Not Detect. [facility] Comment:A not detected test result does [...] or psychologicalconsequences. Swab Vaginal structure / Unknown 07/04/2025 10:28 AM EDT 07/04/2025 6:22 PM EDT Maribel Donaldson MD LAB MICROBIOLOGY - GENERAL ORDERABLES Final Result [facility] [address] [place] [phone] * [place] APPLICATION TOPICAL FLUORIDE VARNISH BY [facility]/QHP (07/04/2025 9:42 AM EDT) Liz Oconnell [place] - 07/04/2025 9:42 AM EDT Liz [...] 4:08 PM EDT) Syphilis Screen Nonreactive Nonreactive [facility] Blood Venous blood specimen / Unknown 07/03/2025 4:08 PM EDT 07/03/2025 6:03 PM EDT Maribel Donaldson MD LAB BLOOD ORDERABLES Final Result [facility] [address] [place] [address] [phone] * (ABNORMAL) Vitamin D, 25-Hydroxy, Total, Immunoassay (07/03/2025 4:08 PM EDT) Vitamin D 25-OH Total 26.6(L) >30 ng/mL [facility] Comment: Health Based Reference Values*< 20 ng/mL Ictacblyv94-38 ng/mL Insufficient> 30 ng/mL Sufficient*Constance BOWEN. N [...] BLOOD ORDERABLES Final Result Performing Organization Address [facility]/ZIP Co de Phone Number [facility] [address] [place] [address] [phone] * TSH W/Reflex to FT4 (07/03/2025 4:08 PM EDT) TSH reflex Free T4 1.00 0.32 - 4.0 uIU/mL [facility] Blood Venous blood specimen / Unknown 07/03/2025 4:08 PM EDT 07/03/2025 6:03 PM EDT us Maribel Donaldson MD LAB BLOOD ORDERABLES Final Result [facility] [address] [place] [phone] [phone] * (ABNORMAL) CBC auto differential (07/03/2025 4:08 PM EDT) White Blood Count 8.3 4.8 - 10.8 X10*3/uL [facility] Red Blood Count 4.59 4.20 - 5.50 X10*6/uL [facility] Hemoglobin 12.1 12.0 - 16.0 g/dl [facility] Hematocrit 37.8 37.0 - 47.0 % [facility] Mean Corpuscular Volume 82.4 80.0 - 98.0 fL [facility] Mean Corpuscular Hemoglobin 26.4(L) 27.0 - 33.0 pg [facility] Mean Corpuscular HGB Conc 32.0 31.0 - 35.0 g/dl [facility] Red Cell Distribution Width 14.9 11.0 - 16.0 % [facility] Platelet Count 400 160 - 400 X10*3/uL [facility] Mean Platelet Volume 10.9 9.4 - 12.3 fL [facility] Neutrophils Percent Auto 61.9 45 - 73 % [facility] Imm Gran Pct Auto 0.2 0.0 - 0.4 % [facility] Lymphocytes Percent Auto 23.4 20 - 40 % [facility] Monocytes Percent Auto 8.2 2 - 11 % [facility] Eosinophils Percent Auto 5.5(H) 0 - 4 % [facility] Basophils Percent Auto 0.8 0 - 2 % [facility] NRBC Pct Auto 0.0 0.0 - 0.2 /100WBC [facility] Neutrophils Absolute Auto 5.1 2.0 - 8.3 x10*3/uL [facility] Imm Gran Abs Auto 0.02 0.00 - 0.03 X10*3/uL [facility] Lymphocytes Absolute Auto 1.9 1.2 - 4.9 X10*3/uL [facility] Monocytes Absolute Auto 0.7 0.1 - 1.2 X10*3/uL [facility] Eosinophils Absolute Auto 0.5(H) 0.0 - 0.4 X10*3/uL [facility] Basophils Absolute Auto 0.1 0.0 - 0.2 X10*3/uL [facility] NRBC Abs Auto 0.000 0.0 - 0.012 X10*3/uL [facility] Blood Venous blood specimen / Unknown 07/03/2025 4:08 PM EDT 07/03/2025 6:03 PM EDT Maribel Donaldson MD LAB BLOOD ORDERABLES Final Result Performing Organization Address [facility] Co de Phone Number [facility] [address] [place] [phone] * Hepatitis C Antibody with Reflex to HCV, RNA, Quantitative, Real-Time PCR (07/03/2025 4:08 PM EDT) Pathologist [facility] Hepatitis C Antibody Nonreactive Nonreactive [facility] Comment:Antibodies to HCV no t detected; does not exclude early acuteHCV infection. Blood Venous blood specimen / Unknown 07/03/2025 4:08 PM EDT 07/03/2025 6:03 PM EDT Maribel Donaldson MD LAB BLOOD ORDERABLES Final Result Performing Organization Address [facility] Co de Phone Number [facility] [address] [place] [phone] * HIV-1/2 Antigen and Antibodies, Fourth Generation, with Reflexes (07/03/2025 4:08 PM EDT) Pathologist [facility] HIV AB/AG Nonreactive Nonreactive [facility] Comment:HIV-1 p24 Ag and/or HIV-1/HIV-2 Ab not detected.A test result that is nonreactive does not exclude thepossibility of exposure to or infection with HIV-1 and/orHIV-2. Nonreactive results in this assay for individualswith prior exposure to HIV-1 and/or HIV-2 may be due toantigen and antibody levels that are below the limit ofdetection of this assay.The [facility] HIV Ag/Ab Combo assay result andsupplemental assay results should be interpreted inconjunction with the patient's clinical presentation,history and other laboratory results. If the results areinconsistent with clinical evidence, additional testing issuggested to confirm the result. Blood Venous blood specimen / Unknown 07/03/2025 4:08 PM EDT 07/03/2025 6:03 PM EDT Maribel Donaldson MD LAB BLOOD ORDERABLES Final Result Performing Organization Address [facility]/ZIP Co de Phone Number [facility] [address] [place] [phone] * Magnesium (07/03/2025 4:08 PM EDT) [facility] Magnesium 1.9 1.6 - 2.6 mg/dL [facility] Blood Venous blood specimen / Unknown 07/03/2025 4:08 PM EDT 07/03/2025 6:03 PM EDT Maribel Donaldson MD LAB BLOOD ORDERABLES Final Result Performing Organization Address [facility]/ZIP Co de Phone Number [facility] [address] [place] [phone] * (ABNORMAL) Hepatic Function Panel (07/03/2025 4:08 PM EDT) Bilirubin, Total 0.2 0.0 - 1.0 mg/dL [facility] Bilirubin, Direct <0.2 0.0 - 0.5 mg/dL [facility] Aspartate Amino Transferase 46(H) 5 - 31 U/L [facility] Alanine Aminotransferase 42(H) 0 - 31 U/L [facility] Total Protein 7.7 6.5 - 8.0 g/dL [facility] Albumin Level 4.6 3.5 - 5.0 g/dL [facility] Alkaline Phosphatase 101 39 - 117 U/L [facility] Blood Venous blood specimen / Unknown 07/03/2025 4:08 PM EDT 07/03/2025 6:03 PM EDT Maribel Donaldson MD LAB BLOOD ORDERABLES Final Result [facility] [address] [place] [phone] * Lipid Panel, Standard (07/03/2025 4:08 PM EDT) Triglycerides 76 <150 mg/dL [facility] Comment:Desirable Triglyceri de: less than 90 mg/dLBorderline High Triglyceride: 90-129 mg/dLHigh Triglyceride: greater than 130 mg/dL Cholesterol 156 <200 mg/dL [facility] Comment:Desirable Cholestero l: less than 170 mg/dLBorderline High Cholesterol: 170-199 mg/dLHigh Cholesterol: greater than 200 mg/dL LDL Cholesterol Calculated 91 <100 mg/dL [facility] Comment:Desirable LDL: less than 110 mg/dLBorderline LDL: 110-129 mg/dLHigh LDL: greater than or equal to 130 mg/dL HDL Cholesterol 50 >40 mg/dL [facility] Comment:Desirable HDL: great er than 45 mg/dLBorderline HDL: 40-45 mg/dLLow HDL: less than 40 mg/dL Note: This HDL assay may give artificially low results in patients with liver disease. Blood Venous blood specimen / Unknown 07/03/2025 4:08 PM EDT 07/03/2025 6:03 PM EDT Maribel Donaldson MD LAB BLOOD ORDERABLES Final Result Performing Organization Address City/[facility] de Phone Number [facility] [address] [place] [phone] * (ABNORMAL) Basic Metabolic Panel (07/03/2025 4:08 PM EDT) Sodium 142 135 - 145 mmol/L [facility] Potassium 4.0 3.3 - 5.1 mmol/L [facility] Chloride 107 96 - 108 mmol/L [facility] Carbon Dioxide 28 22 - 29 mmol/L [facility] Anion Gap 11(L) 12 - 20 [facility] Urea Nitrogen (BUN) 13 9 - 16 mg/dL [facility] Creatinine, Serum 0.95 0.5 - 1.4 mg/dL [facility] Estimated Glomerular Filt Rate >60 [facility] Comment:Chronic Kidney Disea se: Estimated GFR < 60 mL/min/1.24b3Ybpiby Kidney Disease: Estimated GFR < 15 mL/min/1.73m2 Glucose 84 60 - 115 mg/dL [facility] Calcium 9.3 8.4 - 10.2 mg/dL [facility] Blood Venous blood specimen / Unknown 07/03/2025 4:08 PM EDT 07/03/2025 6:03 PM EDT us Maribel Donaldson MD LAB BLOOD ORDERABLES Final Result Performing Organization Address [facility] de Phone Number [facility] [address] [place] [phone] * [place] REMOVAL NON-BIODEGRADABLE DRUG DELIVERY IMPLANT (05/07/2025 6:07 [...] Final Result from Last 3 Months Insurance HS PARTIAL Advance Directives Documents on File Type Date Recorded Patient Lockstitch Waistline Joiner Expl anation Advance Directives and Living Will 05/30/2025 Health Care Proxy 05/29/25 Care Teams Plastic Printer Relationship Specialty Start Date End Date Maribel Donaldson MD [address] [place] [phone] PCP - General Family Medicine 05/13/25
[2025-07-19 04:34] LABS: Bacterial Vaginosis PCR NEGATIVE (Negative); Candida Group PCR NOT DETECTED (Not Detect); Candida glab krusei PCR NOT DETECTED (Not Detect); Trichomonas vaginalis PCR NOT DETECTED (Not Detect)
== END 2025-07-18 18:26 | disposition home or self-care (01) ==
LOC: HO.HHCLNP 18:25
PROVIDERS: Visit Provider Advanced Practice Midwife
DX: Z20.2 Contact with and (suspected) exposure to infections with a predominantly sexual mode of transmission (principal); N89.8 Other specified noninflammatory disorders of vagina
CPT/HCPCS: 81515

== ENCOUNTER 2025-08-15 16:25 | Outpatient (REF) | payer OTHER, SELFPAY ==
--- OUTSIDE RECORDS SUMMARY | 2025-08-15 11:30 | XMS_ITS | Encounter Summary ---
Author Organization [employer] Address [address] [facility] 7[address] [place] [address] Care Team Providers Care Gsa Coordinator Name Role Phone Maribel Donaldson MD Primary Care Provider [phone]- [phone] Reason for Visit * Reason Comments Follow-up Encounter Details Date Type Department Care Team ([facility] st Contact Info) Description 08/15/2025 11:30 AM EST Office Visit [facility] MEDICINE [address], [place] [phone] Rosina Henley CN [address], [place] [phone] Checking of intrauterine device (Primary Dx); Abnormal uterine bleeding; Vaginal discharge Social History Tobacco Use Types Packs/Day Years [...] Access Q2 Not on file 05/29/2025 Comments No Intention Date Recorded No desire to become (finding) 1 10/15/2024 Sex and Gender Information Value Date Recorded Sex Assigned at Female 03/01/2024 9:55 AM EDT Legal Sex Female 9:52 AM EDT Gender Identity Female 03/01/2024 9:55 AM EDT Sexual Orientation Choose not to disclose 2023 9:55 AM EDT documented as of this encounter Last Filed Vital Signs Vital Sign Reading Time Taken Comments Blood Pressure 120/68 08/15/2025 11:38 AM EST Pulse 87 08/15/2025 11:38 AM EST Temperature 36.4 C (97.6 F) 08/15/2025 11:38 AM EST Respiratory Rate 16 08/15/2025 11:38 AM EST Oxygen Saturation 99% 08/15/2025 11:38 AM EST Inhaled Oxygen Concentration - - Weight 71.7 kg (158 lb) 08/15/2025 11:38 AM EST Height 157.5 cm (5' 2 ) 08/15/2025 11:38 AM EST Body Mass Index 28.9 08/15/2025 11:38 AM EST documented in this encounter Progress Notes * Rosina Henley CNM - 08/15/2025 11:30 AM EST Subjective Patient ID: Alex Flor is a 19 y.o. female who presents for IUD followup ParaGard inserted last month. Bled for about two weeks starting a few days after insertion . Had cramping off and on, which has largely resolved. Insertion was very painful and she feels traumatized from experience, nervous to have another pelvic exam. Notes some urinary odor and vaginal discharge.Not sexually active since IUD insertion due to concern about pain. Gonorrhea/Chlamydia/trichomonas/yeast/bacterial vaginosis neg from insertion visit. Review of Systems Genitourinary: Positive for vaginal discharge. Negative for menstrual problem and vaginal bleeding. Objective BP 120/68 (BP Location: Left arm, Patient Position: Sitting, BP Cuff Size: Adult) Pulse 87 Temp97.6 ??F (36.4 ??C) (Oral) Resp 16 Ht 5' 2 (1.575 m) Wt 158 lb (71.7 kg) LMP 07/22/2025 (Approximate) SpO2 99% BMI 28.90 kg/m?? Physical Exam Reticle Printer present: declines cartridge loader. Constitutional: Appearance: Normal appearance. Abdominal: Tenderness: There is no right CVA tenderness or left CVA tenderness. Genitourinary: General: Normal vulva. Labia: Right: No [...] fullness. Left: No mass, tenderness or fullness. Comments: IUD strings noted. Body of IUD nonpalpable Neurological: Mental Status: She is alert. Psychiatric: Mood and Affect: Mood normal. Behavior: Behavior normal. Assessment/Plan Diagnoses and all orders for this visit: Checking of intrauterine device test negative today. Discussed pros and cons of pelvic exam today. She decided to have pelvic exam for IUD check today and found it to be a painless experience. Reassured her of benign exam, strings seen. Discussed potential impact of trauma on sexual relationship and wellbeing, apologized for the experience she had during IUD insertion. She feels well today, declines consult. Pleaselet me know if she would like to revisit this in the future. May keep ParaGard for a total of 10 (possibly 12) years, remove any time prior to that. Abnormal uterine bleeding - POCT Urine - POCT Urinalysis Will observe. Trace blood on UA. If no menses in next week, will repeat UA and send culture. Vaginal discharge - Bacterial Vaginosis Panel Bacterial vaginosis swab sent. Will treat positive results. documented in this encounter Plan of Treatment Upcoming Encounters Date Type Department Care Team (Late st Contact Info) Description 08/16/2025 1:00 PM EST Office Visit [facility] ADULT DENTAL [address] [place] [address] 08/23/2025 2:15 PM EST Office Visit [facility] ADULT DENTAL [address] [place] [address] Carlitos, Vilma [address] [place] [address] Scheduled Orders Name Type Priority Associated Diagnoses Orde r Schedule Bacterial Vaginosis Panel Microbiology Routine Vaginal discharge Ordered: 08/15/2025 documented as of this encounter Procedures Procedure Name Priority Date/Time Associated Diagnosis Comments POCT URINALYSIS DIPSTICK Routine 08/15/2025 11:59 AM EST Abnormal uterine bleeding POCT , URINE Routine 08/15/2025 11:50 AM EST Abnormal uterine bleeding documented in this encounter Results * (ABNORMAL) POCT Urinalysis (08/15/2025 11:59 AM EST) Color, UA Yellow Clarity, UA Clear Glucose, UA Negative Bilirubin, UA Negative Ketones, UA Negative Spec Grav, UA 1.025 Blood, UA Positive(A) Negative, None Detected Comment:trace pH, UA 5.5 Protein, UA Negative Urobilinogen, UA 0.2 Leukocytes, UA Negative Negative, Rare, Trace Nitrite, UA Negative Negative, None Detected Appearance, UA clear QC Media Lot # [id number] Lot# Expiration Date ,026 Urine (Urine, Random) 08/15/2025 11:59 AM EST Rosina Henley CNM POINT OF CARE TEST ENTER/ EDIT ORDERABLES Final Result * POCT Urine (08/15/2025 11:50 AM EST) Preg Test, Ur Negative Negative, Indeterminate, None Detected, Invalid, Specimen unsatisfactory for evaluation, Weakly Positive, 2+ QC Media Lot # [id number] Lot# Expiration Date 1,[id number] Urine 08/15/2025 11:5 0 AM EST Rosina Henley CN POINT OF CARE TEST ENTER/ EDIT ORDERABLES Final Result documented in this encounter Visit Diagnoses Diagnosis Checking of intrauterine device- Primary Abnormal uterine bleeding Unspecified disorder of menstruation and other abnormal bleeding from female genital tract Vaginal discharge Leukorrhea, not specified as infective documented in this encounter Additional Health Concerns Assessment Noted Time PHQ-9 Depression Total Score: 4 05/29/20 25 12:06 PM EDT documented as of this encounter Care Teams Gsa Coordinator Relationship Specialty Start Date End Date Maribel Donaldson MD [address] [place] [address] PCP - General Family Medicine 05/13/25 documented as of this encounter
--- OUTSIDE RECORDS SUMMARY | 2025-08-15 18:52 | XMS_ITS | Encounter Summary ---
Author Organization [employer] Address [address] [facility] [address] [place] [address] Care Team Providers Care Boxing Trainer Name Role Phone Maribel Donaldson MD Primary Care Provider [phone]- [phone] Encounter Details Date Type Department Care Team (Latest Contact Info) Description 08/15/2025 Travel Social History Tobacco Use Types Packs/Day [...] Q2 Not on file 05/29/2025 Comments No Sex and Gender Information Value [...] 1:00 PM EST Office Visit [facility] ADULT DENTAL [address] [place] [address] 08/23/2025 2:15 PM EST Office Visit [facility] ADULT DENTAL [address] [place] [address] Vilma Urbina [address] [place] [address] documented as of this encounter Visit Diagnoses Not on filedocumented in this encounter Additional Health Concerns Assessment Noted Time PHQ-9 Depression Total Score: 4 05/29/20 25 12:06 PM EDT documented as of this encounter Care Teams Boxing Trainer Relationship Specialty Start Date End Date Maribel Donaldson MD [address] [place] [address] PCP - General Family Medicine 05/13/25 documented as of this encounter
--- OUTSIDE RECORDS SUMMARY | 2025-08-15 18:52 | XMS_ITS | Data Portability ---
Author Organization [place] [facility], All[facility] Address [address] [facility] [address] [place] [address] Care Team Providers Care Train Control Electronic Technician Name Role Phone MEEKRISH Referring Provider [phone] WILMAR SORIANO Primary Care Provider Assessment Encounter [...] . Imaging None recorded . Medication Orders [place] Saline Gel nasal spray 025 12/21/19 25 [facility]/Pharmacy #[id number], [address] [facility], [place], [address], 03/20/202 5 13:13:20 [place] Saline nasal gel 025 12/21/19 25 [facility]/Pharmacy #[id number], [address] [place], [address], 5 13:13:20 Patient TargetsNo targets recorded. Patient InstructionsNo instructions recorded. Reason for Referral None Reported. Problems Name Problem SNOMED Code Status Onset Date Resolution Date Notes Provider Name and Address Organization Details Recorded Time Headache 73499697 Active 2019 Headache; Note: Date Diagnosed : 03/14/2020 8:45 AM (R51) Not Available Replaced by [facility] 4 02:18:51 Palpitati ons 30328941 Active 2019 Palpitati ons; Note: Date Diagnosed : 03/14/2020 8:45 AM (R00.2) Not Available Replaced by [facility] 4 02:18:51 Abnormal auditory perceptio n 13023497 Active 2019 Other abnormal auditory perceptio ns, bilateral ; Note: Date Diagnosed : 03/14/2020 8:45 AM (H93.293) Not Available Replaced by [facility] 4 02:18:39 Dizziness and giddiness 130427058 Active 2019 Dizziness and giddiness ; Note: Date Diagnosed : 03/14/2020 8:45 AM (R42) Not Available Replaced by [facility] 4 02:19:04 Bilateral temporoma ndibular joint pain 45750204939 887622 Active 2021 Arthralgi a of bilateral temporoma ndibular joint; Note: Date Diagnosed : 01/18/2022 1:49 PM (M26.623) Not Available Replaced by [facility] 4 02:18:16 Bilateral earache 010277196 Active 2021 Otalgia, bilateral ; Note: Date Diagnosed : 01/18/2022 1:49 PM (H92.03) Not Available Replaced by [facility] 4 02:18:36 Referred otalgia 67609184 Active 2021 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 - [facility] 09:16:23 Problem Notes None recorded. Procedures Surgical History Date Name Laterality Status Provider Name and Address Organization Details Recorded Time Epistaxis Simple Nasal Cautery Right completed JOSR OLIVEIRA PA-C [address] [facility],[place] [address], [place], [address], [facility] - [facility] 12/20/2024 17:27:53 Imaging Results None recorded. [...] completed Not Available Not Available Not Available [place] Saline nasal gel Take 1 applicati on [...] completed Not Available Not Available Not Available [place] Saline Gel nasal spray Take 2 sprays [...] 12/20/2024 157.48 cm 24.7 kg/m2 78 % 84233.[address] [facility] 12/20/2024 09:16:59 Social History None recorded. Functional Status None recorded. Mental Status None recorded. Family History Nothing Reported. Medical History No medical history recorded. Gynecological HistoryNo gynecological history recorded. Obstetrics History GPAL:G 0 P 0 0 0 0 Past Encounters Encounter ID Performer Location Encounter Start Date Encounter Closed Date Diagnosis/Indication Diagnosis SNOMED-CT Code Diagnosis ICD10 Code Diagnosis IMO Codes Diagnosis Note [id number] JOSR OLIVEIRA PA-C [facility] [address] [address] 12/20/2024 09:11:55 12/20/2024 09:57:22 Anterior epistaxis 492519899 R04.0 Health Concerns Section Related Observation LastModified by Organization Detai ls LastModified Time None Recorded Concern Status LastModified by Organization Details LastModified Time None Recorded Advance Directives Directive None Recorded Payers Insurance Date Sequence Insurance Name Policy Number Policy Nava Covered Member ID Nava Member ID Guarantor Name 12/20/2024 1 [facility] - [facility]) CHILDACO Crystaliz Y Flor [id number] [employer] Flor Notes Date Note Type [...] history of bleeding disorder. VIVIAN PELAEZ MD [address] [place] [address], [place], [address], [place] [facility] 12/25/2024 12:58:36 OBGyn Episode No OBEpisode recorded.
--- OUTSIDE RECORDS SUMMARY | 2025-08-15 18:52 | XMS_ITS | Encounter Summary ---
Author Organization [employer] Address [address] [facility] 7[address] [place] [address] Care Team Providers Care Acquisition Advisor Name Role Phone Maribel Donaldson MD Primary Care Provider [phone]- [phone] Reason for Visit * Reason Onset Date Comments insurance posting 03/01/2024 Encounter Details Date Type Department Care Team (Late Contact Info) Description 03/01/2024 Telephone [facility] ADULT DENTAL [address] [place] [address] Jessica Ramos DDS [address] [place] [address] insurance posting Social History Tobacco Use Types [...] Department Care Team (Late Contact Info) Description 08/16/2025 1:00 PM EST Office Visit [facility] ADULT D[facility] [address] [place] [address] 08/23/2025 2:15 PM EST Office Visit [facility] ADULT D[facility] [address] [place] [address] Vilma Urbina [address] [place] [address] documented as of this encounter Visit Diagnoses Not on filedocumented in this encounter Care Teams Acquisition Advisor Relationship Specialty Start Date End Date Maribel Donaldson MD [address] [place] [address] PCP - General Family Medicine 05/13/25 documented as of this encounter
--- OUTSIDE RECORDS SUMMARY | 2025-08-15 18:52 | XMS_ITS | Clinical Summary ---
Author Organization [facility] Address [address] [place] [address] Phone Care Team Providers Care Reclamation Supervisor Name Role Phone Geena Ravi MD Primary Care Provider [phone] Allergies Active Allergy Reactions Criticality Noted Date [...] Note: Date Diagnosed: 03/14/2020 8:45 AM (R00.2) Immunizations Immunization Administration Dates Next Due DTaP [...] History Growth Chart Information Age Height Weight Phhuvg-hjy-nazq th Percentile BMI Percentile Head Circum Head Circum Percentile Date 19 years 157.5 cm (5' 2 ) 68 kg (150 lb) 88.67%* 2024 19 years 157.5 cm (5' 2 ) 68 kg (150 lb) 88.68%* 2024 19 years 157.5 cm (5' 2 ) 63.5 kg (140 lb) 82.54%* 2024 * [facility] (Girls, 2-20 Years) Last Filed Vital Signs [...] years old) 02/13/2025 02/14/2024, 12/21/2022 COVID-19 Vaccine (2024- season) 2025 03/23/2021, 02/27/2021 Influenza Vaccine (#1) [...] on patient's age to complete this topic Insurance MEDICAID - [place] Care Teams Reclamation Supervisor Relationship Specialty Start Date End Date Geena Ravi MD [id number] [facility] [place] [address] PCP - General Pediatrics 04/27/25
--- OUTSIDE RECORDS SUMMARY | 2025-08-15 18:52 | XMS_ITS | Clinical Summary ---
Author Organization [employer] Address [address] [facility] 7[address] [place] [address] Care Team Providers Care Librarian Helper Name Role Phone Maribel Donaldson MD Primary Care Provider [phone] Allergies Active Allergy Reactions Criticality Noted Date Comments Latex Swelling 02/21/2025 Other Reaction(s): Swelling of labia Medications benzoyl peroxide 5 % gelIndications: Cystic acne Apply topically 2 times daily. 60 g 2 5 07/04/20 26 Active cholecalciferol (Vitamin D-3) 50 MCG (1999 UT) capsuleIndicati ons:Vitamin D deficiency Take 1 capsule (50 mcg) by mouth Once per day. 90 capsule 3 Active Hospital, Clinic, or Other Facility Administered Medication [...] due after 05/29/26 -eye care facilitated by [facility] -dental home is in [place] -[facility] proxy filed 05/29/25 Assessment & Plan (06/06/2025 10:43 AM EDT): -next comprehensive annual evaluation due after 05/29/26 -eye care facilitated by [facility] -dental home is in [place] -[facility] proxy filed 05/29/25 Hx of scoliosis 05/29/2025 Overview (06/06/2025): Dx age 17, seen at [facility] with Dr. Starla Bob MD X rays done at [facility], scoliosis stable. PT referral placed and recommended follow up prn for stable scoliosis. Assessment & Plan (06/06/2025 10:43 AM EDT): Dx age 17, seen at [facility] with Dr. Starla Bob MD X rays done at [facility], scoliosis stable. PT referral placed and [...] standing desk via medical records -notes from [facility] requested 05/29/25 see scoliosis dx Assessment & Plan (06/06/2025 10:43 AM EDT): Likely musculoskeletal. Non-focal, normal motor exam without neurological deficits. No back pain red-flags: bowel/bladder incontinence, IVDU, urinary retention, saddle anesthesia, and significant motor deficits. -Recommend continued topicals and lidocaine patch prn. -Physical therapy referral placed 05/29/25 -she will request standing desk via medical records -notes from [facility] requested 05/29/25 see scoliosis dx Family [...] Encounters Date Type Department Care Team Description 08/15/2025 11:30 AM EST Office Visit [facility] [address] [place] [address] [phone] Rosina Henley CNM Checking of intrauterine device (Primary Dx); Abnormal uterine bleeding; Vaginal discharge 08/15/2025 Travel 08/14/2025 Telephone [facility] [address] [place] [phone] Maribel Donaldson MD chart prep 08/02/2025 1:00 PM EDT Office Visit [facility] [address] [place] [address] [phone] Adan Galeas DDS 07/22/2025 Telephone [facility] [address] [place] [address] [phone] Maribel Donaldson MD Nurse Triage 07/18/2025 1:15 PM EDT Procedure Visit [address] [address] Rosina Henley CNM Encounter for initial insertion of intrauterine contraceptive device (Primary Dx); Family planning; Vaginal discharge; Urinary symptom or sign 07/18/2025 Orders Only [address] [address] Rosina Henley CNM 07/18/[address] [address] Rosina Henley CNM Insurance 07/18/2025 Travel 07/17/[address] [address] Rosina Henley CNM chart prep 07/04/2025 9:45 AM EDT Office Visit [address] [address] Maribel Donaldson MD Cystic acne (Primary Dx); Family planning; Encounter for immunization; Vitamin D deficiency; Transaminitis 07/04/2025 Travel 07/03/[address] [address] Maribel Donaldson MD chart prep 06/12/2025 Telephone [facility] [address] [place] [phone] [place], [place] 05/29/2025 11:30 AM EDT Office Visit [address] [address] Maribel Donaldson MD Chronic midline thoracic back pain (Primary Dx); Hx of scoliosis; Dietary counseling; Exercise counseling; Abnormal menses; Family planning; Routine screening for STI (sexually transmitted infection); Screening cholesterol level; Other specified health status 05/29/2025 Travel from Last 3 Months Immunizations Immunization [...] Mass Index 28.9 08/15/2025 11:38 AM EST Plan of Treatment Upcoming Encounters Date Type Department Care Team (Late st Contact Info) Description 08/16/2025 1:00 PM EST Office Visit [facility] [address] [place] [address] 08/23/2025 2:15 PM EST Office Visit [facility] [address] [place] [address] Vilma Urbina [address] [place] [address] Health Maintenance Due Date Last Done Comments Dental Oral Exam 2005 Dental Prophylaxis 2005 Fluoride Varnish 01/02/2026 07/04/2025 Alcohol/Substance Use Screening 05/29/2026 05/29/2025 Depression Screening 05/29/2026 05/29/2025, 05/29/20 Disability Screening 05/29/2026 05/29/2025 SDOH Screening 05/29/2026 05/29/2025 COVID-19 Vaccine ( season) 2026 03/23/2021, 02/27/2021 Postponed from 06/03/2025 (Patient Refused) Chlamydia and Gonorrhea Screening 07/04/2026 07/04/2025, 05/07/2025, 12/05/2024, Additional history exists Tobacco Screening 08/02/2026 08/02/2025 Dental X-Ray: Bitewings 08/03/2026 08/02/2025 Family Planning (PISQ) 08/15/2026 08/15/2025 Dental X-Ray: Full Mouth 03/02/2027 03/01/2024 DTaP/Tdap/Td [...] 08/15/2025 11:50 AM EST Abnormal uterine bleeding CASE PRESENTATION, DETAILED AND EXTENSIVE TREATMENT PLANNING Routine 08/02/2025 1:00 PM EDT BITEWING - SINGLE RADIOGRAPHIC IMAGE Routine 08/02/2025 1:00 PM EDT INTRAORAL - PERIAPICAL FIRST RADIOGRAPHIC IMAGE Routine 08/02/2025 1:00 PM EDT PALLIATIVE (EMERGENCY) TREATMENT OF DENTAL PAIN - MINOR PROCEDURE Routine 08/02/2025 1:00 PM EDT POCT WET MOUNT/VERO Routine 07/18/2025 3: 52 PM EDT Vaginal discharge BACTERIAL VAGINOSIS PANEL Routine 07/18/2025 2:25 PM EDT POCT URINALYSIS DIPSTICK Routine 07/18/2025 1:33 PM EDT Urinary symptom or sign POCT , URINE Routine 07/18/2025 1:33 PM EDT Family planning IUD MANAGEMENT Routine 07/18/2025 1:15 PM EDT Encounter for initial insertion of intrauterine contraceptive device POCT , URINE Routine 07/04/2025 10:31 AM EDT Family planning CHLAMYDIA/N. GONORRHOEAE RNA, TMA, UROGENITAL Routine 07/04/2025 10:28 AM EDT Family planning VA APPLICATION TOPICAL FLUORIDE VARNISH BY PHS/QHP Routine [...] 07/03/2025 4:08 PM EDT Screening cholesterol level PANORAMIC RADIOGRAPHIC IMAGE Routine 03/01/2024 11:30 AM EDT Impacted tooth from Last 3 Months or Most Recently Relevant to Health Maintenance Results * (ABNORMAL) POCT Urinalysis (08/15/2025 11:59 AM EST) Only the most recent of2 resultswithin the time period is included. Color, UA Yellow Clarity, UA Clear Glucose, UA Negative Bilirubin, UA Negative Ketones, UA Negative Spec Grav, UA 1.025 Blood, UA Positive(A) Negative, None Detected Comment:trace pH, UA 5.5 Protein, UA Negative Urobilinogen, UA 0.2 Leukocytes, UA Negative Negative, Rare, Trace Nitrite, UA Negative Negative, None Detected Appearance, UA clear QC Media Lot # [id number] Lot# Expiration Date 6302,[id number] Urine (Urine, Random) 08/15/2025 11:59 AM EST [facility] POINT OF CARE TEST ENTER/ EDIT ORDERABLES Final Result * POCT Urine (08/15/2025 11:50 AM EST) Only the most recent of3 resultswithin the time period is included. Pathologist [facility] Preg Test, Ur Negative Negative, Indeterminate, None Detected, Invalid, Specimen unsatisfactory for evaluation, Weakly Positive, 2+ QC Media Lot # [id number] Lot# Expiration Date [id number] Urine 08/15/2025 11:5 0 AM EST [facility] POINT OF CARE TEST ENTER/ EDIT ORDERABLES Final Result * POCT fern test, vaginal fluid manually resulted (07/18/2025 3:52 PM EDT) Pathologist [facility] VERO Prep Negative Comment:pH 4.5, neg whiff, n eg clue, neg trich, neg yeast, neg wbc Vaginal Fluid Vaginal structure / Unknown 07/18/2025 3:52 PM EDT [facility] POINT OF CARE TEST ENTER/ EDIT ORDERABLES Final Result * Bacterial Vaginosis (07/18/2025 2:25 PM EDT) Pathologist [facility] TRICHOMONAS VAGINALIS DETECTION BY PCR NOT DETECTED Not Detect [facility] BACTERIAL VAGINOSIS DETECTION BY PCR NEGATIVE Negative [facility] Comment:The BV organism targ ets of the Xpert Xpress MVP test can becommensal in women; Xpert Xpress MVP positive results forbacterial vaginosis should be considered in conjunction withother clinical and patient information to determine thedisease status. Organisms that are not detected by the XpertXpress MVP test have also been reported to be associatedwith BV and aerobic vaginitis.The Xpert Xpress MVP test performance has not been evaluatedin patients under the age of 14. SANDEE GROUP DETECTION BY PCR NOT DETECTED Not Detect [facility] Sandee glab krusei PCR NOT DETECTED Not Detect [facility] 07/18/2025 2:25 PM EDT 07/18/2025 6:27 PM EDT us Rosina Henley CNM LAB MICROBIOLOGY - GENERA L ORDERABLES Final Result [facility] [address] [place] [phone] * IUD Management (07/18/2025 1:15 PM EDT) Narrative Rosina Henley CNM - 07/18/2025 1:15 PM EDT Rosina Henley CNM 07/18/2025 3:53 PM IUD Management Performed by: Rosina Henley CNM Authorized by: Rosina Henley CNM Procedure: IUD insertion Consent obtained by patient, parent, or legal power of research attorney - including discussion of procedure risks [...] tenaculum sites controlled with scopettes. Rosina Henley [facility] IN CLINIC/BEDSIDE ORDERAB LES Final Result * Chlamydia/N. Gonorrhoeae RNA, TMA, Vagina (07/04/2025 10:28 AM EDT) CT PCR NOT DETECTED Not Detect. [facility] Comment:A not detected test result [...] psychologicalconsequences. NG PCR NOT DETECTED Not Detect. [facility] Comment:A not detected test result [...] LAB MICROBIOLOGY - GENERAL ORDERABLES Final Result Performing Organization Address [facility]/ZIP Co de Phone Number [facility] [address] [place] [phone] * [place] APPLICATION TOPICAL FLUORIDE VARNISH BY PHS/QHP (07/04/2025 [...] 4:08 PM EDT) Syphilis Screen Nonreactive Nonreactive [facility] Blood Venous blood specimen / Unknown 07/03/2025 4:08 PM EDT 07/03/2025 6:03 PM EDT Maribel Donaldson MD LAB BLOOD ORDERABLES Final Result Performing Organization Address City/[facility]/ZIP Co de Phone Number [facility] [address] [place] [phone] [phone] * (ABNORMAL) Vitamin D, 25-Hydroxy, Total, Immunoassay (07/03/2025 4:08 PM EDT) Vitamin D 25-OH Total 26.6(L) >30 ng/mL [facility] Comment: Health Based Reference Values*< 20 ng/mL Ojkyksqsu33-52 ng/mL Insufficient> 30 ng/mL Sufficient*Constance BOWEN. N [...] BLOOD ORDERABLES Final Result Performing Organization Address [facility]/ZIP Co de Phone Number [facility] [address] [place] [phone] * TSH W/Reflex to FT4 (07/03/2025 4:08 PM EDT) TSH reflex Free T4 1.00 0.32 - 4.0 uIU/mL [facility] Blood Venous blood specimen / Unknown 07/03/2025 4:08 PM EDT 07/03/2025 6:03 PM EDT Maribel Donaldson MD LAB BLOOD ORDERABLES Final Result Performing Organization Address City/[facility]/ZIP Co de Phone Number [facility] [address] [place] [phone] * (ABNORMAL) CBC auto differential (07/03/2025 4:08 PM EDT) White Blood Count 8.3 4.8 - 10.8 X10*3/uL [facility] Red Blood Count 4.59 4.20 - 5.50 X10*6/uL [facility] Hemoglobin 12.1 12.0 - 16.0 g/dl [facility] Hematocrit 37.8 37.0 - 47.0 % [facility] Mean Corpuscular Volume 82.4 80.0 - 98.0 fL [facility] Mean Corpuscular Hemoglobin 26.4(L) 27.0 - 33.0 pg [facility] Mean Corpuscular HGB Conc 32.0 31.0 - 35.0 g/dl [facility] Red Cell Distribution Width 14.9 11.0 - 16.0 % [facility] Platelet Count 400 160 - 400 X10*3/uL [facility] Mean Platelet Volume 10.9 9.4 - 12.3 fL [facility] Neutrophils Percent Auto 61.9 45 - 73 % [facility] Imm Gran Pct Auto 0.2 0.0 - 0.4 % [facility] Lymphocytes Percent Auto 23.4 20 - 40 % [facility] Monocytes Percent Auto 8.2 2 - 11 % [facility] Eosinophils Percent Auto 5.5(H) 0 - 4 % [facility] Basophils Percent Auto 0.8 0 - 2 % [facility] NRBC Pct Auto 0.0 0.0 - 0.2 /100WBC [facility] Neutrophils Absolute Auto 5.1 2.0 - 8.3 x10*3/uL [facility] Imm Gran Abs Auto 0.02 0.00 - 0.03 X10*3/uL [facility] Lymphocytes Absolute Auto 1.9 1.2 - 4.9 X10*3/uL [facility] Monocytes Absolute Auto 0.7 0.1 - 1.2 X10*3/uL [facility] Eosinophils Absolute Auto 0.5(H) 0.0 - 0.4 X10*3/uL [facility] Basophils Absolute Auto 0.1 0.0 - 0.2 X10*3/uL [facility] NRBC Abs Auto 0.000 0.0 - 0.012 X10*3/uL [facility] Blood Venous blood specimen / Unknown 07/03/2025 4:08 PM EDT 07/03/2025 6:03 PM EDT Maribel Donaldson MD LAB BLOOD ORDERABLES Final Result Performing Organization Address [facility] Co de Phone Number [facility] [address] [place] [phone] * Hepatitis C Antibody with Reflex to HCV, RNA, Quantitative, Real-Time PCR (07/03/2025 4:08 PM EDT) Hepatitis C Antibody Nonreactive Nonreactive [facility] Comment:Antibodies to HCV no t detected; does not exclude early acuteHCV infection. Blood Venous blood specimen / Unknown 07/03/2025 4:08 PM EDT 07/03/2025 6:03 PM EDT Maribel Donaldson MD LAB BLOOD ORDERABLES Final Result Performing Organization Address [facility] Co de Phone Number [facility] [address] [place] [phone] * HIV-1/2 Antigen and Antibodies, Fourth Generation, with Reflexes (07/03/2025 4:08 PM EDT) HIV AB/AG Nonreactive Nonreactive [facility] Comment:HIV-1 p24 Ag and/or HIV-1/HIV-2 Ab not detected.A test result that is nonreactive does not exclude thepossibility of exposure to or infection with HIV-1 and/orHIV-2. Nonreactive results in this assay for individualswith prior exposure to HIV-1 and/or HIV-2 may be due toantigen and antibody levels that are below the limit ofdetection of this assay.The [employer] HIV Ag/Ab Combo assay result andsupplemental assay results should be interpreted inconjunction with the patient's clinical presentation,history and other laboratory results. If the results areinconsistent with clinical evidence, additional testing issuggested to confirm the result. Blood Venous blood specimen / Unknown 07/03/2025 4:08 PM EDT 07/03/2025 6:03 PM EDT Maribel Donaldson MD LAB BLOOD ORDERABLES Final Result Performing Organization Address City/[facility]/ZIP Co de Phone Number [facility] [address] [place] [phone] * Magnesium (07/03/2025 4:08 PM EDT) Magnesium 1.9 1.6 - 2.6 mg/dL [facility] Blood Venous blood specimen / Unknown 07/03/2025 4:08 PM EDT 07/03/2025 6:03 PM EDT Maribel Donaldson MD LAB BLOOD ORDERABLES Final Result Performing Organization Address [facility] Co de Phone Number [facility] [address] [place] [phone] * (ABNORMAL) Hepatic Function Panel (07/03/2025 4:08 PM EDT) Bilirubin, Total 0.2 0.0 - 1.0 mg/dL [facility] Bilirubin, Direct <0.2 0.0 - 0.5 mg/dL [facility] Aspartate Amino Transferase 46(H) 5 - 31 U/L [facility] Alanine Aminotransferase 42(H) 0 - 31 U/L [facility] Total Protein 7.7 6.5 - 8.0 g/dL [facility] Albumin Level 4.6 3.5 - 5.0 g/dL [facility] Alkaline Phosphatase 101 39 - 117 U/L [facility] Blood Venous blood specimen / Unknown 07/03/2025 4:08 PM EDT 07/03/2025 6:03 PM EDT Maribel Donaldson MD LAB BLOOD ORDERABLES Final Result Performing Organization Address City/[facility]/ZIP Co de Phone Number [facility] [address] [place] [phone] * Lipid Panel, Standard (07/03/2025 4:08 PM EDT) Triglycerides 76 <150 mg/dL [facility] Comment:Desirable Triglyceri de: less than 90 mg/dLBorderline High Triglyceride: 90-129 mg/dLHigh Triglyceride: greater than 130 mg/dL Cholesterol 156 <200 mg/dL [facility] Comment:Desirable Cholestero l: less than 170 mg/dLBorderline High Cholesterol: 170-199 mg/dLHigh Cholesterol: greater than 200 mg/dL LDL Cholesterol Calculated 91 <100 mg/dL [facility] Comment:Desirable LDL: less than 110 mg/dLBorderline LDL: 110-129 mg/dLHigh LDL: greater than or equal to 130 mg/dL HDL Cholesterol 50 >40 mg/dL [facility] Comment:Desirable HDL: great er than 45 mg/dLBorderline HDL: 40-45 mg/dLLow HDL: less than 40 mg/dL Note: This HDL assay may give artificially low results in patients with liver disease. Blood Venous blood specimen / Unknown 07/03/2025 4:08 PM EDT 07/03/2025 6:03 PM EDT Maribel Donaldson MD LAB BLOOD ORDERABLES Final Result Performing Organization Address [facility]/ZIP Co de Phone Number [facility] [address] [place] [phone] * (ABNORMAL) Basic Metabolic Panel (07/03/2025 4:08 PM EDT) Sodium 142 135 - 145 mmol/L [facility] Potassium 4.0 3.3 - 5.1 mmol/L [facility] Chloride 107 96 - 108 mmol/L [facility] Carbon Dioxide 28 22 - 29 mmol/L [facility] Anion Gap 11(L) 12 - 20 [facility] Urea Nitrogen (BUN) 13 9 - 16 mg/dL [facility] Creatinine, Serum 0.95 0.5 - 1.4 mg/dL [facility] Estimated Glomerular Filt Rate >60 [facility] Comment:Chronic Kidney Disea se: Estimated GFR < 60 mL/min/1.82d4Ihqzoe Kidney Disease: Estimated GFR < 15 mL/min/1.73m2 Glucose 84 60 - 115 mg/dL [facility] Calcium 9.3 8.4 - 10.2 mg/dL [facility] Blood Venous blood specimen / Unknown 07/03/2025 4:08 PM EDT 07/03/2025 6:03 PM EDT Maribel Donaldson MD LAB BLOOD ORDERABLES Final Result [facility] [address] [place] [phone] from Last 3 Months Insurance [facility]IAL DENT[facility] - [facility] PARTIAL (MEDICAID) Advance Directives Documents on File Type Date Recorded Patient Lace Weaver Expl anation Advance Directives and Living Will 05/30/2025 Health Care Proxy 05/29/25 Care Teams Librarian Helper Relationship Specialty Start Date End Date Maribel Donaldson MD [address] [place] [phone] PCP - General Family Medicine 05/13/25
--- OUTSIDE RECORDS SUMMARY | 2025-08-15 18:52 | XMS_ITS | Encounter Summary ---
Author Organization [employer] Address [address] [facility] [address] [place] [address] Care Team Providers Care General Office Dispatcher Name Role Phone Maribel Donaldson MD Primary Care Provider [phone] Reason for Visit * Reason Onset Date Comments chart prep 08/14/2025 Encounter Details Date Type Department Care Team ([facility] st Contact Info) Description 08/14/2025 Telephone [facility] [address], [place] [phone] Maribel Donaldson MD [address] [place], [place] [phone] chart prep Social History Tobacco Use Types [...] encounter Miscellaneous Notes * Telephone Encounter - Vero Arguello [place] - 08/14/2025 3:22 PM EST ..Chart Prep Labs: not done Images: not applicable Vaccines due: Covid Due Referrals: Not Applicable Screenings: Not Applicable Overdue care gaps: LMP documented in this encounter Plan of Treatment Upcoming Encounters Date Type Department Care Team (Late st Contact Info) Description 08/16/2025 1:00 PM EST Office Visit [facility] [address] [place] [phone] 08/23/2025 2:15 PM EST Office Visit [facility] [address] [place] [address] Vilma Urbina [address] [place] [address] documented as of this encounter Visit Diagnoses Not on filedocumented in this encounter Additional Health Concerns Assessment Noted Time PHQ-9 Depression Total Score: 4 05/29/20 12:06 PM EDT documented as of this encounter Care Teams General Office Dispatcher Relationship Specialty Start Date End Date Maribel Donaldson MD [address] [place] [address] PCP - General Family Medicine 05/13/25 documented as of this encounter
--- OUTSIDE RECORDS SUMMARY | 2025-08-15 18:52 | XMS_ITS | Clinical Summary ---
Author Organization [facility] Address [address] [place] [address] Phone Care Team Providers Care Seasoner Hand Name Role Phone Geena Ravi MD Primary Care Provider [phone] Allergies No known active allergies Medications Etonogestrel [...] -0.13)* * Growth percentiles are based on [facility] (Girls, 2-20 Years) data.] Vitamin D deficiency 05/17/2023 024 Overview (05/17/2023): Dx'd 01/2023- started on supplementation Assessment & Plan (02/14/2024 9:17 AM EDT): No supplementation at this time. Last vitamin D in 2022 was within normal range. Immunizations Immunization Administration Dates Next Due DTaP [...] complete this topic Procedures * Due to [place] [email or web address] law, this organization might not be sharing sensitive test results. Procedure Name Priority Date/Time Associated Diagnosis Comments CHLAMYDIA AND GONORRHEA, AMPLIFIED Routine 12/05/2024 4:23 PM EST Encounter for initial prescription of Nexplanon from Last 3 Months or Most Recently Relevant to Health Maintenance Results * Due to [place] [email or web address] law, this organization might not be sharing sensitive test results. * Chlamydia and Gonorrhoea, Amplified (12/05/2024 4:23 PM EST) C trach TUNG Negative Negative [facility] N gonorrhoeae TUNG Negative Negative [facility] Urine (Urine) 12/05/2024 4:2 3 PM EST 12/05/2024 Comment:Urine URINE Narrative [facility] - 12/06/2024 4:06 PM EST Performed at: 01 - [facility], [address], [place], [place] [id number] Medical Operations Supervisor: Remberto Waters MD, Phone: [phone] us Rob [facility] LAB MICROBIOLOGY - GENERAL ORD ERABLES Final Result [facility] [address] [place] [address] from Last 3 Months or Most Recently Relevant to Health Maintenance Care Teams Seasoner Hand Relationship Specialty Start Date End Date Geena Ravi MD [address] [facility] [place] [address] PCP - General Pediatrics 07/19/22
[2025-08-16 00:45] LABS: Bacterial Vaginosis PCR NEGATIVE (Negative); Candida Group PCR NOT DETECTED (Not Detect); Candida glab krusei PCR NOT DETECTED (Not Detect); Trichomonas vaginalis PCR NOT DETECTED (Not Detect)
== END 2025-08-15 16:26 | disposition home or self-care (01) ==
LOC: HO.HHCLNP 16:25
PROVIDERS: Visit Provider Advanced Practice Midwife
DX: N89.8 Other specified noninflammatory disorders of vagina (principal)
CPT/HCPCS: 81515